=== PATIENT | female | born 1950 | race Caucasian/White ===

== ENCOUNTER 2019-05-22 14:33 | Emergency (ER) | payer MEDICARE, BC ==
[2019-05-22] MEDS ORDERED: methylPREDNISolone Sod Succ/PF 125 MG/2 ML VIAL ONE (15:05)
[2019-05-22 15:16] LABS: #Basophils 0.1 thou/uL (0.0-0.2); #Eosinphils 0.1 thou/uL (0.0-0.7); #Lymphocytes 0.7 thou/uL (1.20-3.40); #Monocytes 0.6 thou/uL (0.11-0.59); #Neutrophils 5.2 thou/uL (1.40-6.50); %Basophils 1.1 % (0.0-1.0); %Eosinophils 1.8 % (0.0-10.0); %Lymphocytes 10.8 % (21.0-51.0); %Monocytes 9.1 % (0.0-10.0); %Neutrophils 77.3 % (42.0-75.0); ALT (SGPT) 19 U/L (8-55); AST (SGOT) 18 U/L (5-34); Albumin 4.5 g/dL (3.4-4.8); Alkaline Phosphatase 137 U/L (40-150); Anion Gap 16 mmol/L (10-20); BUN (Urea Nitrogen) 8 mg/dL (9.8-20.1); Bilirubin, Total 0.4 mg/dL (0.2-1.2); Calc. Creatinine Clearance 0 mL/min (70-130); Calcium 9.7 mg/dL (7.8-10.44); Carbon Dioxide 26 mmol/L (23-31); Chloride 100 mmol/L (98-107); Estimated GFR-MDRD 73; Globulin 3.2 g/dL (2.4-3.5); Glucose 96 mg/dL (80-115); Hemoglobin 11.9 g/dL (12.0-16.0); Mean Corpuscular HGB CONC 32.5 g/dL (32.0-36.0); Mean Corpuscular Hemoglobin 30.8 pg (27.0-31.0); Mean Corpuscular Volume 94.9 fL (78.0-98.0); Mean Platelet Volume 5.3 fL (7.4-10.4); Platelet Count 280 thou/uL (130-400); Protein, Total 7.7 g/dL (6.0-8.3); RBC Distribution Width 11.6 % (11.5-14.5); Red Blood Cell (RBC) Count 3.86 mill/uL (4.20-5.40); Sodium 138 mmol/L (136-145); White Blood Cell (WBC) Count 6.7 thou/uL (4.8-10.8)
[2019-05-22 15:30] LABS: Bilirubin Negative (Negative); Blood, Urine Trace (Negative); Clarity Clear (Clear); Glucose, Urine (Dipstick) Negative (Negative); Leukocyte Large (Negative); Nitrite Negative (Negative); Protein, Urine (Dipstick) Negative (Neg-Trace); Urobilinogen 0.2 mg/dL (Less than 2)
[2019-05-22 15:36] LABS: Bacteria/HPF Rare-Few HPF (None Seen); RBC/HPF 0-3 HPF (0-3); Squamous Epithelial 0-3 HPF (0-3); WBC/HPF 21-50 HPF (0-3)
[2019-05-22] MEDS ORDERED: Albuterol Sulfate 2.5 mg/0.5 ml Neb ONE (15:43)
--- NOTE | 2019-05-22 16:32 | RAD ---
CHEST ONE VIEW: HISTORY: Dyspnea. COMPARISON: Radiograph from 09/23/2018. FINDINGS: The lungs are hyperinflated. Scarring in both upper lobes. Heart size is mildly enlarged. No pneum othorax or effusion. No focal air space consolidation. IMPRESSION: 1. Chronic findings. 2. No acute intrathoracic abnormality. POS: HOME
[2019-05-22] MEDS ORDERED: ALPRAZolam 0.5 MG TAB ONE (17:10)
[2019-05-22 18:21] LABS: Troponin I Less than 0.010 ng/mL (< 0.028)
== END 2019-05-22 18:15 | disposition short-term general hospital (02) ==
LOC: NAV ERS 14:33
DX: I49.3 Ventricular premature depolarization (principal); J44.9 Chronic obstructive pulmonary disease, unspecified; I25.10 Atherosclerotic heart disease of native coronary artery without angina pectoris; I25.2 Old myocardial infarction; E78.5 Hyperlipidemia, unspecified; I10 Essential (primary) hypertension; F41.9 Anxiety disorder, unspecified; Z79.899 Other long term (current) drug therapy
CPT/HCPCS: 36415; 71045; 80053; 81003; 81015; 84484; 85025; 93005; 96374; J2930; J7611; J7620

== ENCOUNTER 2020-02-07 19:47 | Inpatient (IN) | payer MEDICARE, BC, OTHER ==
[2020-02-07] MEDS ORDERED: Albuterol Sulfate 2.5 mg/3 ml Neb NEB PRN (21:36)
[2020-02-07] MEDS ORDERED: Ondansetron ODT 4 MG TAB PO PRN (21:38)
[2020-02-07] MEDS: Acetaminophen 325 MG TAB PO PRN (22:10)
[2020-02-07] MEDS: ALPRAZolam 0.25 MG TAB PO PRN (22:12)
[2020-02-07] MEDS: Albuterol Sulfate 2.5 mg/3 ml Neb NEB SCH (22:16)
[2020-02-07] MEDS: Ipratropium Bromide 2.5 ml Neb NEB SCH (23:14)
[2020-02-07 23:52] VITALS: BMI 26.5
[2020-02-08] MEDS: Albuterol Sulfate 2.5 mg/3 ml Neb NEB SCH ×6 (01:40→22:06)
[2020-02-08] MEDS: Budesonide 0.5 MG/2 ML NEB NEB SCH ×2 (05:35→18:10)
[2020-02-08] MEDS: Acetaminophen 325 MG TAB PO PRN (05:35)
[2020-02-08] MEDS: Ipratropium Bromide 2.5 ml Neb NEB SCH ×4 (05:35→23:33)
[2020-02-08] MEDS: Aspirin Chewable 81 MG TAB PO SCH (09:24)
[2020-02-08] MEDS: Dicyclomine 20 MG TAB PO SCH ×2 (09:24→21:10)
[2020-02-08] MEDS: predniSONE 20 MG TAB PO SCH (09:24)
[2020-02-08] MEDS: Citalopram 10 MG TAB PO SCH (09:24)
[2020-02-08] MEDS: Gabapentin 300 MG CAP PO SCH ×3 (09:25→21:11)
[2020-02-08] MEDS: Fluticasone Propionate Nasal Spray 16 gm Bottle NASAL SCH (09:25)
[2020-02-08] MEDS: guaiFENesin ER 600 MG TAB PO SCH ×2 (09:25→21:11)
[2020-02-08] MEDS: Enoxaparin Sodium 40 MG/0.4 ML SYRINGE SC SCH (09:25)
[2020-02-08] MEDS: Metoprolol Tartrate 25 MG TAB PO SCH ×2 (09:25→21:11)
[2020-02-08] MEDS: ALPRAZolam 0.25 MG TAB PO PRN (15:40)
[2020-02-08] MEDS: Famotidine 20 MG TAB PO SCH (21:10)
[2020-02-08] MEDS: Atorvastatin Calcium 20 MG TAB PO SCH (21:11)
[2020-02-09] MEDS: Albuterol Sulfate 2.5 mg/3 ml Neb NEB SCH ×6 (03:03→22:06)
[2020-02-09] MEDS: Ipratropium Bromide 2.5 ml Neb NEB SCH ×3 (05:27→18:24)
[2020-02-09] MEDS: Budesonide 0.5 MG/2 ML NEB NEB SCH ×2 (05:54→18:24)
[2020-02-09] MEDS: guaiFENesin ER 600 MG TAB PO SCH ×2 (08:43→21:08)
[2020-02-09] MEDS: Acetaminophen 325 MG TAB PO PRN ×2 (08:43→14:37)
[2020-02-09] MEDS: Dicyclomine 20 MG TAB PO SCH ×2 (08:44→21:08)
[2020-02-09] MEDS: predniSONE 20 MG TAB PO SCH (08:44)
[2020-02-09] MEDS: Gabapentin 300 MG CAP PO SCH ×3 (08:44→21:09)
[2020-02-09] MEDS: Citalopram 10 MG TAB PO SCH (08:44)
[2020-02-09] MEDS: Metoprolol Tartrate 25 MG TAB PO SCH ×2 (08:44→21:09)
[2020-02-09] MEDS: Aspirin Chewable 81 MG TAB PO SCH (08:44)
[2020-02-09] MEDS: Enoxaparin Sodium 40 MG/0.4 ML SYRINGE SC SCH (08:44)
[2020-02-09] MEDS: Fluticasone Propionate Nasal Spray 16 gm Bottle NASAL SCH (08:44)
[2020-02-09] MEDS: ALPRAZolam 0.25 MG TAB PO PRN (09:15)
--- NOTE | 2020-02-09 18:39 | HP ---
HISTORY OF PRESENT ILLNESS: The patient is a 69-year-old white female, well known to myself with a history of cancer of the colon, status post radiation, but superimposed on previous severe underlying COPD and subsequently has significant shortness of breath on minimal exertion, who has had a recent exacerbation of her COPD, which has responded to IV steroids and aggressive nebulizer treatment, but has remained very weak, dyspneic on exertion, and therefore, is admitted to [facility] for continued PT and OT. PAST MEDICAL HISTORY: Also remarkable for myocardial infarction 20 years ago, status post single angioplasty with no recurrence since then. She also has a history of hypertension, hyperlipidemia, above-mentioned lung cancer, and COPD. PAST SURGICAL HISTORY: Positive for appendectomy, cholecystectomy, hysterectomy, angioplasty. FAMILY MEDICAL HISTORY: Noncontributory. SOCIAL HISTORY: She has greater than 30 pack-year history of smoking, has not smoked in 5 years. She drinks occasional alcohol. She is a nondrug user. She lives with her of 50 years. ALLERGIES: SHE IS ALLERGIC TO MULTIPLE MEDICATIONS INCLUDING PENICILLIN, OFLOXACIN, PREGABALIN, SERTRALINE, CHLORPROMAZINE, SULFA, ASPIRIN, DECONGESTANT. MEDICATIONS: At this time include; 1. Pepcid 20 mg nightly. 2. Gabapentin 300 three times daily. 3. Lipitor 20 nightly. 4. Bentyl 20 mg twice daily. 5. Celexa 10 mg daily. 6. Xanax 0.25 t.i.d. and p.r.n. 7. Incruse Ellipta 1 puff daily. 8. Ventolin 2 puffs every 4 hours as needed. 9. Flonase 1 spray daily. 10. Mucinex 300 mg every 12 hours. 11. Anoro Ellipta 1 puff daily. 12. Metoprolol 25 twice daily. 13. Proventil 1 puff every 4 hours as needed. 14. Pulmicort 0.25 inhaled twice daily nebulizer. 15. Prednisone 40 mg daily. REVIEW OF SYSTEMS: HEENT: She denies any headaches, dizziness, change in vision or hearing, hoarseness, or dysphagia. PULMONARY: She denies cough, but has dyspnea on minimal exertion, not at rest. She is oxygen dependent. CARDIOVASCULAR: She denies chest pain, palpitations, orthopnea, or paroxysmal nocturnal dyspnea. GASTROINTESTINAL: She denies nausea, vomiting, diarrhea, constipation, or abdominal pain. GENITOURINARY: She denies dysuria, hematuria, or nocturia. MUSCULOSKELETAL: She has diffuse weakness, but is willing to cooperate with therapy and has been cooperating with therapy at [place]. PHYSICAL EXAMINATION: GENERAL: The patient is an elderly white female, who appears older than stated age. She is oriented x3 and cooperative. VITAL SIGNS: Show pulse 73, respirations 16, O2 sats 97% on 2 L, blood pressure 124/68. LUNGS: Clear with markedly decreased breath sounds. No rales or rhonchi. CARDIAC: Regular rhythm. PMI in the epigastric space. ABDOMEN: Soft and nontender. SKIN/EXTREMITIES: No edema, clubbing, cyanosis. NEUROLOGICAL: Intact. LABORATORY DATA: Most recent laboratory shows sodium 136, potassium 4.4, chloride 100, bicarb 22, BUN 9, creatinine 0.75, glucose 174. Procalcitonin 0.02, total protein 6.8. White count 5300, hematocrit 36, hemoglobin 12. ASSESSMENT: 1. A 69-year-old white female with history of COPD and cancer of the lung, status post radiation therapy, presents with exacerbation, which has improved with IV and now oral steroids and aggressive nebulizers, but has become critically deconditioned and therefore admitted to [facility] for continued PT and OT. 2. Fibromyalgia, stable. 3. Anxiety, controlled on alprazolam. 4. Coronary artery disease, status post distant [place] and angioplasty. 5. Hypertension, controlled to goal. PLAN: 1. Continue PT, OT. 2. Continue oxygen supplementation 2 L, she is on this at home. 3. Continue anxiety medications, alprazolam. 4. Continue dicyclomine for irritable bowel. 5. Continue prednisone, slow taper. 6. Continue gabapentin for fibromyalgia and peripheral neuropathy. Job ID: [id number]
[2020-02-09] MEDS: Famotidine 20 MG TAB PO SCH (21:08)
[2020-02-09] MEDS: Atorvastatin Calcium 20 MG TAB PO SCH (21:08)
[2020-02-09] MEDS: ALPRAZolam 0.25 MG TAB PO SCH (21:09)
[2020-02-10] MEDS: Ipratropium Bromide 2.5 ml Neb NEB SCH ×5 (01:24→23:58)
[2020-02-10] MEDS: Albuterol Sulfate 2.5 mg/3 ml Neb NEB SCH ×6 (02:30→22:16)
[2020-02-10] MEDS: Budesonide 0.5 MG/2 ML NEB NEB SCH ×2 (06:03→18:02)
[2020-02-10] MEDS: Fluticasone Propionate Nasal Spray 16 gm Bottle NASAL SCH (09:07)
[2020-02-10] MEDS: Acetaminophen 325 MG TAB PO PRN (09:08)
[2020-02-10] MEDS: Citalopram 10 MG TAB PO SCH (09:08)
[2020-02-10] MEDS: Dicyclomine 20 MG TAB PO SCH ×2 (09:08→20:24)
[2020-02-10] MEDS: Aspirin Chewable 81 MG TAB PO SCH (09:08)
[2020-02-10] MEDS: guaiFENesin ER 600 MG TAB PO SCH ×2 (09:08→20:25)
[2020-02-10] MEDS: Gabapentin 300 MG CAP PO SCH ×3 (09:08→20:24)
[2020-02-10] MEDS: Enoxaparin Sodium 40 MG/0.4 ML SYRINGE SC SCH (09:08)
[2020-02-10] MEDS: predniSONE 20 MG TAB PO SCH (09:08)
[2020-02-10] MEDS: Metoprolol Tartrate 25 MG TAB PO SCH ×2 (09:09→20:25)
[2020-02-10] MEDS: ALPRAZolam 0.25 MG TAB PO SCH ×3 (09:09→20:24)
[2020-02-10] MEDS: Nitrofurantoin Macrocrystal 50 MG CAP PO SCH ×3 (13:20→20:25)
[2020-02-10] MEDS: Famotidine 20 MG TAB PO SCH (20:24)
[2020-02-10] MEDS: Atorvastatin Calcium 20 MG TAB PO SCH (20:24)
[2020-02-11] MEDS: Albuterol Sulfate 2.5 mg/3 ml Neb NEB SCH ×6 (02:16→22:17)
[2020-02-11] MEDS: Ipratropium Bromide 2.5 ml Neb NEB SCH ×4 (05:28→23:36)
[2020-02-11] MEDS: Acetaminophen 325 MG TAB PO PRN ×2 (05:37→09:45)
[2020-02-11] MEDS: Budesonide 0.5 MG/2 ML NEB NEB SCH ×2 (06:15→17:56)
[2020-02-11] MEDS: predniSONE 20 MG TAB PO SCH (09:32)
[2020-02-11] MEDS: Metoprolol Tartrate 25 MG TAB PO SCH ×2 (09:43→21:12)
[2020-02-11] MEDS: Gabapentin 300 MG CAP PO SCH ×3 (09:44→21:11)
[2020-02-11] MEDS: ALPRAZolam 0.25 MG TAB PO SCH ×2 (09:44→14:03)
[2020-02-11] MEDS: Aspirin Chewable 81 MG TAB PO SCH (09:44)
[2020-02-11] MEDS: Dicyclomine 20 MG TAB PO SCH ×2 (09:44→21:11)
[2020-02-11] MEDS: Nitrofurantoin Macrocrystal 50 MG CAP PO SCH ×4 (09:45→21:12)
[2020-02-11] MEDS: Citalopram 10 MG TAB PO SCH (09:45)
[2020-02-11] MEDS: Enoxaparin Sodium 40 MG/0.4 ML SYRINGE SC SCH (09:45)
[2020-02-11] MEDS: guaiFENesin ER 600 MG TAB PO SCH ×2 (09:45→21:11)
[2020-02-11] MEDS: Fluticasone Propionate Nasal Spray 16 gm Bottle NASAL SCH (09:46)
--- NOTE | 2020-02-11 12:00 | PRG ---
DATE OF SERVICE: 02/10/2020 SUBJECTIVE: The patient feels well. No complaints, lying in bed, but has not had therapy today. She is having no cough or shortness of breath at rest. She is eating well. Good bowel movements. Feels she is getting better and will hopefully improve enough to be discharged to home next week. OBJECTIVE: VITAL SIGNS: Temperature is 97, pulse 88, respirations 20, O2 sats 96% on 2 L, blood pressure 117/55. LUNGS: Clear. CARDIAC: C showed regular rhythm. ABDOMEN: Soft, nontender. SKIN/EXTREMITIES: Showed no edema. LABORATORY DATA: Urine culture did return E coli sensitive to the nitrofurantoin the patient is on. ASSESSMENT: 1. Resolving chronic obstructive pulmonary disease with exacerbation. 2. Stable cancer of the lung status post radiation therapy. 3. Sensitive Escherichia coli urinary tract infection, on nitrofurantoin. 4. Severe deconditioning, slowly improving. 5. Chronic hypoxemia secondary to chronic obstructive pulmonary disease, stable. PLAN: 1. Continue PT, OT to restart Wednesday. Continue O2 supplementation. 2. Continue nitrofurantoin 50 mg four times daily. 3. Start steroid taper on 02/12. Job ID: [id number]
--- NOTE | 2020-02-11 12:12 | PRG ---
DATE OF SERVICE: 02/09/2020 SUBJECTIVE: The patient feels well, resting in bed, did not have therapy today. She is having minimal symptoms of dysuria, but mainly of cloudy urine. OBJECTIVE: VITAL SIGNS: Temperature is 98, pulse 106, respirations 20, O2 sats 96% on room air, blood pressure is 110/73. ASSESSMENT: 1. Severe chronic obstructive pulmonary disease exacerbation, resolving with steroid taper and nebulizers. 2. Possible urinary tract infection with cloudy urine and pyuria, bacteriuria. We will start on Macrodantin as the patient is not allergic to this and hopefully will be sensitive. 3. Irritable bowel syndrome, stable. 4. Anxiety, stable. 5. Fibromyalgia, stable. PLAN: 1. Start Macrodantin 50 mg four times daily. 2. Continue prednisone 40 mg daily for one more day and handheld nebulizers. 3. Continue citalopram and alprazolam. 4. Continue Bentyl. 5. Hold physical therapy until Wednesday. Job ID: [id number]
--- NOTE | 2020-02-11 12:21 | PRG ---
DATE OF SERVICE: 02/08/2020 SUBJECTIVE: The patient feels well today, resting, exhausted after therapy, but feels she is getting better. OBJECTIVE: VITAL SIGNS: Shows her pulse 69, respirations 20, O2 sats 96% on 2 L, blood pressure 108/66. LUNGS: Clear. CARDIAC: Shows regular rhythm. ABDOMEN: Soft, nontender. LABORATORY DATA: Showing pyuria and bacteriuria. Culture pending. ASSESSMENT: 1. Severe chronic obstructive pulmonary disease with exacerbation, resolving. 2. Cancer of the lung, status post radiation therapy. No evidence of recurrence. 3. Probable urinary tract infection. We will withhold treatment until sensitivities because of multiple allergies. 4. Coronary artery disease, distant and asymptomatic. 5. Hypertension, controlled to goal. PLAN: 1. Continue PT and OT. Continue steroids for COPD exacerbation and handheld nebulizers. 2. Await results of urine culture. 3. Continue 2 L O2 chronically. 4. Continue dicyclomine for irritable bowel. 5. Continue alprazolam for anxiety. Job ID: [id number]
[2020-02-11] MEDS: Famotidine 20 MG TAB PO SCH (21:11)
[2020-02-11] MEDS: Atorvastatin Calcium 20 MG TAB PO SCH (21:11)
[2020-02-11] MEDS ORDERED: ALPRAZolam 0.5 MG TAB PO PRN (22:02)
[2020-02-11] MEDS ORDERED: ALPRAZolam 0.5 MG TAB PO SCH (22:15)
[2020-02-12] MEDS: Albuterol Sulfate 2.5 mg/3 ml Neb NEB SCH ×6 (02:08→22:24)
[2020-02-12] MEDS: Ipratropium Bromide 2.5 ml Neb NEB SCH ×4 (05:20→23:48)
[2020-02-12] MEDS: Budesonide 0.5 MG/2 ML NEB NEB SCH ×2 (05:44→18:36)
[2020-02-12] MEDS: Nitrofurantoin Macrocrystal 50 MG CAP PO SCH ×4 (09:30→20:13)
[2020-02-12] MEDS: predniSONE 20 MG TAB PO SCH (09:30)
[2020-02-12] MEDS: Enoxaparin Sodium 40 MG/0.4 ML SYRINGE SC SCH (09:30)
[2020-02-12] MEDS: Metoprolol Tartrate 25 MG TAB PO SCH ×2 (09:30→20:13)
[2020-02-12] MEDS: Gabapentin 300 MG CAP PO SCH ×3 (09:30→20:13)
[2020-02-12] MEDS: Fluticasone Propionate Nasal Spray 16 gm Bottle NASAL SCH (09:30)
[2020-02-12] MEDS: Dicyclomine 20 MG TAB PO SCH ×2 (09:31→20:13)
[2020-02-12] MEDS: Aspirin Chewable 81 MG TAB PO SCH (09:31)
[2020-02-12] MEDS: Citalopram 10 MG TAB PO SCH (09:31)
[2020-02-12] MEDS: ALPRAZolam 0.5 MG TAB PO SCH ×2 (09:31→15:18)
[2020-02-12] MEDS: guaiFENesin ER 600 MG TAB PO SCH ×2 (09:31→20:13)
[2020-02-12] MEDS: Acetaminophen 325 MG TAB PO PRN (15:18)
[2020-02-12] MEDS: ALPRAZolam 0.25 MG TAB PO SCH (20:12)
[2020-02-12] MEDS: Atorvastatin Calcium 20 MG TAB PO SCH (20:12)
[2020-02-12] MEDS: Famotidine 20 MG TAB PO SCH (20:13)
[2020-02-13] MEDS: Albuterol Sulfate 2.5 mg/3 ml Neb NEB SCH ×6 (02:48→21:08)
[2020-02-13] MEDS: Ipratropium Bromide 2.5 ml Neb NEB SCH ×3 (05:45→17:46)
[2020-02-13] MEDS: Budesonide 0.5 MG/2 ML NEB NEB SCH ×2 (06:09→17:49)
[2020-02-13] MEDS: Enoxaparin Sodium 40 MG/0.4 ML SYRINGE SC SCH (09:16)
[2020-02-13] MEDS: Citalopram 10 MG TAB PO SCH (09:17)
[2020-02-13] MEDS: Gabapentin 300 MG CAP PO SCH ×3 (09:17→21:08)
[2020-02-13] MEDS: guaiFENesin ER 600 MG TAB PO SCH ×2 (09:17→21:07)
[2020-02-13] MEDS: predniSONE 20 MG TAB PO SCH (09:17)
[2020-02-13] MEDS: Aspirin Chewable 81 MG TAB PO SCH (09:17)
[2020-02-13] MEDS: Metoprolol Tartrate 25 MG TAB PO SCH ×2 (09:17→21:08)
[2020-02-13] MEDS: Dicyclomine 20 MG TAB PO SCH ×2 (09:17→21:08)
[2020-02-13] MEDS: Nitrofurantoin Macrocrystal 50 MG CAP PO SCH ×4 (09:18→21:07)
[2020-02-13] MEDS: ALPRAZolam 0.25 MG TAB PO SCH ×4 (09:19→21:12)
[2020-02-13] MEDS: Fluticasone Propionate Nasal Spray 16 gm Bottle NASAL SCH (09:20)
[2020-02-13] MEDS: Acetaminophen 325 MG TAB PO PRN (09:24)
[2020-02-13] MEDS: Famotidine 20 MG TAB PO SCH (21:07)
[2020-02-13] MEDS: Simethicone Chewable 80 MG TAB PO SCH (21:08)
[2020-02-13] MEDS: Atorvastatin Calcium 20 MG TAB PO SCH (21:08)
[2020-02-14] MEDS: Ipratropium Bromide 2.5 ml Neb NEB SCH ×5 (00:07→21:49)
[2020-02-14] MEDS: Albuterol Sulfate 2.5 mg/3 ml Neb NEB SCH ×6 (01:57→22:04)
[2020-02-14] MEDS: Budesonide 0.5 MG/2 ML NEB NEB SCH ×2 (05:18→17:08)
[2020-02-14] MEDS: Fluticasone Propionate Nasal Spray 16 gm Bottle NASAL SCH (08:24)
[2020-02-14] MEDS: ALPRAZolam 0.25 MG TAB PO SCH ×3 (08:25→21:49)
[2020-02-14] MEDS: Saccharomyces boulardii 250 MG CAP PO SCH (08:25)
[2020-02-14] MEDS: Simethicone Chewable 80 MG TAB PO SCH ×2 (08:25→14:17)
[2020-02-14] MEDS: predniSONE 20 MG TAB PO SCH (08:25)
[2020-02-14] MEDS: Citalopram 10 MG TAB PO SCH (08:26)
[2020-02-14] MEDS: Enoxaparin Sodium 40 MG/0.4 ML SYRINGE SC SCH (08:26)
[2020-02-14] MEDS: Dicyclomine 20 MG TAB PO SCH ×2 (08:26→21:47)
[2020-02-14] MEDS: guaiFENesin ER 600 MG TAB PO SCH ×2 (08:26→21:47)
[2020-02-14] MEDS: Gabapentin 300 MG CAP PO SCH ×2 (08:26→14:17)
[2020-02-14] MEDS: Nitrofurantoin Macrocrystal 50 MG CAP PO SCH ×4 (08:27→21:49)
[2020-02-14] MEDS: Aspirin Chewable 81 MG TAB PO SCH (08:27)
[2020-02-14] MEDS: Metoprolol Tartrate 25 MG TAB PO SCH ×2 (12:26→21:48)
[2020-02-14] MEDS: Acetaminophen 325 MG TAB PO PRN (13:42)
--- NOTE | 2020-02-14 21:29 | PRG ---
DATE OF SERVICE: 02/13/2020 SUBJECTIVE: The patient feels very fatigued. No cough, sputum production, or chest pain, but is having dizzy spells and undergoing her therapy. OBJECTIVE: VITAL SIGNS: Temperature is 97.4, pulse 69, respirations 15, O2 sats 98% on room air, and blood pressure . LUNGS: Show decreased breath sounds. CARDIAC: Showed regular rhythm. ABDOMEN: Soft and nontender. SKIN/EXTREMITIES: Showed no edema. ASSESSMENT: 1. Chronic obstructive pulmonary disease with exacerbation, resolving with steroid taper and bronchodilators. 2. Deconditioning, improving slowly with weakness and shortness of breath. 3. Coronary artery disease, asymptomatic with distant myocardial infarction. 4. Cancer of the lung, status post radiation ___and will decrease prednisone to 10 mg daily. PLAN: 1. Continue PT, OT. 2. Continue to monitor currently for urinary tract infection. 3. Continue pain medications from prehospitalization. Job ID: [id number] [facility]
--- NOTE | 2020-02-14 21:41 | PRG ---
DATE OF SERVICE: 02/14/2020 OBJECTIVE: The patient is resting well with no complaints, awaiting for more therapy tomorrow. She became severely fatigued with therapy having some loose stools but only minimal abdominal pain. OBJECTIVE: VITAL SIGNS: Temperature is 98.2, pulse 75, respirations 18, O2 sats 100% on 2 L, and blood pressure 112/61. LUNGS: Show decreased breath sounds. CARDIAC: Regular rhythm. ABDOMEN: Soft and nontender. SKIN AND EXTREMITIES: Show trace edema. No clubbing, or cyanosis. ASSESSMENT: 1. Resolving exacerbation of chronic obstructive pulmonary disease, on prednisone taper. 2. Stable cancer of the lung status post radiation therapy. No evidence of recurrence. 3. Sensitive Escherichia coli urinary tract infection, on nitrofurantoin. 4. Severe deconditioning, improving. 5. Chronic hypoxia secondary to chronic obstructive pulmonary disease, stable. PLAN: 1. Continue PT and OT. 2. Continue nitrofurantoin 50 mg 4 times daily. 3. Start steroid taper on __wednesday . Job ID: [id number] MTDD
[2020-02-14] MEDS: Famotidine 20 MG TAB PO SCH (21:47)
[2020-02-14] MEDS: Gabapentin 100 MG CAP PO SCH (21:47)
[2020-02-14] MEDS: Atorvastatin Calcium 20 MG TAB PO SCH (21:48)
[2020-02-15] MEDS: Simethicone Chewable 80 MG TAB PO SCH ×4 (00:54→22:12)
[2020-02-15] MEDS: Albuterol Sulfate 2.5 mg/3 ml Neb NEB SCH ×6 (02:22→22:33)
[2020-02-15] MEDS: Ipratropium Bromide 2.5 ml Neb NEB SCH ×3 (06:11→17:45)
[2020-02-15] MEDS: Budesonide 0.5 MG/2 ML NEB NEB SCH ×2 (06:12→17:45)
--- NOTE | 2020-02-15 06:42 | PRG ---
DATE OF SERVICE: 02/12/2020 SUBJECTIVE: The patient is somewhat fatigued after having therapy today. She is resting this afternoon, and she was not able to do all of her therapy. She is having no symptoms at rest. No shortness of breath or chest pain. OBJECTIVE: VITAL SIGNS: Pulse is 81, respirations 18, O2 saturation is on room air, and blood pressure 125/68. LUNGS: Show decreased breath sounds. CARDIAC: Showed regular rhythm. ABDOMEN: Soft, nontender. ASSESSMENT: 1. Resolving exacerbation of chronic obstructive pulmonary disease. 2. Severe deconditioning . 3. Coronary artery disease, distant and asymptomatic. 4. Escherichia coli urinary tract infection, resolving with nitrofurantoin. PLAN: 1. Continue PT, OT. 2. Continue O2 supplementation. 3. Continue to monitor for signs of urosepsis. 4. Steroid taper will be started tomorrow. Job ID: [id number]
--- NOTE | 2020-02-15 06:48 | PRG ---
DATE OF SERVICE: 02/14/2020 SUBJECTIVE: The patient states she is still feeling a little weak; especially when she takes her blood pressure medicines, unable to do her therapy. OBJECTIVE: VITAL SIGNS: Show decreased blood pressure of 95/52, pulse of 93 on standing today with blood pressure of 111/57 and pulse of 75, O2 saturation of 96% and blood pressure lying. LUNGS: Show decreased breath sounds. CARDIAC EXAMINATION: Showed regular rhythm. ABDOMEN: Soft and nontender. ASSESSMENT: 1. Severe deconditioning, being limited by dyspnea on exertion and lower blood pressure. 2. Cancer of the lung. No evidence of recurrence. PLAN: 1. Decrease gabapentin to 200 mg 3 times daily, decrease metoprolol to 12.5 twice daily. 2. Monitor vital signs. 3. Monitor fatigue and weakness. 4. Continue to monitor chronic weakness .. Job ID: [id number] MTDD
[2020-02-15] MEDS: Nitrofurantoin Macrocrystal 50 MG CAP PO SCH ×4 (08:11→22:10)
[2020-02-15] MEDS: ALPRAZolam 0.25 MG TAB PO SCH ×3 (08:11→22:10)
[2020-02-15] MEDS: Enoxaparin Sodium 40 MG/0.4 ML SYRINGE SC SCH (08:12)
[2020-02-15] MEDS: Gabapentin 100 MG CAP PO SCH ×3 (08:12→22:10)
[2020-02-15] MEDS: predniSONE 20 MG TAB PO SCH (08:13)
[2020-02-15] MEDS: guaiFENesin ER 600 MG TAB PO SCH ×2 (08:14→22:09)
[2020-02-15] MEDS: Saccharomyces boulardii 250 MG CAP PO SCH (08:14)
[2020-02-15] MEDS: Citalopram 10 MG TAB PO SCH (08:14)
[2020-02-15] MEDS: Metoprolol Tartrate 25 MG TAB PO SCH ×2 (08:15→22:09)
[2020-02-15] MEDS: Aspirin Chewable 81 MG TAB PO SCH (08:15)
[2020-02-15] MEDS: Dicyclomine 20 MG TAB PO SCH ×2 (08:15→22:10)
[2020-02-15] MEDS: Fluticasone Propionate Nasal Spray 16 gm Bottle NASAL SCH (08:16)
[2020-02-15] MEDS: Acetaminophen 325 MG TAB PO PRN (12:32)
[2020-02-15] MEDS: Famotidine 20 MG TAB PO SCH (22:10)
[2020-02-15] MEDS: Atorvastatin Calcium 20 MG TAB PO SCH (22:10)
[2020-02-16] MEDS: Ipratropium Bromide 2.5 ml Neb NEB SCH ×4 (01:14→17:23)
[2020-02-16] MEDS: Albuterol Sulfate 2.5 mg/3 ml Neb NEB SCH ×6 (04:22→21:31)
[2020-02-16] MEDS: Budesonide 0.5 MG/2 ML NEB NEB SCH ×2 (06:21→17:25)
[2020-02-16] MEDS: Acetaminophen 325 MG TAB PO PRN ×2 (06:45→19:21)
[2020-02-16] MEDS: Gabapentin 100 MG CAP PO SCH ×3 (08:26→20:48)
[2020-02-16] MEDS: Saccharomyces boulardii 250 MG CAP PO SCH (08:26)
[2020-02-16] MEDS: guaiFENesin ER 600 MG TAB PO SCH ×2 (08:27→20:50)
[2020-02-16] MEDS: ALPRAZolam 0.25 MG TAB PO SCH ×3 (08:27→20:49)
[2020-02-16] MEDS: predniSONE 20 MG TAB PO SCH (08:27)
[2020-02-16] MEDS: Metoprolol Tartrate 25 MG TAB PO SCH ×2 (08:28→20:49)
[2020-02-16] MEDS: Citalopram 10 MG TAB PO SCH (08:28)
[2020-02-16] MEDS: Dicyclomine 20 MG TAB PO SCH ×2 (08:28→20:50)
[2020-02-16] MEDS: Aspirin Chewable 81 MG TAB PO SCH (08:28)
[2020-02-16] MEDS: Nitrofurantoin Macrocrystal 50 MG CAP PO SCH ×4 (08:28→20:50)
[2020-02-16] MEDS: Fluticasone Propionate Nasal Spray 16 gm Bottle NASAL SCH (08:29)
[2020-02-16] MEDS: Enoxaparin Sodium 40 MG/0.4 ML SYRINGE SC SCH (08:29)
[2020-02-16] MEDS: Simethicone Chewable 80 MG TAB PO SCH ×3 (08:30→20:48)
--- NOTE | 2020-02-16 17:32 | PRG ---
DATE OF SERVICE: 02/16/2020 SUBJECTIVE: The patient feels much better, less fatigued today, did cooperate with therapy, having no chest pain or shortness of breath or gaseous distention. Her abdomen is doing better. OBJECTIVE: VITAL SIGNS: O2 saturation is 97% on 2 L, pulse 87, blood pressure 117/61. LUNGS: Decreased breath sounds. CARDIAC: Regular rhythm. ABDOMEN: Soft, nontender. ASSESSMENT: 1. Improving fatigue secondary to decrease in dose of gabapentin. 2. Stable chronic obstructive pulmonary disease with exacerbation. 3. Stable cancer of the lung, status post radiation. 4. Improving deconditioning. PLAN: 1. Continue PT, OT. 2. Obtain repeat CBC, comprehensive metabolic profile in the a.m., has been longer than one week. 3. Continue to monitor for gaseous distention, abdominal pain. Job ID: [id number]
--- NOTE | 2020-02-16 17:38 | PRG ---
DATE OF SERVICE: 02/15/2020 SUBJECTIVE: The patient feels very fatigued, unable to do therapy. No increased shortness of breath or chest pain. OBJECTIVE: LUNGS: Clear. CARDIAC: Showed regular rhythm. ABDOMEN: Soft and nontender. VITAL SIGNS: Temperature is 96, pulse 78, respirations 18, O2 saturations 99% on 2 L, blood pressure 133/63. ASSESSMENT: 1. Fatigue, possibly due to drug effect, and we will decrease gabapentin to 200 three times daily. 2. Chronic obstructive pulmonary disease exacerbation, improving, and we will decrease prednisone to 10 mg daily because of possible steroid myopathy. 3. Fibromyalgia, stable with decreased gabapentin. 4. Irritable bowel, stable on dicyclomine. PLAN: 1. Continue PT and OT. Monitor on decreased gabapentin 200 three times daily. 2. Continue to monitor COPD on decreased prednisone 10 mg daily. Job ID: [id number]
[2020-02-16] MEDS: Atorvastatin Calcium 20 MG TAB PO SCH (20:48)
[2020-02-16] MEDS: Famotidine 20 MG TAB PO SCH (20:48)
[2020-02-17] MEDS: Albuterol Sulfate 2.5 mg/3 ml Neb NEB SCH ×6 (03:07→21:12)
[2020-02-17] MEDS: Ipratropium Bromide 2.5 ml Neb NEB SCH ×4 (05:31→18:02)
[2020-02-17] MEDS: Budesonide 0.5 MG/2 ML NEB NEB SCH ×2 (05:36→18:03)
[2020-02-17 06:06] LABS: #Basophils 0.1 thou/uL (0.0-0.2); #Eosinphils 0.1 thou/uL (0.0-0.7); #Monocytes 0.5 thou/uL (0.11-0.59); #Neutrophils 5.6 thou/uL (1.40-6.50); %Basophils 0.7 % (0.0-1.0); %Eosinophils 0.9 % (0.0-10.0); %Monocytes 6.9 % (0.0-10.0); %Neutrophils 77.4 % (42.0-75.0); Mean Corpuscular HGB CONC 32.5 g/dL (32.0-36.0); Mean Corpuscular Hemoglobin 32.2 pg (27.0-31.0); Mean Corpuscular Volume 99.3 fL (78.0-98.0); Mean Platelet Volume 5.8 fL (7.4-10.4); Platelet Count 217 thou/uL (130-400); RBC Distribution Width 12.1 % (11.5-14.5); White Blood Cell (WBC) Count 7.3 thou/uL (4.8-10.8)
[2020-02-17 06:31] LABS: ALT (SGPT) 28 U/L (8-55); AST (SGOT) 13 U/L (5-34); Albumin 3.6 g/dL (3.4-4.8); Alkaline Phosphatase 87 U/L (40-110); Anion Gap 12 mmol/L (10-20); BUN (Urea Nitrogen) 9 mg/dL (9.8-20.1); Bilirubin, Total 0.3 mg/dL (0.2-1.2); Calc. Creatinine Clearance 92 mL/min (70-130); Calcium 8.4 mg/dL (7.8-10.44); Carbon Dioxide 28 mmol/L (23-31); Chloride 102 mmol/L (98-107); Estimated GFR-MDRD 90; Globulin 2.2 g/dL (2.4-3.5); Potassium 3.4 mmol/L (3.5-5.1); Protein, Total 5.8 g/dL (6.0-8.3); Sodium 139 mmol/L (136-145)
[2020-02-17 06:36] LABS: Glucose 86 mg/dL (80-115)
[2020-02-17] MEDS: ALPRAZolam 0.25 MG TAB PO SCH ×3 (08:29→21:09)
[2020-02-17] MEDS: Aspirin Chewable 81 MG TAB PO SCH (08:29)
[2020-02-17] MEDS: Citalopram 10 MG TAB PO SCH (08:30)
[2020-02-17] MEDS: Dicyclomine 20 MG TAB PO SCH ×2 (08:30→21:09)
[2020-02-17] MEDS: Enoxaparin Sodium 40 MG/0.4 ML SYRINGE SC SCH (08:30)
[2020-02-17] MEDS: Metoprolol Tartrate 25 MG TAB PO SCH ×2 (08:31→21:15)
[2020-02-17] MEDS: guaiFENesin ER 600 MG TAB PO SCH ×2 (08:31→21:36)
[2020-02-17] MEDS: Gabapentin 100 MG CAP PO SCH ×3 (08:31→21:08)
[2020-02-17] MEDS: predniSONE 20 MG TAB PO SCH (08:31)
[2020-02-17] MEDS: Simethicone Chewable 80 MG TAB PO SCH ×3 (08:32→21:19)
[2020-02-17] MEDS: Saccharomyces boulardii 250 MG CAP PO SCH (08:32)
[2020-02-17] MEDS: Fluticasone Propionate Nasal Spray 16 gm Bottle NASAL SCH (08:37)
[2020-02-17] MEDS: Acetaminophen 325 MG TAB PO PRN ×2 (08:38→16:17)
--- NOTE | 2020-02-17 14:44 | PRG ---
DATE OF SERVICE: 02/17/2020 SUBJECTIVE: The patient feels well today and rested. She did have therapy yesterday afternoon, which caused some back pain, but her strength is getting better and in fact she is attempting to have a shower today and change of clothes and wash her hair. OBJECTIVE: VITAL SIGNS: Pulse 95, respirations 20, O2 sats 97% on 2 L, and blood pressure 116/60. LUNGS: Decreased breath sounds in the bases. CARDIAC: Regular rhythm. No gallops or murmurs. ABDOMEN: Soft and nontender. SKIN/EXTREMITIES: No edema. ASSESSMENT: 1. Resolving chronic obstructive pulmonary disease exacerbation with persistent oxygen dependent stage IV chronic obstructive pulmonary disease. 2. Deconditioning, improving slowly. 3. Cancer of the lung, status post radiotherapy. 4. Fibromyalgia, stable. 5. Degenerative disk disease with increased pain with therapy, but stable. PLAN: Continue PT and OT. Attempt to discharge next week. Increase activities of daily living in the hospital. Continue prehospitalization pain medication. Job ID: [id number]
--- NOTE | 2020-02-17 14:45 | PRG ---
DATE OF SERVICE: 02/16/2020 SUBJECTIVE: The patient is exhausted, but feels well. Has worked with therapy today. She is having no chest pain or shortness of breath. She has a good mood and is eating well. OBJECTIVE: VITAL SIGNS: Show her blood pressure is 116/60, temperature 98, pulse 95, respirations 18, O2 saturations 97% on 2 L. LUNGS: Clear. CARDIAC: Shows regular rhythm. ABDOMEN: Soft and nontender. SKIN/EXTREMITIES: Show no edema, clubbing, or cyanosis. ASSESSMENT: 1. Resolving exacerbation of chronic obstructive pulmonary disease. 2. Stable cancer of the lung, status post radiotherapy. 3. Deconditioning, improving slowly. 4. Fibromyalgia, stable. 5. Degenerative disk disease of back, stable. PLAN: Continue PT/OT. Continue on low-dose steroids. Continue bronchodilators. Attempt to discharge next week. Job ID: [id number]
[2020-02-17] MEDS: Famotidine 20 MG TAB PO SCH (21:07)
[2020-02-17] MEDS: Atorvastatin Calcium 20 MG TAB PO SCH (21:09)
[2020-02-18] MEDS: Ipratropium Bromide 2.5 ml Neb NEB SCH ×4 (00:59→17:52)
[2020-02-18] MEDS: Albuterol Sulfate 2.5 mg/3 ml Neb NEB SCH ×6 (02:42→21:06)
[2020-02-18] MEDS: Acetaminophen 325 MG TAB PO PRN (05:11)
[2020-02-18] MEDS: Budesonide 0.5 MG/2 ML NEB NEB SCH ×2 (05:38→17:53)
[2020-02-18] MEDS: ALPRAZolam 0.25 MG TAB PO SCH ×3 (08:46→21:04)
[2020-02-18] MEDS: Citalopram 10 MG TAB PO SCH (08:47)
[2020-02-18] MEDS: Enoxaparin Sodium 40 MG/0.4 ML SYRINGE SC SCH (08:47)
[2020-02-18] MEDS: Gabapentin 100 MG CAP PO SCH ×3 (08:47→21:04)
[2020-02-18] MEDS: Aspirin Chewable 81 MG TAB PO SCH (08:47)
[2020-02-18] MEDS: guaiFENesin ER 600 MG TAB PO SCH ×2 (08:47→21:05)
[2020-02-18] MEDS: Dicyclomine 20 MG TAB PO SCH ×2 (08:47→21:05)
[2020-02-18] MEDS: predniSONE 20 MG TAB PO SCH (08:48)
[2020-02-18] MEDS: Metoprolol Tartrate 25 MG TAB PO SCH ×2 (08:48→21:05)
[2020-02-18] MEDS: Simethicone Chewable 80 MG TAB PO SCH ×3 (08:49→21:04)
[2020-02-18] MEDS: Saccharomyces boulardii 250 MG CAP PO SCH (08:49)
[2020-02-18] MEDS: Fluticasone Propionate Nasal Spray 16 gm Bottle NASAL SCH (08:50)
[2020-02-18] MEDS: Famotidine 20 MG TAB PO SCH (21:04)
[2020-02-18] MEDS: Atorvastatin Calcium 20 MG TAB PO SCH (21:04)
[2020-02-19] MEDS: Ipratropium Bromide 2.5 ml Neb NEB SCH ×4 (00:39→17:33)
[2020-02-19] MEDS: Albuterol Sulfate 2.5 mg/3 ml Neb NEB SCH ×6 (02:46→22:30)
[2020-02-19] MEDS: Budesonide 0.5 MG/2 ML NEB NEB SCH ×2 (05:16→18:12)
[2020-02-19] MEDS: Acetaminophen 325 MG TAB PO PRN ×3 (06:04→14:29)
[2020-02-19] MEDS: Saccharomyces boulardii 250 MG CAP PO SCH (09:54)
[2020-02-19] MEDS: predniSONE 20 MG TAB PO SCH (09:54)
[2020-02-19] MEDS: Simethicone Chewable 80 MG TAB PO SCH ×3 (09:55→21:17)
[2020-02-19] MEDS: Metoprolol Tartrate 25 MG TAB PO SCH ×2 (09:55→21:23)
[2020-02-19] MEDS: ALPRAZolam 0.25 MG TAB PO SCH ×3 (09:56→21:14)
[2020-02-19] MEDS: Dicyclomine 20 MG TAB PO SCH ×2 (09:56→21:15)
[2020-02-19] MEDS: Gabapentin 100 MG CAP PO SCH ×3 (09:56→21:16)
[2020-02-19] MEDS: guaiFENesin ER 600 MG TAB PO SCH ×2 (09:56→21:17)
[2020-02-19] MEDS: Citalopram 10 MG TAB PO SCH (09:56)
[2020-02-19] MEDS: Aspirin Chewable 81 MG TAB PO SCH (09:56)
[2020-02-19] MEDS: Enoxaparin Sodium 40 MG/0.4 ML SYRINGE SC SCH (09:56)
[2020-02-19] MEDS: Fluticasone Propionate Nasal Spray 16 gm Bottle NASAL SCH (10:06)
[2020-02-19] MEDS: Atorvastatin Calcium 20 MG TAB PO SCH (21:15)
[2020-02-19] MEDS: Famotidine 20 MG TAB PO SCH (21:15)
[2020-02-20] MEDS: Ipratropium Bromide 2.5 ml Neb NEB SCH ×4 (00:06→17:58)
[2020-02-20] MEDS: Albuterol Sulfate 2.5 mg/3 ml Neb NEB SCH ×6 (03:23→21:16)
[2020-02-20] MEDS: Budesonide 0.5 MG/2 ML NEB NEB SCH ×2 (05:58→18:00)
[2020-02-20] MEDS: Acetaminophen 325 MG TAB PO PRN ×2 (06:05→13:43)
[2020-02-20] MEDS: Enoxaparin Sodium 40 MG/0.4 ML SYRINGE SC SCH (08:39)
[2020-02-20] MEDS: Saccharomyces boulardii 250 MG CAP PO SCH (08:39)
[2020-02-20] MEDS: guaiFENesin ER 600 MG TAB PO SCH ×2 (08:39→21:14)
[2020-02-20] MEDS: Simethicone Chewable 80 MG TAB PO SCH ×3 (08:39→21:14)
[2020-02-20] MEDS: Metoprolol Tartrate 25 MG TAB PO SCH ×2 (08:40→21:15)
[2020-02-20] MEDS: Dicyclomine 20 MG TAB PO SCH ×2 (08:40→21:14)
[2020-02-20] MEDS: ALPRAZolam 0.25 MG TAB PO SCH ×3 (08:40→21:14)
[2020-02-20] MEDS: predniSONE 20 MG TAB PO SCH (08:40)
[2020-02-20] MEDS: Gabapentin 100 MG CAP PO SCH ×2 (08:40→15:06)
[2020-02-20] MEDS: Citalopram 10 MG TAB PO SCH (08:40)
[2020-02-20] MEDS: Aspirin Chewable 81 MG TAB PO SCH (08:41)
[2020-02-20] MEDS: Fluticasone Propionate Nasal Spray 16 gm Bottle NASAL SCH (08:41)
--- NOTE | 2020-02-20 08:57 | PRG ---
DATE OF SERVICE: 02/19/2020 SUBJECTIVE: The patient feels well except for persistent back spasms, worse last night, causing significant discomfort and unable to rest. She has been working with therapy with shortness of breath, but is improving. OBJECTIVE: VITAL SIGNS: Temperature is 97, pulse 89, respirations 20, O2 saturations 97% on 2 L, and blood pressure 121/58. LUNGS: Clear. CARDIAC: Regular rhythm. ABDOMEN: Soft and nontender. BACK: Tenderness to palpation. ASSESSMENT: 1. Recurrent spasms in the back, most likely due to degenerative disk disease and fibromyalgia. We will give gabapentin back 300 at night and continue 200 twice a day during the day. We will obtain information that the patient has about fibromyalgia new treatment. 2. Chronic obstructive pulmonary disease with exacerbation, improving, with increasing exercise tolerance, and we will continue therapy. 3. Cancer of the lung, status post radiation. No evidence recurrence. 4. Irritable bowel syndrome, appears to be stable. PLAN: 1. Increase gabapentin to 300 at night and 200 during the day twice daily. 2. Obtain new information about fibromyalgia treatment. 3. Continue PT/OT. Job ID: [id number]
[2020-02-20] MEDS: Atorvastatin Calcium 20 MG TAB PO SCH (21:14)
[2020-02-20] MEDS: Gabapentin 300 MG CAP PO SCH (21:14)
[2020-02-20] MEDS: Famotidine 20 MG TAB PO SCH (21:18)
[2020-02-21] MEDS: Ipratropium Bromide 2.5 ml Neb NEB SCH ×4 (03:32→17:37)
[2020-02-21] MEDS: Albuterol Sulfate 2.5 mg/3 ml Neb NEB SCH ×6 (03:33→21:44)
[2020-02-21] MEDS: Budesonide 0.5 MG/2 ML NEB NEB SCH ×2 (05:31→17:37)
[2020-02-21] MEDS: Acetaminophen 325 MG TAB PO PRN ×2 (06:32→20:53)
--- NOTE | 2020-02-21 07:49 | RAD ---
RADIOGRAPH CHEST 1 VIEW: Date: 02/21/2020. Time: 6:48 a.m. HISTORY: A 69-year-old female with chest pain and dyspnea. COMPARISON: 02/02/2020. FINDINGS: Right apical stranding consistent with post treatment scar unchanged. Diffuse bilateral hyperinflati on suggestive of COPD. No new consolidation. No pulmonary edema or pneumothorax. No cardiomegaly. No interval change overall. IMPRESSION: 1. No acute findings. 2. Right apical pulmonary scar consistent with history of treated right upper lobe lung cancer. 3. Emphysema. JN [] POS: JIN
[2020-02-21] MEDS: ALPRAZolam 0.25 MG TAB PO SCH ×3 (08:30→20:53)
[2020-02-21] MEDS: Aspirin Chewable 81 MG TAB PO SCH (08:30)
[2020-02-21] MEDS: Citalopram 10 MG TAB PO SCH (08:30)
[2020-02-21] MEDS: Dicyclomine 20 MG TAB PO SCH ×2 (08:30→20:54)
[2020-02-21] MEDS: Fluticasone Propionate Nasal Spray 16 gm Bottle NASAL SCH (08:31)
[2020-02-21] MEDS: guaiFENesin ER 600 MG TAB PO SCH ×2 (08:31→20:54)
[2020-02-21] MEDS: Metoprolol Tartrate 25 MG TAB PO SCH ×2 (08:31→20:54)
[2020-02-21] MEDS: Gabapentin 100 MG CAP PO SCH ×2 (08:31→13:44)
[2020-02-21] MEDS: predniSONE 20 MG TAB PO SCH (08:32)
[2020-02-21] MEDS: Saccharomyces boulardii 250 MG CAP PO SCH (08:32)
[2020-02-21] MEDS: Simethicone Chewable 80 MG TAB PO SCH ×3 (08:32→20:53)
[2020-02-21] MEDS: Enoxaparin Sodium 40 MG/0.4 ML SYRINGE SC SCH (08:37)
[2020-02-21] MEDS: Gabapentin 300 MG CAP PO SCH (20:53)
[2020-02-21] MEDS: Famotidine 20 MG TAB PO SCH (20:53)
[2020-02-21] MEDS: Atorvastatin Calcium 20 MG TAB PO SCH (20:54)
[2020-02-22] MEDS: Ipratropium Bromide 2.5 ml Neb NEB SCH ×5 (01:01→23:22)
[2020-02-22] MEDS: Albuterol Sulfate 2.5 mg/3 ml Neb NEB SCH ×6 (01:53→23:22)
[2020-02-22] MEDS: Acetaminophen 325 MG TAB PO PRN ×4 (03:36→23:22)
[2020-02-22] MEDS: Budesonide 0.5 MG/2 ML NEB NEB SCH ×2 (05:37→18:12)
[2020-02-22] MEDS: Aspirin Chewable 81 MG TAB PO SCH (08:25)
[2020-02-22] MEDS: ALPRAZolam 0.25 MG TAB PO SCH ×3 (08:25→20:36)
[2020-02-22] MEDS: Citalopram 10 MG TAB PO SCH (08:25)
[2020-02-22] MEDS: predniSONE 20 MG TAB PO SCH (08:25)
[2020-02-22] MEDS: Metoprolol Tartrate 25 MG TAB PO SCH ×2 (08:26→20:37)
[2020-02-22] MEDS: guaiFENesin ER 600 MG TAB PO SCH ×2 (08:26→20:36)
[2020-02-22] MEDS: Saccharomyces boulardii 250 MG CAP PO SCH (08:26)
[2020-02-22] MEDS: Gabapentin 100 MG CAP PO SCH ×2 (08:26→14:04)
[2020-02-22] MEDS: Dicyclomine 20 MG TAB PO SCH ×2 (08:26→20:37)
[2020-02-22] MEDS: Simethicone Chewable 80 MG TAB PO SCH ×3 (08:27→20:38)
[2020-02-22] MEDS: Enoxaparin Sodium 40 MG/0.4 ML SYRINGE SC SCH (08:32)
[2020-02-22] MEDS: Fluticasone Propionate Nasal Spray 16 gm Bottle NASAL SCH (08:33)
--- NOTE | 2020-02-22 18:02 | PRG ---
DATE OF SERVICE: 02/20/2020 SUBJECTIVE: The patient feels well except for back pain, which has improved somewhat, but is still limiting her therapy somewhat. She is denying any chest pain or shortness of breath and is feeling better. OBJECTIVE: VITAL SIGNS: Her pulse is 82, respirations 24, O2 sats 97% on 2 L. LUNGS: Clear. CARDIAC: With decreased breath sounds. CARDIAC: Regular rhythm. ABDOMEN: Soft and nontender. SKIN/EXTREMITIES: No edema, clubbing, or cyanosis. ASSESSMENT: 1. Chronic obstructive pulmonary disease with exacerbation, improving. 2. Deconditioning, slowly improving. 3. Chronic fibromyalgia, stable. 4. Chronic irritable bowel, stable. PLAN: Continue PT and OT. Continue prehospitalization medications for fibromyalgia and irritable bowel. Continue prehospitalization medications for COPD. Job ID: [id number]
--- NOTE | 2020-02-22 18:04 | PRG ---
DATE OF SERVICE: 02/21/2020 SUBJECTIVE: The patient feels well with no complaints. She did have an episode of chest pain this morning. She was evaluated with a chest x-ray showing stable COPD, old scar from right upper lobe cancer, and emphysema. EKG only showed sinus rhythm. The patient feels better now as mentioned above. OBJECTIVE: VITAL SIGNS: Temperature is 96.2, pulse 73, respirations 18, and O2 sats 98% on 2 L. LUNGS: Decreased breath sounds. No rales or rhonchi. CARDIAC: Regular rhythm. BACK: Palpable tenderness in the back. NEUROLOGIC: No focal findings. ASSESSMENT: 1. Stable fibromyalgia, degenerative disk disease of the back. 2. Improving deconditioning. 3. Stable irritable bowel. PLAN: 1. Discussed discharge planning with the patient and therapy. 2. Continue PT/OT. 3. Continue home medications. Job ID: [id number]
[2020-02-22] MEDS: Famotidine 20 MG TAB PO SCH (20:36)
[2020-02-22] MEDS: Atorvastatin Calcium 20 MG TAB PO SCH (20:37)
[2020-02-22] MEDS: Gabapentin 300 MG CAP PO SCH (20:38)
[2020-02-23] MEDS: Albuterol Sulfate 2.5 mg/3 ml Neb NEB SCH ×6 (01:57→23:11)
[2020-02-23] MEDS: Ipratropium Bromide 2.5 ml Neb NEB SCH ×4 (05:30→23:11)
[2020-02-23] MEDS: Budesonide 0.5 MG/2 ML NEB NEB SCH ×2 (05:32→18:04)
[2020-02-23] MEDS: Enoxaparin Sodium 40 MG/0.4 ML SYRINGE SC SCH (08:25)
[2020-02-23] MEDS: Citalopram 10 MG TAB PO SCH (08:25)
[2020-02-23] MEDS: Fluticasone Propionate Nasal Spray 16 gm Bottle NASAL SCH (08:25)
[2020-02-23] MEDS: Gabapentin 100 MG CAP PO SCH ×2 (08:25→15:31)
[2020-02-23] MEDS: predniSONE 20 MG TAB PO SCH (08:25)
[2020-02-23] MEDS: Acetaminophen 325 MG TAB PO PRN ×3 (08:26→20:37)
[2020-02-23] MEDS: guaiFENesin ER 600 MG TAB PO SCH ×2 (08:26→20:39)
[2020-02-23] MEDS: Saccharomyces boulardii 250 MG CAP PO SCH (08:26)
[2020-02-23] MEDS: Metoprolol Tartrate 25 MG TAB PO SCH ×2 (08:26→20:38)
[2020-02-23] MEDS: Dicyclomine 20 MG TAB PO SCH ×2 (08:27→20:39)
[2020-02-23] MEDS: ALPRAZolam 0.25 MG TAB PO SCH ×3 (08:27→20:38)
[2020-02-23] MEDS: Aspirin Chewable 81 MG TAB PO SCH (08:27)
[2020-02-23] MEDS: Simethicone Chewable 80 MG TAB PO SCH ×3 (08:27→20:39)
--- NOTE | 2020-02-23 13:03 | PRG ---
DATE OF SERVICE: 02/22/2020 SUBJECTIVE: The patient is up, moving around with decreased dyspnea, still complaining of significant pain in her back with no relief with muscle relaxants, and feels this is fibromyalgia. OBJECTIVE: VITAL SIGNS: Temperature is 97.8, O2 sats 98% on 2 L, blood pressure 125/58. LUNGS: Clear with decreased breath sounds. CARDIAC: Regular rhythm. ABDOMEN: Soft. Nontender. SKIN/EXTREMITIES: No edema, clubbing, or cyanosis. ASSESSMENT: 1. Chronic obstructive pulmonary disease with exacerbation, resolving. 2. Fibromyalgia, causing significant symptomatology. 3. Deconditioning, improving slowly, hindered by the fibromyalgia. 4. Anxiety and depression, stable. 5. Irritable bowel, stable. PLAN: Continue PT/OT. Continue home medications. Stressed the patient to continue to work with therapy. Job ID: [id number]
--- NOTE | 2020-02-23 13:04 | PRG ---
DATE OF SERVICE: 02/23/2020 SUBJECTIVE: The patient is walking in the [place] with therapist, walking well with minimal dyspnea, states she is still having significant pain to further touch in her upper back. OBJECTIVE: VITAL SIGNS: Temperature is 97.3, pulse 89, respirations 18, O2 saturation 98% on 2 L, blood pressure 105/59. LUNGS: Clear. Decreased breath sounds. CARDIAC: Regular rhythm. ABDOMEN: Soft and nontender. SKIN/EXTREMITIES: No edema, clubbing, or cyanosis. ASSESSMENT: 1. Resolving chronic obstructive pulmonary disease exacerbation. 2. Stable fibromyalgia with increased symptoms now. 3. Irritable bowel, stable. 4. Deconditioning, improving slowly. PLAN: Continue PT/OT. Continue home medications. Discussed discharge planning. Job ID: [id number]
[2020-02-23] MEDS: Atorvastatin Calcium 20 MG TAB PO SCH (20:37)
[2020-02-23] MEDS: Gabapentin 300 MG CAP PO SCH (20:39)
[2020-02-23] MEDS: Famotidine 20 MG TAB PO SCH (20:39)
[2020-02-24] MEDS: Albuterol Sulfate 2.5 mg/3 ml Neb NEB SCH ×7 (02:44→23:12)
[2020-02-24] MEDS: Ipratropium Bromide 2.5 ml Neb NEB SCH ×4 (05:13→23:12)
[2020-02-24] MEDS: Budesonide 0.5 MG/2 ML NEB NEB SCH ×2 (05:14→18:49)
[2020-02-24] MEDS: Fluticasone Propionate Nasal Spray 16 gm Bottle NASAL SCH (09:15)
[2020-02-24] MEDS: Saccharomyces boulardii 250 MG CAP PO SCH (09:16)
[2020-02-24] MEDS: Metoprolol Tartrate 25 MG TAB PO SCH ×2 (09:16→20:42)
[2020-02-24] MEDS: Acetaminophen 325 MG TAB PO PRN ×3 (09:16→20:41)
[2020-02-24] MEDS: guaiFENesin ER 600 MG TAB PO SCH ×2 (09:16→20:43)
[2020-02-24] MEDS: Enoxaparin Sodium 40 MG/0.4 ML SYRINGE SC SCH (09:16)
[2020-02-24] MEDS: Aspirin Chewable 81 MG TAB PO SCH (09:16)
[2020-02-24] MEDS: Citalopram 10 MG TAB PO SCH (09:17)
[2020-02-24] MEDS: Simethicone Chewable 80 MG TAB PO SCH ×3 (09:17→20:42)
[2020-02-24] MEDS: ALPRAZolam 0.25 MG TAB PO SCH ×3 (09:17→20:42)
[2020-02-24] MEDS: Dicyclomine 20 MG TAB PO SCH ×2 (09:17→20:42)
[2020-02-24] MEDS: Gabapentin 100 MG CAP PO SCH ×2 (09:17→14:46)
[2020-02-24] MEDS: predniSONE 20 MG TAB PO SCH (09:17)
[2020-02-24] MEDS: Atorvastatin Calcium 20 MG TAB PO SCH (20:42)
[2020-02-24] MEDS: Famotidine 20 MG TAB PO SCH (20:42)
[2020-02-24] MEDS: Gabapentin 300 MG CAP PO SCH (20:43)
[2020-02-25] MEDS: Albuterol Sulfate 2.5 mg/3 ml Neb NEB SCH ×6 (03:28→23:49)
[2020-02-25] MEDS: Ipratropium Bromide 2.5 ml Neb NEB SCH ×4 (05:32→23:49)
[2020-02-25] MEDS: Budesonide 0.5 MG/2 ML NEB NEB SCH ×2 (05:32→18:01)
[2020-02-25] MEDS: Acetaminophen 325 MG TAB PO PRN ×3 (06:54→20:19)
[2020-02-25] MEDS: Enoxaparin Sodium 40 MG/0.4 ML SYRINGE SC SCH (08:55)
[2020-02-25] MEDS: Fluticasone Propionate Nasal Spray 16 gm Bottle NASAL SCH (08:55)
[2020-02-25] MEDS: Saccharomyces boulardii 250 MG CAP PO SCH (08:56)
[2020-02-25] MEDS: ALPRAZolam 0.25 MG TAB PO SCH ×3 (08:56→20:20)
[2020-02-25] MEDS: guaiFENesin ER 600 MG TAB PO SCH ×2 (08:56→20:20)
[2020-02-25] MEDS: Citalopram 10 MG TAB PO SCH (08:56)
[2020-02-25] MEDS: Gabapentin 100 MG CAP PO SCH ×2 (08:56→14:51)
[2020-02-25] MEDS: Aspirin Chewable 81 MG TAB PO SCH (08:56)
[2020-02-25] MEDS: predniSONE 20 MG TAB PO SCH (08:57)
[2020-02-25] MEDS: Dicyclomine 20 MG TAB PO SCH ×2 (08:57→20:19)
[2020-02-25] MEDS: Metoprolol Tartrate 25 MG TAB PO SCH ×2 (08:57→20:20)
[2020-02-25] MEDS: tiZANidine HCl 4 MG TAB PO PRN ×2 (08:57→20:19)
[2020-02-25] MEDS: Simethicone Chewable 80 MG TAB PO SCH ×3 (09:46→20:20)
--- NOTE | 2020-02-25 16:21 | PRG ---
DATE OF SERVICE: 02/25/2020 SUBJECTIVE: The patient feels acute onset of severe right upper back, right-sided chest pain which is a pleuritic, sharp pain. This has been going for the last 3 hours. She has a long history of fibromyalgia, muscle spasms, states it is different. She has not been having any cough, fever, chills. OBJECTIVE: VITAL SIGNS: Shows her temperature is 97, pulse 76, respirations 18, O2 sats 100% on 2 L, blood pressure 125/58. LUNGS: Show decreased breath sounds. No rales or rhonchi. CARDIAC: Showed regular rhythm. No gallops or murmurs. ABDOMEN: Soft with tenderness to palpation of the right submammary and right upper back with feather touch tenderness. ASSESSMENT: Acute right-sided chest pain, most likely neuropathic pain, but as this is much more severe than previously, has pleuritic component. She does have a history of chronic obstructive pulmonary disease and cancer of the lung. We will get CT of the chest. She refuses contrast, it will be done without contrast, although she knows this will not be a definitive a test. Job ID: [id number]
--- NOTE | 2020-02-25 16:54 | CT ---
CT CHEST WITHOUT CONTRAST: History: Pleuritic chest pain. History of lung cancer. Comparison: CT chest, 10-16-19; chest radiograph 4 days prior FINDINGS: Right apical peripheral parenchymal and pleural scarring is similar, as well as the 5 mm pleural base d nodule in the superior segment right upper lobe. There is resolution of the previously described 7 mm nodule superior segment right lower lobe. No new suspicious pulmonary nodule. No pneumothorax. No effusion. No consolidation. Sternum and manubrium are intact. Thoracic spine is intact. No acute displaced rib fracture. No suspicious osteolytic or osteoblastic lesions. Mild ectasia mid thoracic aorta measuring up to 2.9 cm. Upper abdomen is unremarkable. There is bilateral adrenal gland fullness, unchanged. IMPRESSION: 1. No acute new process in the chest. 2. Interval resolution of the 7 mm subpleural nodule right lower lobe superior segment. 3. No suspicious pulmonary nodule. 4. No displaced rib fracture or other suspicious osseous abnormality of the ribs. POS: HOME
[2020-02-25] MEDS: Famotidine 20 MG TAB PO SCH (20:19)
[2020-02-25] MEDS: Gabapentin 300 MG CAP PO SCH (20:19)
[2020-02-25] MEDS: Atorvastatin Calcium 20 MG TAB PO SCH (20:20)
[2020-02-26] MEDS: Albuterol Sulfate 2.5 mg/3 ml Neb NEB SCH ×7 (03:32→23:20)
[2020-02-26] MEDS: Ipratropium Bromide 2.5 ml Neb NEB SCH ×5 (05:08→23:18)
[2020-02-26] MEDS: Budesonide 0.5 MG/2 ML NEB NEB SCH ×2 (05:09→17:45)
[2020-02-26] MEDS: Saccharomyces boulardii 250 MG CAP PO SCH (08:13)
[2020-02-26] MEDS: Metoprolol Tartrate 25 MG TAB PO SCH ×2 (08:14→20:58)
[2020-02-26] MEDS: predniSONE 20 MG TAB PO SCH (08:15)
[2020-02-26] MEDS: Citalopram 10 MG TAB PO SCH (08:15)
[2020-02-26] MEDS: Aspirin Chewable 81 MG TAB PO SCH (08:15)
[2020-02-26] MEDS: Gabapentin 100 MG CAP PO SCH ×2 (08:16→14:08)
[2020-02-26] MEDS: Acetaminophen 325 MG TAB PO PRN ×3 (08:16→20:59)
[2020-02-26] MEDS: Dicyclomine 20 MG TAB PO SCH ×2 (08:16→20:59)
[2020-02-26] MEDS: ALPRAZolam 0.25 MG TAB PO SCH ×3 (08:16→20:59)
[2020-02-26] MEDS: Simethicone Chewable 80 MG TAB PO SCH ×3 (08:16→20:59)
[2020-02-26] MEDS: Enoxaparin Sodium 40 MG/0.4 ML SYRINGE SC SCH (08:17)
[2020-02-26] MEDS: guaiFENesin ER 600 MG TAB PO SCH ×2 (08:17→20:59)
[2020-02-26] MEDS: Fluticasone Propionate Nasal Spray 16 gm Bottle NASAL SCH (08:18)
[2020-02-26] MEDS: tiZANidine HCl 4 MG TAB PO PRN ×2 (15:27→20:59)
[2020-02-26] MEDS: Gabapentin 300 MG CAP PO SCH (20:59)
[2020-02-26] MEDS: Famotidine 20 MG TAB PO SCH (20:59)
[2020-02-26] MEDS: Atorvastatin Calcium 20 MG TAB PO SCH (21:00)
[2020-02-27] MEDS: Albuterol Sulfate 2.5 mg/3 ml Neb NEB SCH ×6 (02:47→23:19)
[2020-02-27] MEDS: Acetaminophen 325 MG TAB PO PRN ×2 (02:58→08:45)
[2020-02-27] MEDS: ALPRAZolam 0.25 MG TAB PO PRN (02:59)
[2020-02-27] MEDS: Budesonide 0.5 MG/2 ML NEB NEB SCH ×2 (05:17→18:04)
[2020-02-27] MEDS: Ipratropium Bromide 2.5 ml Neb NEB SCH ×4 (05:19→23:20)
[2020-02-27] MEDS: predniSONE 20 MG TAB PO SCH (08:46)
[2020-02-27] MEDS: Citalopram 10 MG TAB PO SCH (08:47)
[2020-02-27] MEDS: Gabapentin 100 MG CAP PO SCH ×2 (08:47→15:13)
[2020-02-27] MEDS: ALPRAZolam 0.25 MG TAB PO SCH ×3 (08:47→20:01)
[2020-02-27] MEDS: Dicyclomine 20 MG TAB PO SCH ×2 (08:48→20:01)
[2020-02-27] MEDS: Saccharomyces boulardii 250 MG CAP PO SCH (08:48)
[2020-02-27] MEDS: guaiFENesin ER 600 MG TAB PO SCH ×2 (08:48→20:02)
[2020-02-27] MEDS: Aspirin Chewable 81 MG TAB PO SCH (08:48)
[2020-02-27] MEDS: Metoprolol Tartrate 25 MG TAB PO SCH ×2 (08:49→20:01)
[2020-02-27] MEDS: Simethicone Chewable 80 MG TAB PO SCH ×3 (08:50→20:02)
[2020-02-27] MEDS: Fluticasone Propionate Nasal Spray 16 gm Bottle NASAL SCH (08:50)
[2020-02-27] MEDS: Enoxaparin Sodium 40 MG/0.4 ML SYRINGE SC SCH (08:54)
[2020-02-27] MEDS: tiZANidine HCl 4 MG TAB PO PRN (15:21)
[2020-02-27] MEDS: Atorvastatin Calcium 20 MG TAB PO SCH (20:01)
[2020-02-27] MEDS: Gabapentin 300 MG CAP PO SCH (20:01)
[2020-02-27] MEDS: Famotidine 20 MG TAB PO SCH (20:02)
[2020-02-28] MEDS: tiZANidine HCl 4 MG TAB PO PRN ×2 (00:02→13:30)
[2020-02-28] MEDS: Acetaminophen 325 MG TAB PO PRN ×3 (03:23→13:30)
[2020-02-28] MEDS: ALPRAZolam 0.25 MG TAB PO PRN (03:23)
[2020-02-28] MEDS: Albuterol Sulfate 2.5 mg/3 ml Neb NEB SCH ×6 (03:25→23:19)
[2020-02-28] MEDS: Budesonide 0.5 MG/2 ML NEB NEB SCH ×2 (04:57→18:19)
[2020-02-28] MEDS: Ipratropium Bromide 2.5 ml Neb NEB SCH ×4 (04:57→23:20)
[2020-02-28] MEDS: guaiFENesin ER 600 MG TAB PO SCH ×2 (08:10→20:16)
[2020-02-28] MEDS: Simethicone Chewable 80 MG TAB PO SCH ×3 (08:10→20:16)
[2020-02-28] MEDS: Gabapentin 100 MG CAP PO SCH ×2 (08:11→15:06)
[2020-02-28] MEDS: Citalopram 10 MG TAB PO SCH (08:11)
[2020-02-28] MEDS: predniSONE 20 MG TAB PO SCH (08:11)
[2020-02-28] MEDS: Saccharomyces boulardii 250 MG CAP PO SCH (08:11)
[2020-02-28] MEDS: Metoprolol Tartrate 25 MG TAB PO SCH ×2 (08:12→20:16)
[2020-02-28] MEDS: Dicyclomine 20 MG TAB PO SCH ×2 (08:12→20:15)
[2020-02-28] MEDS: Aspirin Chewable 81 MG TAB PO SCH (08:12)
[2020-02-28] MEDS: Fluticasone Propionate Nasal Spray 16 gm Bottle NASAL SCH (08:13)
[2020-02-28] MEDS: ALPRAZolam 0.25 MG TAB PO SCH ×3 (08:13→20:15)
[2020-02-28] MEDS: Enoxaparin Sodium 40 MG/0.4 ML SYRINGE SC SCH (08:13)
[2020-02-28] MEDS: Atorvastatin Calcium 20 MG TAB PO SCH (20:15)
[2020-02-28] MEDS: Famotidine 20 MG TAB PO SCH (20:15)
[2020-02-28] MEDS: Gabapentin 300 MG CAP PO SCH (20:16)
[2020-02-29] MEDS: Albuterol Sulfate 2.5 mg/3 ml Neb NEB SCH ×3 (02:08→10:51)
[2020-02-29] MEDS: Acetaminophen 325 MG TAB PO PRN ×2 (02:11→06:46)
[2020-02-29] MEDS: tiZANidine HCl 4 MG TAB PO PRN (02:11)
[2020-02-29] MEDS: Ipratropium Bromide 2.5 ml Neb NEB SCH (05:50)
[2020-02-29] MEDS: Budesonide 0.5 MG/2 ML NEB NEB SCH (06:18)
--- NOTE | 2020-02-29 06:35 | PRG ---
DATE OF SERVICE: 02/26/2020 SUBJECTIVE: The patient is still having some right upper back pain and right-sided chest pain and evaluated with negative CT of the chest showing no masses, only scarring. Negative EKG and cardiac enzymes. She states that she is cooperative with therapy, still having the pain, does improve some with muscle relaxants. OBJECTIVE: VITAL SIGNS: Temperature 97.1, pulse 93, respirations 20, O2 sats 97% on 2 L, and blood pressure 105/55. ASSESSMENT: 1. Right-sided chest pain, most likely due to muscle spasms, fibromyalgia, and degenerative disk disease. No evidence of increased intrathoracic disease. 2. Chronic obstructive pulmonary disease, recent exacerbation, stable. 3. History of cancer of lung, status post radiation, with no evidence of recurrence. 4. Irritable bowel, stable. 5. Anxiety, stable. PLAN: 1. Continue PT and OT. 2. Continue muscle relaxants and gabapentin. 3. Discussed fibromyalgia with the patient and with the family. Job ID: [id number]
[2020-02-29 07:40] LABS: #Eosinphils 0.1 thou/uL (0.0-0.7); #Monocytes 0.4 thou/uL (0.11-0.59); #Neutrophils 3.4 thou/uL (1.40-6.50); %Basophils 0.7 % (0.0-1.0); %Eosinophils 2.3 % (0.0-10.0); %Lymphocytes 20.1 % (21.0-51.0); %Monocytes 8.5 % (0.0-10.0); %Neutrophils 68.4 % (42.0-75.0); Hemoglobin 10.3 g/dL (12.0-16.0); Mean Corpuscular HGB CONC 32.6 g/dL (32.0-36.0); Mean Corpuscular Hemoglobin 32.5 pg (27.0-31.0); Mean Corpuscular Volume 99.8 fL (78.0-98.0); Mean Platelet Volume 5.7 fL (7.4-10.4); Platelet Count 239 thou/uL (130-400); RBC Distribution Width 12.7 % (11.5-14.5); Red Blood Cell (RBC) Count 3.18 mill/uL (4.20-5.40); White Blood Cell (WBC) Count 4.9 thou/uL (4.8-10.8)
[2020-02-29 07:48] LABS: ALT (SGPT) 41 U/L (8-55); AST (SGOT) 16 U/L (5-34); Albumin 3.6 g/dL (3.4-4.8); Alkaline Phosphatase 96 U/L (40-110); Anion Gap 12 mmol/L (10-20); BUN (Urea Nitrogen) 8 mg/dL (9.8-20.1); Bilirubin, Total 0.2 mg/dL (0.2-1.2); Calc. Creatinine Clearance 87 mL/min (70-130); Calcium 8.7 mg/dL (7.8-10.44); Carbon Dioxide 30 mmol/L (23-31); Chloride 101 mmol/L (98-107); Estimated GFR-MDRD 84; Globulin 2.3 g/dL (2.4-3.5); Glucose 90 mg/dL (80-115); Potassium 3.9 mmol/L (3.5-5.1); Protein, Total 5.9 g/dL (6.0-8.3); Sodium 139 mmol/L (136-145)
--- NOTE | 2020-02-29 08:33 | PRG ---
DATE OF SERVICE: 02/28/2020 SUBJECTIVE: The patient feels well, lying in bed with persistent right upper back pain, but appears to be stabilizing, and is preparing for discharge in the next several days. OBJECTIVE: VITAL SIGNS: O2 saturations 100% on 2 L, pulse 83, blood pressure 110/83. LUNGS: Show decreased breath sounds. No rales or rhonchi. CARDIAC: Showed regular rhythm. No gallops or murmurs. ABDOMEN: Soft, minimally tender. SKIN/EXTREMITIES: Showed tenderness to palpation of right upper back, thoracic and lumbar spine, paravertebral area. ASSESSMENT: 1. Fibromyalgia, slowly improved and stable. 2. Chronic obstructive pulmonary disease with exacerbation, resolved. 3. Cancer of lung, no evidence of recurrence. 4. Irritable bowel. 5. Anxiety and depression. PLAN: 1. The patient is agreeable to discharge planning in the next several days and family will make arrangements. 2. Discussed fibromyalgia and clinical trial with the patient and agreed that she could undergo this trial. 3. Continue home medications. Job ID: [id number]
--- NOTE | 2020-02-29 08:43 | PRG ---
DATE OF SERVICE: 02/27/2020 SUBJECTIVE: The patient feels well except for the right-sided chest pain, has been cooperating with therapy and is prepared for discharge planning and going to discharge planning conference today. OBJECTIVE: VITAL SIGNS: Temperature is 96.5, pulse 82, respirations 20, O2 saturations 97% on room air, blood pressure 152/77. LUNGS: Clear with decreased breath sounds. CARDIAC: Showed regular rhythm. No gallops or murmurs. ABDOMEN: Soft, minimally tender. No rebound. SKIN/EXTREMITIES: Showed tenderness to feather touch palpation in right upper back. ASSESSMENT: 1. Fibromyalgia, appears to be causing increasing symptoms. 2. Degenerative disk disease of lumbar spine, possibly contributing also to her pain. 3. Chronic obstructive pulmonary disease with exacerbation, resolving. 4. Cancer of the lung with no evidence of recurrence at this time. PLAN: 1. Continue PT, OT. 2. Continue chronic treatment for fibromyalgia. 3. Discuss discharge planning with PT and family. Job ID: [id number]
[2020-02-29] MEDS: Aspirin Chewable 81 MG TAB PO SCH (08:45)
[2020-02-29] MEDS: Simethicone Chewable 80 MG TAB PO SCH (08:45)
[2020-02-29] MEDS: Gabapentin 100 MG CAP PO SCH (08:45)
[2020-02-29] MEDS: ALPRAZolam 0.25 MG TAB PO SCH (08:45)
[2020-02-29] MEDS: predniSONE 20 MG TAB PO SCH (08:45)
[2020-02-29] MEDS: Saccharomyces boulardii 250 MG CAP PO SCH (08:45)
[2020-02-29] MEDS: guaiFENesin ER 600 MG TAB PO SCH (08:45)
[2020-02-29] MEDS: Citalopram 10 MG TAB PO SCH (08:45)
[2020-02-29] MEDS: Fluticasone Propionate Nasal Spray 16 gm Bottle NASAL SCH (08:46)
[2020-02-29] MEDS: Metoprolol Tartrate 25 MG TAB PO SCH (08:46)
[2020-02-29] MEDS: Enoxaparin Sodium 40 MG/0.4 ML SYRINGE SC SCH (08:46)
[2020-02-29] MEDS: Dicyclomine 20 MG TAB PO SCH (08:46)
[2020-02-29 09:58] VITALS: BP 116/56; TEMP 98
--- NOTE | 2020-02-29 14:12 | DIS ---
DATE OF ADMISSION: 02/07/2020 DATE OF DISCHARGE: 02/29/2020 Date of admission to the skilled unit, February 07, 2020. Date of discharge to home, February 29, 2020. FINAL DIAGNOSES: 1. Chronic obstructive pulmonary disease with exacerbation, resolved. 2. Severe deconditioning, improved. 3. Fibromyalgia, stable. 4. Degenerative disk disease of lumbar spine, stable with recurrent spasms. 5. Lung cancer, status post radiation. No evidence of recurrence. 6. Hypertension, controlled to goal. 7. Anxiety, stable. HOSPITAL COURSE: The patient is a very pleasant 69-year-old white female with a long history of cancer of the lung, status post radiation, superimposed on severe underlying COPD, who has had a recent exacerbation, responded to IV steroids and aggressive nebulizer treatment, but became severely weakened and therefore was admitted to [facility] for continued PT and OT. She slowly but surely improved with some setbacks secondary to her chronic degenerative disk disease and chronic lower back pain and fibromyalgia, but has persevered with her treatment and has been ambulating two laps around the nurses station and up stairs and felt to be stable to be discharged home. She is on chronic oxygen use and will continue on this. Her vital signs on discharge showed her to have blood pressure of 109/57, O2 saturation is 99% on 2 L, respirations 20, pulse is 80. White count 4900, hematocrit 31, hemoglobin 10. Sodium 139, potassium 3.9, chloride 101, bicarb 30, BUN 8, creatinine 0.69. Total protein 5.9, globulin 2.3. The patient will be discharged home on atorvastatin 20 mg nightly, handheld nebulizer with Pulmicort 0.25 twice daily and with albuterol 1.25 mg routinely. She also will be on citalopram 10 mg daily, dicyclomine 20 mg twice daily, famotidine 20 mg nightly, fluticasone one spray daily, gabapentin 200 mg at 9 o'clock and at 3 o'clock and 300 mg at night, Atrovent 2.5 mL every 6 hours, metoprolol 12.5 mg twice daily, Zofran as needed, and one more week of prednisone 10 mg daily. She will also be continued on Florastor 250 daily, Mylicon-80 three times daily, tizanidine for muscle spasms 4 mg twice daily, and Anoro Ellipta inhaler as needed. She will follow up with home health care. She will be on chronic O2, and she will follow up with Pulmonary also. She will be seen by myself in 2 weeks for transition of care. Job ID: [id number]
== END 2020-02-29 11:50 | disposition home health service (06) | DRG 948 ==
LOC: NAV ACUTE 19:47
PROVIDERS: ADMIT Internal Medicine; ATTEND Internal Medicine
DX: R53.81 Other malaise (principal); C34.90 Malignant neoplasm of unspecified part of unspecified bronchus or lung; J44.1 Chronic obstructive pulmonary disease with (acute) exacerbation; N39.0 Urinary tract infection, site not specified; I10 Essential (primary) hypertension; E78.5 Hyperlipidemia, unspecified; M79.7 Fibromyalgia; F41.9 Anxiety disorder, unspecified; I25.10 Atherosclerotic heart disease of native coronary artery without angina pectoris; G62.9 Polyneuropathy, unspecified; K58.9 Irritable bowel syndrome, unspecified; R09.02 Hypoxemia; M51.36 Other intervertebral disc degeneration, lumbar region; F32.9 Major depressive disorder, single episode, unspecified; G89.29 Other chronic pain; R07.81 Pleurodynia; M62.830 Muscle spasm of back; B96.20 Unspecified Escherichia coli [E. coli] as the cause of diseases classified elsewhere; Z90.49 Acquired absence of other specified parts of digestive tract; Z90.710 Acquired absence of both cervix and uterus; Z87.891 Personal history of nicotine dependence; Z88.0 Allergy status to penicillin; Z88.1 Allergy status to other antibiotic agents; Z88.2 Allergy status to sulfonamides; Z88.8 Allergy status to other drugs, medicaments and biological substances; Z79.51 Long term (current) use of inhaled steroids; Z92.3 Personal history of irradiation; I25.2 Old myocardial infarction; Z98.61 Coronary angioplasty status
CPT/HCPCS: 36415; 36416; 71045; 71250; 80053; 85025; 87077; 87086; 87186; J1650; J7512; J7611; J7626

== ENCOUNTER 2020-03-12 14:06 | Inpatient (IN) | payer MEDICARE, BC ==
[2020-03-12] MEDS: ALPRAZolam 0.25 MG TAB PO PRN (18:35)
[2020-03-12] MEDS: Budesonide 0.5 MG/2 ML NEB NEB SCH (18:38)
[2020-03-12] MEDS: Albuterol Sulfate 2.5 mg/3 ml Neb NEB SCH ×2 (18:38→23:46)
[2020-03-12] MEDS: Ipratropium Bromide 2.5 ml Neb NEB SCH (18:39)
[2020-03-12] MEDS: guaiFENesin ER 600 MG TAB PO SCH (21:02)
[2020-03-12] MEDS: Metoprolol Tartrate 25 MG TAB PO SCH (21:02)
[2020-03-12] MEDS: Gabapentin 300 MG CAP PO SCH (21:02)
[2020-03-12] MEDS: Famotidine 20 MG TAB PO SCH (21:02)
[2020-03-12] MEDS: Acetaminophen 325 MG TAB PO PRN (21:02)
[2020-03-12] MEDS: Simethicone Chewable 80 MG TAB PO SCH (21:03)
[2020-03-12] MEDS: Dicyclomine 20 MG TAB PO SCH (21:03)
[2020-03-13] MEDS ORDERED: Ipratropium Bromide 2.5 ml Neb ONE (00:17)
[2020-03-13] MEDS: Ipratropium Bromide 2.5 ml Neb NEB SCH ×5 (00:26→23:39)
[2020-03-13] MEDS: Albuterol Sulfate 2.5 mg/3 ml Neb NEB SCH ×6 (02:24→22:12)
[2020-03-13] MEDS: Budesonide 0.5 MG/2 ML NEB NEB SCH ×2 (05:10→18:35)
[2020-03-13 05:34] LABS: Bilirubin Negative (Negative); Blood, Urine Trace (Negative); Clarity Clear (Clear); Glucose, Urine (Dipstick) Negative (Negative); Leukocyte Negative (Negative); Nitrite Negative (Negative); Protein, Urine (Dipstick) Negative (Neg-Trace); Urobilinogen 0.2 mg/dL (Less than 2)
[2020-03-13 05:39] LABS: #Basophils 0.1 thou/uL (0.0-0.2); #Monocytes 0.9 thou/uL (0.11-0.59); #Neutrophils 6.2 thou/uL (1.40-6.50); %Basophils 0.9 % (0.0-1.0); %Eosinophils 0.4 % (0.0-10.0); %Lymphocytes 11.6 % (21.0-51.0); %Monocytes 10.9 % (0.0-10.0); %Neutrophils 76.1 % (42.0-75.0); Hemoglobin 11.4 g/dL (12.0-16.0); Mean Corpuscular HGB CONC 32.5 g/dL (32.0-36.0); Mean Corpuscular Hemoglobin 32.8 pg (27.0-31.0); Mean Platelet Volume 6.3 fL (7.4-10.4); Platelet Count 379 thou/uL (130-400); RBC Distribution Width 12.6 % (11.5-14.5); Red Blood Cell (RBC) Count 3.48 mill/uL (4.20-5.40); White Blood Cell (WBC) Count 8.1 thou/uL (4.8-10.8)
[2020-03-13 05:41] LABS: Bacteria/HPF None Seen HPF (None Seen); RBC/HPF None Seen HPF (0-3); Squamous Epithelial None Seen HPF (0-3); WBC/HPF None Seen HPF (0-3)
[2020-03-13 05:45] LABS: ALT (SGPT) 17 U/L (8-55); AST (SGOT) 12 U/L (5-34); Albumin 3.9 g/dL (3.4-4.8); Alkaline Phosphatase 98 U/L (40-110); Anion Gap 16 mmol/L (10-20); BUN (Urea Nitrogen) 9 mg/dL (9.8-20.1); Bilirubin, Total 0.3 mg/dL (0.2-1.2); Calc. Creatinine Clearance 74 mL/min (70-130); Calcium 9.5 mg/dL (7.8-10.44); Carbon Dioxide 28 mmol/L (23-31); Chloride 99 mmol/L (98-107); Estimated GFR-MDRD 75; Globulin 2.7 g/dL (2.4-3.5); Glucose 115 mg/dL (80-115); Potassium 4.1 mmol/L (3.5-5.1); Protein, Total 6.6 g/dL (6.0-8.3); Sodium 139 mmol/L (136-145)
[2020-03-13] MEDS: ALPRAZolam 0.25 MG TAB PO PRN (09:02)
[2020-03-13] MEDS: Azithromycin 250 MG TAB PO SCH (09:03)
[2020-03-13] MEDS: Gabapentin 100 MG CAP PO SCH ×2 (09:03→14:45)
[2020-03-13] MEDS: Citalopram 10 MG TAB PO SCH (09:03)
[2020-03-13] MEDS: guaiFENesin ER 600 MG TAB PO SCH ×2 (09:03→21:09)
[2020-03-13] MEDS: Simethicone Chewable 80 MG TAB PO SCH ×3 (09:03→21:09)
[2020-03-13] MEDS: predniSONE 20 MG TAB PO SCH (09:03)
[2020-03-13] MEDS: Dicyclomine 20 MG TAB PO SCH ×2 (09:03→21:09)
[2020-03-13] MEDS: Metoprolol Tartrate 25 MG TAB PO SCH ×2 (09:03→21:09)
[2020-03-13] MEDS: Fluticasone Propionate Nasal Spray 16 gm Bottle NASAL SCH (09:04)
--- NOTE | 2020-03-13 10:16 | PRG ---
DATE OF SERVICE: 03/13/2020 SUBJECTIVE: The patient feels well at rest, but has pain on any movement and short of breath on any movement, even going to the bedside commode. She has had no fever, chills. States she did not sleep well last night however. OBJECTIVE: VITAL SIGNS: Show temperature 98.3, pulse 114, respirations 22, O2 saturations 93% on 3 L, blood pressure 143/60. LUNGS: Show decreased breath sounds. CARDIAC: Showed regular rhythm. Rapid regular. ABDOMEN: Soft, nontender. SKIN/EXTREMITIES: Show tenderness to palpation of the right side of the chest wrapping around to the back. NEUROLOGIC: Shows no focal findings. LABORATORY DATA: Shows white count 8100, hematocrit 35, hemoglobin 11. Sodium 139, potassium 4.1, chloride 99, bicarb 28, BUN 9, creatinine 0.76, glucose 115, calcium 9.5, total bilirubin 0.3, AST 12, ALT 17, alkaline phosphatase 98. Serum total protein 6.6, albumin 3.9. ASSESSMENT: 1. Severe chronic obstructive pulmonary disease with recent exacerbation. 2. Cancer of the lung, status post radiation. 3. Asymptomatic coronary artery disease. 4. Irritable bowel. 5. Fibromyalgia with current back pain, on gabapentin. 6. Multiple drug allergies. PLAN: Continue PT/OT. Stressed the patient need to attempt to at least do ADLs. Discuss with family need for 24 hours assistance at all times at home and probability of minimal improvement. Job ID: [id number]
--- NOTE | 2020-03-13 10:52 | HP ---
HISTORY OF PRESENT ILLNESS: The patient is a 69-year-old white female, well known to myself with a long history of severe COPD, who was recently admitted to [facility] on March 10, for an exacerbation after being in the [facility] for the preceding three weeks for similar exacerbation. Apparently, she was on her chronic 2 L O2, developed a mild productive cough of clear phlegm, became acutely short of breath soon after being discharged home. She states this may have been related to exposure to grass cuttings and pollen. She had not been using her Atrovent and Pulmicort inhaler as well as her DuoNeb's. She was admitted and aggressively treated with oral prednisone, azithromycin for possible exacerbations and slowly, but surely improved, although she has not returned the capability of doing ADLs. The patient has progressively deteriorated over the last several months to the point that she is only able to go to the bathroom without becoming severely dyspneic, is not able to change her clothes or do any housework or kitchen work and her is doing all of the work at home. I have discussed this with her family, who understands that she will need more intensive care when she is discharged home at this time. MEDICATIONS: At this time include, 1. Handheld nebulizer with albuterol q.4 hours routine. 2. Alprazolam 0.25 three times daily as needed. 3. Azithromycin 250 daily for 4 days. 4. Pulmicort nebulizer 0.25 twice daily. 5. Citalopram 10 daily. 6. Dicyclomine 20 twice daily. 7. Famotidine 20 nightly. 8. Gabapentin 300 at night and 200 at 9 o'clock and 1500 hours. 9. Metoprolol 12.5 twice daily. 10. Prednisone 40 daily. 11. Tizanidine 4 mg twice daily as needed for muscle spasm. PAST MEDICAL HISTORY: As mentioned above is positive for severe COPD, but also for myocardial infarction 20 years ago, status post angioplasty with no recurrence; hypertension; hyperlipidemia; cancer of the lung, status post radiation. Past medical history is also remarkable for fibromyalgia, irritable bowel syndrome, degenerative disk disease, multiple drug allergies. PAST SURGICAL HISTORY: Positive for cholecystectomy, hysterectomy, appendectomy. SOCIAL HISTORY: She has a greater than 30 pack-year history of smoking, but none in the past 5 years. She is a nondrug user. She lives with her in over 50 years. ALLERGIES: SHE IS ALLERGIC MENTIONED ABOVE TO MULTIPLE MEDICATIONS INCLUDING PENICILLIN, QUINOLONES, PREGABALIN, SERTRALINE, CHLORPROMAZINE, SULFA, ASPIRIN. REVIEW OF SYSTEMS: HEENT: She denies any headaches, dizziness, change in vision or hearing, hoarseness, or dysphagia. PULMONARY: She has a cough productive of minimal amount of white thin sputum. She has chest pain, particularly in the right side upon breathing and movement, which she states is due to a pulled muscle. CARDIOVASCULAR: She denies palpitations, orthopnea, paroxysmal nocturnal dyspnea, or edema. GASTROINTESTINAL: She denies nausea or vomiting. She does have abdominal pain and anorexia. She has had no constipation. GENITOURINARY: She denies dysuria or hematuria. MUSCULOSKELETAL: She is diffusely weak, but mainly is severely dyspneic on minimal exertion. PHYSICAL EXAMINATION: GENERAL: The patient is an elderly white female, lying in the bed with dyspnea on talking on minimal exertion. VITAL SIGNS: Showed to have temperature 97.4, pulse 97, respirations 20, O2 saturations 94% on 3 L, blood pressure 146/72. HEENT: Pupils are equal, round, and reactive to light and accommodation. Sclerae are anicteric. Conjunctivae pale. Oral mucous membranes well hydrated. NECK: Supple. There are no nodes or masses. JVP is not elevated. LUNGS: Show decreased breath sounds diffusely with no rales or rhonchi. CARDIAC: Shows regular rhythm. No gallops or murmurs. ABDOMEN: Soft, but diffusely tender. No masses or organomegaly. SKIN AND EXTREMITIES: Showed no edema, clubbing, or cyanosis. NEUROLOGICAL: Intact. ASSESSMENT: 1. Severe chronic obstructive pulmonary disease with recent exacerbation and respiratory failure with significant exercise intolerance. 2. Cancer of the lung, status post radiation with no evidence of recurrence. 3. Fibromyalgia, limiting therapy because of recurrent pain. 4. Irritable bowel with multiple allergies to medications. 5. History of coronary artery disease status post angioplasty with no evidence of recurrence. 6. Anxiety somewhat limiting the therapy also. PLAN: 1. Continue PT, OT. 2. Discussed with family her limited rehabilitative possibilities. 3. Finished course of Zithromax for COPD exacerbation. 4. Continue pre-hospitalization meds plus also prednisone 40 mg daily. Job ID: [id number]
[2020-03-13] MEDS: Famotidine 20 MG TAB PO SCH (21:09)
[2020-03-13] MEDS: Gabapentin 300 MG CAP PO SCH (21:09)
[2020-03-14] MEDS: Albuterol Sulfate 2.5 mg/3 ml Neb NEB SCH ×6 (03:24→22:32)
[2020-03-14] MEDS: Ipratropium Bromide 2.5 ml Neb NEB SCH ×4 (06:05→23:59)
[2020-03-14] MEDS: Budesonide 0.5 MG/2 ML NEB NEB SCH ×2 (06:46→17:24)
[2020-03-14] MEDS: Gabapentin 100 MG CAP PO SCH ×2 (08:25→15:36)
[2020-03-14] MEDS: predniSONE 20 MG TAB PO SCH (08:25)
[2020-03-14] MEDS: guaiFENesin ER 600 MG TAB PO SCH ×2 (08:25→21:11)
[2020-03-14] MEDS: Azithromycin 250 MG TAB PO SCH (08:25)
[2020-03-14] MEDS: Simethicone Chewable 80 MG TAB PO SCH ×3 (08:26→21:11)
[2020-03-14] MEDS: Fluticasone Propionate Nasal Spray 16 gm Bottle NASAL SCH ×2 (08:26→08:28)
[2020-03-14] MEDS: Dicyclomine 20 MG TAB PO SCH ×2 (08:26→21:12)
[2020-03-14] MEDS: Citalopram 10 MG TAB PO SCH (08:26)
[2020-03-14] MEDS: Metoprolol Tartrate 25 MG TAB PO SCH ×2 (08:26→21:12)
[2020-03-14] MEDS: Acetaminophen 325 MG TAB PO PRN (11:24)
[2020-03-14] MEDS: Famotidine 20 MG TAB PO SCH (21:11)
[2020-03-14] MEDS: Gabapentin 300 MG CAP PO SCH (21:11)
[2020-03-15] MEDS: Albuterol Sulfate 2.5 mg/3 ml Neb NEB SCH ×6 (02:36→23:09)
[2020-03-15] MEDS: Ipratropium Bromide 2.5 ml Neb NEB SCH ×4 (06:12→23:09)
[2020-03-15] MEDS: Budesonide 0.5 MG/2 ML NEB NEB SCH ×2 (06:12→18:39)
[2020-03-15] MEDS: Azithromycin 250 MG TAB PO SCH (08:41)
[2020-03-15] MEDS: guaiFENesin ER 600 MG TAB PO SCH ×2 (08:41→20:48)
[2020-03-15] MEDS: Fluticasone Propionate Nasal Spray 16 gm Bottle NASAL SCH (08:41)
[2020-03-15] MEDS: Simethicone Chewable 80 MG TAB PO SCH ×3 (08:41→20:48)
[2020-03-15] MEDS: Citalopram 10 MG TAB PO SCH (08:42)
[2020-03-15] MEDS: predniSONE 20 MG TAB PO SCH (08:42)
[2020-03-15] MEDS: Gabapentin 100 MG CAP PO SCH ×2 (08:42→15:04)
[2020-03-15] MEDS: Metoprolol Tartrate 25 MG TAB PO SCH ×2 (08:42→20:48)
[2020-03-15] MEDS: Dicyclomine 20 MG TAB PO SCH ×2 (09:07→20:48)
[2020-03-15] MEDS: Acetaminophen 325 MG TAB PO PRN (13:44)
[2020-03-15] MEDS: tiZANidine HCl 4 MG TAB PO PRN (13:46)
--- NOTE | 2020-03-15 18:39 | PRG ---
DATE OF SERVICE: 03/14/2020 SUBJECTIVE: The patient lying in bed, short of breath, complaining of right submammary pain, which she states grabs her at times and is a muscle spasm. OBJECTIVE: VITAL SIGNS: Show temperature of 98.7, pulse 92, respirations 22, O2 sats 98% on 3 L, and blood pressure 130/71. LUNGS: Showed markedly decreased breath sounds with no rales or rhonchi. CARDIAC: Showed regular rhythm. SKIN AND EXTREMITIES: Showed tenderness to feather touch to the right submammary area with occasional palpable spasms. ASSESSMENT: 1. Severe chronic obstructive pulmonary disease, respiratory failure, 3 L of oxygen. 2. Recurrent muscle spasms. 3. Chronic fibromyalgia. 4. Cancer of the lung with no evidence of . 5. Irritable bowel syndrome. PLAN: 1. Continue PT and OT. 2. Continue treatment for fibromyalgia. 3. Stressed the patient need to comply with therapy in order to remain in the hospital. Job ID: [id number]
--- NOTE | 2020-03-15 18:46 | PRG ---
DATE OF SERVICE: 03/15/2020 SUBJECTIVE: The patient is lying in bed, cooperating well with therapy this morning, walked 150 feet total, 50 feet at a time, but this afternoon, she was unable to do any therapy because of recurrent muscle spasms. She is comfortable at rest, but has pain on any movement, coughing, palpable spasms in her back with only relief with tizanidine. OBJECTIVE: VITAL SIGNS: pulse 97, respirations 18, O2 saturations 98% on room air, blood pressure 130/69. LUNGS: Show decreased breath sounds. CARDIAC: Showed regular rhythm. ABDOMEN: Soft and nontender. ASSESSMENT: 1. Severe chronic obstructive pulmonary disease with respiratory failure, stable. 2. Deconditioning, improving slightly. 3. Recurrent muscle spasms and fibromyalgia limiting therapy. 4. Irritable bowel, stable. 5. Anxiety, stable. PLAN: 1. Continue to stress muscle spasm treatment with tizanidine and monitor for lethargy. 2. Continue PT/OT. 3. Continue aggressive bronchodilators. Continue oxygen supplementation. Job ID: [id number]
[2020-03-15] MEDS: Gabapentin 300 MG CAP PO SCH (20:48)
[2020-03-15] MEDS: Famotidine 20 MG TAB PO SCH (20:48)
[2020-03-16] MEDS: Albuterol Sulfate 2.5 mg/3 ml Neb NEB SCH ×6 (03:02→23:06)
[2020-03-16] MEDS: Ipratropium Bromide 2.5 ml Neb NEB SCH ×3 (06:02→17:51)
[2020-03-16] MEDS: Budesonide 0.5 MG/2 ML NEB NEB SCH ×2 (06:02→18:25)
--- NOTE | 2020-03-16 07:09 | PRG ---
DATE OF SERVICE: 03/16/2020 SUBJECTIVE: Ms. Rivas is up in bed. She denies any complaints. She is happy with her progress. She is saying she is noticing occasional muscle spasms, but the Zanaflex is helping. Discussed with nursing. OBJECTIVE: VITAL SIGNS: She is afebrile. Heart rate 89, respirations 20, oxygen saturation 98% on 3 L, and blood pressure 123/63. CARDIOVASCULAR: S1, S2 plus. RESPIRATORY: Normal vesicular breath sounds. ABDOMEN: Soft, nontender. Bowel sounds heard in all quadrants. EXTREMITIES: Without cyanosis or clubbing. CENTRAL NERVOUS SYSTEM: Grossly nonfocal. IMPRESSION: 1. Chronic obstructive pulmonary disease. 2. Coronary artery disease. 3. Hypertension. 4. Dyslipidemia. 5. Fibromyalgia. 6. Irritable bowel syndrome. PLAN: 1. Continue current medications. 2. Monitor respiratory status and titrate oxygen. 3. Heart healthy diet. 4. DVT and stress ulcer prophylaxis. 5. Decubitus precautions. 6. Routine laboratory values. 7. Physical therapy. Job ID: [id number]
[2020-03-16] MEDS: Fluticasone Propionate Nasal Spray 16 gm Bottle NASAL SCH (09:20)
[2020-03-16] MEDS: Dicyclomine 20 MG TAB PO SCH ×2 (09:23→20:59)
[2020-03-16] MEDS: Citalopram 10 MG TAB PO SCH (09:24)
[2020-03-16] MEDS: Gabapentin 100 MG CAP PO SCH ×2 (09:24→14:28)
[2020-03-16] MEDS: Metoprolol Tartrate 25 MG TAB PO SCH ×2 (09:25→21:00)
[2020-03-16] MEDS: predniSONE 20 MG TAB PO SCH (09:26)
[2020-03-16] MEDS: guaiFENesin ER 600 MG TAB PO SCH ×2 (09:27→20:59)
[2020-03-16] MEDS: Simethicone Chewable 80 MG TAB PO SCH ×3 (09:27→20:59)
[2020-03-16] MEDS: tiZANidine HCl 4 MG TAB PO PRN ×2 (09:28→20:59)
[2020-03-16] MEDS: Acetaminophen 325 MG TAB PO PRN ×2 (17:06→20:59)
[2020-03-16] MEDS: ALPRAZolam 0.25 MG TAB PO PRN (20:59)
[2020-03-16] MEDS: Gabapentin 300 MG CAP PO SCH (21:00)
[2020-03-16] MEDS: Famotidine 20 MG TAB PO SCH (21:00)
[2020-03-17] MEDS ORDERED: Ipratropium Bromide 2.5 ml Neb ONE ×3 (00:44→18:19)
[2020-03-17] MEDS: Ipratropium Bromide 2.5 ml Neb NEB SCH ×4 (00:52→18:24)
[2020-03-17] MEDS: Albuterol Sulfate 2.5 mg/3 ml Neb NEB SCH ×6 (02:55→23:13)
[2020-03-17] MEDS ORDERED: Budesonide 0.5 MG/2 ML NEB ONE (05:31)
[2020-03-17] MEDS: Acetaminophen 325 MG TAB PO PRN ×3 (05:32→21:09)
[2020-03-17] MEDS: Budesonide 0.5 MG/2 ML NEB NEB SCH ×2 (05:32→17:52)
[2020-03-17] MEDS: Gabapentin 100 MG CAP PO SCH ×2 (08:49→15:22)
[2020-03-17] MEDS: predniSONE 20 MG TAB PO SCH (08:49)
[2020-03-17] MEDS: Dicyclomine 20 MG TAB PO SCH ×2 (08:50→21:10)
[2020-03-17] MEDS: Fluticasone Propionate Nasal Spray 16 gm Bottle NASAL SCH (08:50)
[2020-03-17] MEDS: guaiFENesin ER 600 MG TAB PO SCH ×2 (08:50→21:09)
[2020-03-17] MEDS: Metoprolol Tartrate 25 MG TAB PO SCH ×2 (08:50→21:09)
[2020-03-17] MEDS: Citalopram 10 MG TAB PO SCH (08:50)
[2020-03-17] MEDS: Simethicone Chewable 80 MG TAB PO SCH ×3 (08:50→21:10)
[2020-03-17] MEDS: tiZANidine HCl 4 MG TAB PO PRN ×2 (12:14→21:10)
--- NOTE | 2020-03-17 13:51 | PRG ---
DATE OF SERVICE: 03/17/2020 SUBJECTIVE: Ms. Rivas is doing well. She states that she slept great with muscle relaxant and pain medicine. She would like to have a heating pad. She is aware of the risks. OBJECTIVE: VITAL SIGNS: She is afebrile. Heart rate 76, respirations 18, oxygen saturation 99% on 2 L, blood pressure 147/71. CARDIOVASCULAR: S1 and S2 plus. RESPIRATORY: Normal vesicular breath sounds. ABDOMEN: Soft and nontender. Bowel sounds heard in all quadrants. EXTREMITIES: Without cyanosis or clubbing. CENTRAL NERVOUS SYSTEM: Improving deconditioning. IMPRESSION: 1. Chronic obstructive pulmonary disease. 2. Coronary artery disease. 3. Hypertension. 4. Dyslipidemia. 5. Fibromyalgia. 6. Irritable bowel syndrome. PLAN: 1. Continue current medications. 2. Heart-healthy diet. 3. Monitor respiratory status. 4. DVT and stress ulcer prophylaxis. 5. Decubitus precautions. 6. Routine laboratory values. 7. Continue therapy. 8. Dr. Severino moss [facility]. Job ID: [id number]
[2020-03-17] MEDS: ALPRAZolam 0.25 MG TAB PO PRN (21:10)
[2020-03-17] MEDS: Famotidine 20 MG TAB PO SCH (21:10)
[2020-03-17] MEDS: Gabapentin 300 MG CAP PO SCH (21:10)
[2020-03-18] MEDS: Ipratropium Bromide 2.5 ml Neb NEB SCH ×5 (01:14→23:43)
[2020-03-18] MEDS: Albuterol Sulfate 2.5 mg/3 ml Neb NEB SCH ×6 (03:38→23:42)
[2020-03-18] MEDS: Budesonide 0.5 MG/2 ML NEB NEB SCH ×2 (06:14→18:13)
[2020-03-18] MEDS: Gabapentin 100 MG CAP PO SCH ×2 (08:55→15:22)
[2020-03-18] MEDS: Fluticasone Propionate Nasal Spray 16 gm Bottle NASAL SCH (08:55)
[2020-03-18] MEDS: Metoprolol Tartrate 25 MG TAB PO SCH ×2 (08:56→21:28)
[2020-03-18] MEDS: Simethicone Chewable 80 MG TAB PO SCH ×3 (08:59→21:27)
[2020-03-18] MEDS: Dicyclomine 20 MG TAB PO SCH ×2 (08:59→21:28)
[2020-03-18] MEDS: Citalopram 10 MG TAB PO SCH (08:59)
[2020-03-18] MEDS: predniSONE 20 MG TAB PO SCH (08:59)
[2020-03-18] MEDS: guaiFENesin ER 600 MG TAB PO SCH ×2 (08:59→21:29)
[2020-03-18] MEDS: tiZANidine HCl 4 MG TAB PO PRN (08:59)
[2020-03-18] MEDS ORDERED: Ipratropium Bromide 2.5 ml Neb ONE (12:58)
[2020-03-18] MEDS: Acetaminophen 325 MG TAB PO PRN (21:27)
[2020-03-18] MEDS: ALPRAZolam 0.25 MG TAB PO PRN (21:27)
[2020-03-18] MEDS: Famotidine 20 MG TAB PO SCH (21:28)
[2020-03-18] MEDS: Methocarbamol 500 MG TAB PO PRN (21:28)
[2020-03-18] MEDS: Gabapentin 300 MG CAP PO SCH (21:28)
[2020-03-19] MEDS: Albuterol Sulfate 2.5 mg/3 ml Neb NEB SCH ×6 (03:29→21:03)
[2020-03-19] MEDS: Budesonide 0.5 MG/2 ML NEB NEB SCH ×2 (06:05→17:38)
[2020-03-19] MEDS: Ipratropium Bromide 2.5 ml Neb NEB SCH ×4 (06:05→23:44)
[2020-03-19 07:09] LABS: #Lymphocytes 1.3 thou/uL (1.20-3.40); #Monocytes 0.7 thou/uL (0.11-0.59); %Basophils 0.3 % (0.0-1.0); %Eosinophils 0.2 % (0.0-10.0); %Lymphocytes 13.9 % (21.0-51.0); %Neutrophils 77.5 % (42.0-75.0); Hemoglobin 11.2 g/dL (12.0-16.0); Mean Corpuscular HGB CONC 32.2 g/dL (32.0-36.0); Mean Corpuscular Hemoglobin 31.9 pg (27.0-31.0); Mean Corpuscular Volume 98.9 fL (78.0-98.0); Platelet Count 377 thou/uL (130-400); RBC Distribution Width 12.6 % (11.5-14.5); Red Blood Cell (RBC) Count 3.52 mill/uL (4.20-5.40)
--- NOTE | 2020-03-19 07:22 | PRG ---
DATE OF SERVICE: 03/18/2020 SUBJECTIVE: The patient lying in bed states that she is having a new problem of pain in her lower back radiating down her leg as her neuropathic pain in her right side of her chest is improved. She describes this as a muscle spasm and feels that her muscle relaxant is not working. She is already on high dose steroid, prednisone for possible neuropathic pain as well as gabapentin at the maximum dose. She can tolerate. She is still having some dyspnea on exertion, but minimal at rest. OBJECTIVE: VITAL SIGNS: Vital signs show her temperature is 98, pulse is 98, respirations 22, O2 saturations 98% on 2 L, and blood pressure only been 123/63, but increased to 192/89 last night. ASSESSMENT: 1. Persistent chronic obstructive pulmonary disease with exacerbation, slowly responding. 2. Persistent fibromyalgia, degenerative disk disease of her back, limiting her therapy now with recurrent muscle spasms. 3. Anxiety, stable. 4. History of cancer of the lung with no evidence of exacerbation. 5. Severe deconditioning, working minimally with therapy secondary to fibromyalgia and muscle spasms. PLAN: 1. Discontinue tizanidine. 2. Start methocarbamol 500 every 6 hours. 3. Continue PT/OT. 4. Continue aggressive bronchodilators with steroids and nebulizers. 5. Repeat labs in the a.m. Job ID: [id number]
[2020-03-19 07:27] LABS: ALT (SGPT) 18 U/L (8-55); AST (SGOT) 11 U/L (5-34); Albumin 3.9 g/dL (3.4-4.8); Alkaline Phosphatase 95 U/L (40-110); Anion Gap 12 mmol/L (10-20); BUN (Urea Nitrogen) 13 mg/dL (9.8-20.1); Bilirubin, Total 0.3 mg/dL (0.2-1.2); Calc. Creatinine Clearance 79 mL/min (70-130); Calcium 9.2 mg/dL (7.8-10.44); Carbon Dioxide 29 mmol/L (23-31); Chloride 99 mmol/L (98-107); Estimated GFR-MDRD 80; Globulin 2.6 g/dL (2.4-3.5); Glucose 87 mg/dL (80-115); Potassium 3.3 mmol/L (3.5-5.1); Protein, Total 6.5 g/dL (6.0-8.3); Sodium 137 mmol/L (136-145)
[2020-03-19] MEDS: Gabapentin 100 MG CAP PO SCH ×2 (08:36→13:58)
[2020-03-19] MEDS: guaiFENesin ER 600 MG TAB PO SCH ×2 (08:36→21:01)
[2020-03-19] MEDS: predniSONE 20 MG TAB PO SCH (08:37)
[2020-03-19] MEDS: Dicyclomine 20 MG TAB PO SCH ×2 (08:37→21:02)
[2020-03-19] MEDS: Simethicone Chewable 80 MG TAB PO SCH ×3 (08:37→21:03)
[2020-03-19] MEDS: Citalopram 10 MG TAB PO SCH (08:38)
[2020-03-19] MEDS: Metoprolol Tartrate 25 MG TAB PO SCH ×2 (08:38→21:02)
[2020-03-19] MEDS: Fluticasone Propionate Nasal Spray 16 gm Bottle NASAL SCH (08:43)
[2020-03-19] MEDS: Methocarbamol 500 MG TAB PO PRN ×3 (09:37→21:02)
[2020-03-19] MEDS: ALPRAZolam 0.25 MG TAB PO PRN (21:02)
[2020-03-19] MEDS: Acetaminophen 325 MG TAB PO PRN (21:02)
[2020-03-19] MEDS: Gabapentin 300 MG CAP PO SCH (21:02)
[2020-03-19] MEDS: Famotidine 20 MG TAB PO SCH (21:02)
[2020-03-20] MEDS: Albuterol Sulfate 2.5 mg/3 ml Neb NEB SCH ×6 (02:40→21:31)
[2020-03-20] MEDS: Ipratropium Bromide 2.5 ml Neb NEB SCH ×4 (05:10→23:32)
[2020-03-20] MEDS: Budesonide 0.5 MG/2 ML NEB NEB SCH ×2 (05:10→17:54)
--- NOTE | 2020-03-20 07:21 | PRG ---
DATE OF SERVICE: 03/19/2020 SUBJECTIVE: The patient lying in bed resting, states she has had some improvement in her muscle spasm, but is still having the radicular type of nerve pain that she has had in the past from her degenerative disk disease. She, however, has cooperated somewhat with therapy but is limited somewhat by her pain and weakness. She is having minimal symptoms at rest now, particularly no further right-sided chest pain. OBJECTIVE: VITAL SIGNS: Blood pressure is 147/66, temperature is 98.8, pulse 90, respirations 18, and O2 saturations 95% on 3 L. LUNGS: Show decreased breath sounds. No rales, rhonchi, or wheezes. CARDIAC: Showed regular rhythm. ABDOMEN: Soft and nontender. SKIN/EXTREMITIES: Show no edema, clubbing, or cyanosis. NEUROLOGICAL: Shows diffuse generalized weakness. LABORATORY DATA: Show white count 9000, hematocrit 34, and hemoglobin 11. Sodium 137, potassium 3.3, chloride 99, bicarb 29, BUN 13, creatinine 0.72, glucose 87, calcium 9.2. AST 11, ALT 18. ASSESSMENT: 1. Chronic obstructive pulmonary disease, severe with resolving exacerbation, but persistent weakness. 2. Severe deconditioning secondary to recurrent chronic obstructive pulmonary disease exacerbation plus underlying fibromyalgia and degenerative disk disease. 3. Recurrent back pain and radicular pain secondary to degenerative disk disease despite high-dose oral steroids and muscle relaxants. 4. Fibromyalgia, stable. PLAN: 1. Stress need to continue PT, OT in order to maintain ADLs to be discharged home. 2. Continue Robaxin as patient states that does help her muscle spasms better than tizanidine. 3. Continue high-dose prednisone, although lungs are doing well, to hopefully improve radicular pain without any increased narcotics. Job ID: [id number]
[2020-03-20] MEDS: Metoprolol Tartrate 25 MG TAB PO SCH ×2 (09:01→21:28)
[2020-03-20] MEDS: Gabapentin 100 MG CAP PO SCH ×2 (09:02→14:16)
[2020-03-20] MEDS: Potassium Chloride 10 MEQ TAB PO SCH (09:02)
[2020-03-20] MEDS: Dicyclomine 20 MG TAB PO SCH ×2 (09:02→21:27)
[2020-03-20] MEDS: Simethicone Chewable 80 MG TAB PO SCH ×3 (09:02→21:28)
[2020-03-20] MEDS: predniSONE 20 MG TAB PO SCH (09:02)
[2020-03-20] MEDS: guaiFENesin ER 600 MG TAB PO SCH ×2 (09:02→21:29)
[2020-03-20] MEDS: Citalopram 10 MG TAB PO SCH (09:02)
[2020-03-20] MEDS: Fluticasone Propionate Nasal Spray 16 gm Bottle NASAL SCH (09:04)
[2020-03-20] MEDS: Methocarbamol 500 MG TAB PO PRN ×3 (09:06→23:32)
[2020-03-20] MEDS: ALPRAZolam 0.25 MG TAB PO PRN (21:27)
[2020-03-20] MEDS: Famotidine 20 MG TAB PO SCH (21:27)
[2020-03-20] MEDS: Acetaminophen 325 MG TAB PO PRN (21:28)
[2020-03-20] MEDS: Gabapentin 300 MG CAP PO SCH (21:28)
[2020-03-21] MEDS: Albuterol Sulfate 2.5 mg/3 ml Neb NEB SCH ×6 (02:35→21:12)
[2020-03-21] MEDS: Budesonide 0.5 MG/2 ML NEB NEB SCH ×2 (06:02→18:13)
[2020-03-21] MEDS: Ipratropium Bromide 2.5 ml Neb NEB SCH ×4 (06:03→23:48)
[2020-03-21] MEDS: Potassium Chloride 10 MEQ TAB PO SCH (08:23)
[2020-03-21] MEDS: Simethicone Chewable 80 MG TAB PO SCH ×3 (08:23→21:10)
[2020-03-21] MEDS: Acetaminophen 325 MG TAB PO PRN ×3 (08:23→21:12)
[2020-03-21] MEDS: Methocarbamol 500 MG TAB PO PRN ×3 (08:23→21:12)
[2020-03-21] MEDS: predniSONE 20 MG TAB PO SCH (08:23)
[2020-03-21] MEDS: guaiFENesin ER 600 MG TAB PO SCH ×2 (08:23→21:07)
[2020-03-21] MEDS: Metoprolol Tartrate 25 MG TAB PO SCH ×2 (08:24→21:08)
[2020-03-21] MEDS: Gabapentin 100 MG CAP PO SCH ×2 (08:24→14:49)
[2020-03-21] MEDS: Dicyclomine 20 MG TAB PO SCH ×2 (08:24→21:10)
[2020-03-21] MEDS: Citalopram 10 MG TAB PO SCH (08:24)
[2020-03-21] MEDS: Fluticasone Propionate Nasal Spray 16 gm Bottle NASAL SCH (08:28)
[2020-03-21] MEDS: Gabapentin 300 MG CAP PO SCH (21:10)
[2020-03-21] MEDS: Famotidine 20 MG TAB PO SCH (21:10)
[2020-03-22] MEDS: Albuterol Sulfate 2.5 mg/3 ml Neb NEB SCH ×7 (02:16→23:41)
[2020-03-22] MEDS: ALPRAZolam 0.25 MG TAB PO PRN (02:54)
[2020-03-22] MEDS: Acetaminophen 325 MG TAB PO PRN ×4 (02:54→22:08)
[2020-03-22] MEDS: Budesonide 0.5 MG/2 ML NEB NEB SCH ×2 (05:32→18:35)
[2020-03-22] MEDS: Ipratropium Bromide 2.5 ml Neb NEB SCH ×4 (05:32→22:08)
--- NOTE | 2020-03-22 06:35 | PRG ---
DATE OF SERVICE: 03/21/2020 SUBJECTIVE: The patient is sitting up in the chair. Eating her supper. States she did cooperate with therapy today and had a good day. Therapy agrees with this. However, she states that she does not think she can increase her therapy more tomorrow as requested. She states that her muscle spasms had markedly improved, and her radiculopathy pain also had improved. LABORATORY DATA: Recent laboratory showed a sodium 137, potassium 3.3, chloride 99, bicarb 29, BUN 13, creatinine 0.72, and glucose 87. Liver functions normal. White count 9000, hematocrit 34, and hemoglobin 11.2. OBJECTIVE: LUNGS: Show markedly decreased breath sounds. ABDOMEN: Soft, nontender. NEUROLOGICAL: Shows no focal finding. ASSESSMENT: 1. Severe chronic obstructive pulmonary disease with oxygen requirement, stable. 2. Significant anxiety, limiting therapy. 3. Fibromyalgia, chronic and stable. 4. Degenerative disk disease with improving radiculopathy. 5. Severe deconditioning, slowly improving. PLAN: 1. Continue to stress need to get stronger in order to return home and to push herself with therapy. 2. Continue bronchodilators and supplemental oxygen for COPD. 3. Continue anxiety medication. 4. Continue muscle relaxants and anti-inflammatory. Job ID: [id number]
--- NOTE | 2020-03-22 06:36 | PRG ---
DATE OF SERVICE: 03/20/2020 SUBJECTIVE: The patient is still having some pain in her right leg with recurrence of her sciatic pain previously from degenerative disk disease. However, she is having markedly decreased muscle spasms on Robaxin. She is having no dyspnea at rest, but does have chronic dyspnea on exertion. She has been cooperating with therapy minimally, but is improving. OBJECTIVE: VITAL SIGNS: Show temperature is 96.9, pulse 87, respirations 22, O2 saturations 97% on 0.5 L, blood pressure 130/60. LUNGS: Show markedly decreased breath sounds with no rales, rhonchi, rubs, or wheezes. ABDOMEN: Soft and nontender. SKIN/EXTREMITIES: Show some tenderness to feather touch under her right breast improved and along the right leg. PT states that she is cooperating with therapy, but anxiety plays a big part in her limitation. Walking, is only able to walk 30 feet x2 with no change in vital signs. ASSESSMENT: 1. Chronic anxiety. 2. Fibromyalgia, improved. 3. Symptoms of degenerative disk disease, radiculopathy, on steroids. 4. Severe chronic obstructive pulmonary disease, oxygen dependent, appears to be stable. PLAN: 1. Continue PT/OT. Continue to stress need to work with therapy. 2. Continue Robaxin for muscle spasm. 3. Continue prednisone for possible sciatica and chronic bronchodilators for COPD. Job ID: [id number]
[2020-03-22] MEDS: Metoprolol Tartrate 25 MG TAB PO SCH ×2 (08:32→20:45)
[2020-03-22] MEDS: Potassium Chloride 10 MEQ TAB PO SCH (08:32)
[2020-03-22] MEDS: predniSONE 20 MG TAB PO SCH (08:32)
[2020-03-22] MEDS: Methocarbamol 500 MG TAB PO PRN ×2 (08:32→20:45)
[2020-03-22] MEDS: Gabapentin 100 MG CAP PO SCH ×2 (08:32→14:05)
[2020-03-22] MEDS: Dicyclomine 20 MG TAB PO SCH ×2 (08:33→20:46)
[2020-03-22] MEDS: Citalopram 10 MG TAB PO SCH (08:33)
[2020-03-22] MEDS: guaiFENesin ER 600 MG TAB PO SCH ×2 (08:33→20:45)
[2020-03-22] MEDS: Simethicone Chewable 80 MG TAB PO SCH ×3 (08:33→20:45)
[2020-03-22] MEDS: Fluticasone Propionate Nasal Spray 16 gm Bottle NASAL SCH (08:33)
[2020-03-22] MEDS: Famotidine 20 MG TAB PO SCH (20:45)
[2020-03-22] MEDS: Gabapentin 300 MG CAP PO SCH (20:45)
[2020-03-23] MEDS: Ipratropium Bromide 2.5 ml Neb NEB SCH ×4 (05:33→22:17)
[2020-03-23] MEDS: Albuterol Sulfate 2.5 mg/3 ml Neb NEB SCH ×5 (05:33→22:17)
[2020-03-23] MEDS: Budesonide 0.5 MG/2 ML NEB NEB SCH ×2 (05:34→18:11)
--- NOTE | 2020-03-23 08:11 | PRG ---
DATE OF SERVICE: 03/22/2020 SUBJECTIVE: The patient feels well, lying in bed, resting. States she has good day, working with therapy, but did not rest too well last night, was upset with the nurse. She however feels that her breathing is doing better. Her muscle spasms are improved and she is slowly getting better. OBJECTIVE: VITAL SIGNS: Show temperature is 97.1, pulse 92, respirations 20, O2 sats 97% on 2 L, and blood pressure is 140/64. LUNGS: Clear. CARDIAC: Shows regular rhythm. ABDOMEN: Soft and nontender. SKIN/EXTREMITIES: Displayed no edema, clubbing, or cyanosis. NEUROLOGIC: Shows no focal findings. ASSESSMENT: 1. Severe chronic obstructive pulmonary disease with resolving exacerbation on high-dose steroids. 2. Right lumbar sciatic radiculopathy, appears to be slowly improving with prednisone therapy and muscle relaxants. 3. Fibromyalgia with current muscle spasms, improved on Robaxin. 4. Deconditioning persistent, but slowly improving. We will stress the patient need to continue in order to be discharged home. PLAN: 1. Continue PT/OT. Advice the patient can have family visit her and limited time daily. 2. Continue stress, control of pain with limited medications. 3. Continue high-dose bronchodilators and steroids and hopefully wean off steroids next week. Job ID: [id number]
[2020-03-23] MEDS: Citalopram 10 MG TAB PO SCH (08:38)
[2020-03-23] MEDS: Simethicone Chewable 80 MG TAB PO SCH ×3 (08:38→20:30)
[2020-03-23] MEDS: Metoprolol Tartrate 25 MG TAB PO SCH ×2 (08:38→20:31)
[2020-03-23] MEDS: Potassium Chloride 10 MEQ TAB PO SCH (08:38)
[2020-03-23] MEDS: Dicyclomine 20 MG TAB PO SCH ×2 (08:38→20:31)
[2020-03-23] MEDS: guaiFENesin ER 600 MG TAB PO SCH ×2 (08:39→20:31)
[2020-03-23] MEDS: predniSONE 20 MG TAB PO SCH (08:39)
[2020-03-23] MEDS: Gabapentin 100 MG CAP PO SCH ×2 (08:39→14:26)
[2020-03-23] MEDS: Methocarbamol 500 MG TAB PO PRN ×4 (08:40→20:31)
[2020-03-23] MEDS: Fluticasone Propionate Nasal Spray 16 gm Bottle NASAL SCH (08:40)
[2020-03-23] MEDS: Gabapentin 300 MG CAP PO SCH (20:30)
[2020-03-23] MEDS: Famotidine 20 MG TAB PO SCH (20:31)
[2020-03-23] MEDS: Acetaminophen 325 MG TAB PO PRN (22:17)
[2020-03-24 00:07] VITALS: BMI 28.1
[2020-03-24] MEDS: Albuterol Sulfate 2.5 mg/3 ml Neb NEB SCH ×7 (05:16→23:31)
[2020-03-24] MEDS: Budesonide 0.5 MG/2 ML NEB NEB SCH ×2 (05:49→18:27)
[2020-03-24] MEDS: Ipratropium Bromide 2.5 ml Neb NEB SCH ×4 (05:49→22:38)
[2020-03-24] MEDS: Acetaminophen 325 MG TAB PO PRN ×2 (05:52→20:22)
[2020-03-24] MEDS: Methocarbamol 500 MG TAB PO PRN ×3 (05:52→20:22)
[2020-03-24] MEDS: Potassium Chloride 10 MEQ TAB PO SCH (08:32)
[2020-03-24] MEDS: Fluticasone Propionate Nasal Spray 16 gm Bottle NASAL SCH ×2 (08:33→08:48)
[2020-03-24] MEDS: Simethicone Chewable 80 MG TAB PO SCH ×3 (08:33→20:23)
[2020-03-24] MEDS: Metoprolol Tartrate 25 MG TAB PO SCH ×2 (08:34→20:22)
[2020-03-24] MEDS: Gabapentin 100 MG CAP PO SCH ×2 (08:35→14:11)
[2020-03-24] MEDS: Citalopram 10 MG TAB PO SCH (08:37)
[2020-03-24] MEDS: predniSONE 20 MG TAB PO SCH (08:44)
[2020-03-24] MEDS: Dicyclomine 20 MG TAB PO SCH ×2 (08:44→20:23)
--- NOTE | 2020-03-24 08:44 | PRG ---
DATE OF SERVICE: 03/23/2020 SUBJECTIVE: The patient just got back from going to the bathroom short of breath, but is able to talk and recover fairly quickly and has been doing her therapy, did enjoy her visit with her . Yesterday, she was having recurrent muscle spasms, but improved with medication. OBJECTIVE: VITAL SIGNS: Temperature 97, pulse 59, respirations 20, O2 sats 96% on 1 L, blood pressure 134/83. LUNGS: Clear with decreased breath sounds. CARDIAC: Showed regular rhythm. ABDOMEN: Soft and nontender. SKIN/EXTREMITIES: Display no edema, clubbing, or cyanosis. ASSESSMENT: 1. Severe COPD with recent exacerbations, stabilizing with improving oxygenation. 2. Hypokalemia, on supplementation and we will repeat BMP in 2 days. 3. Severe deconditioning, improving slowly. 4. Fibromyalgia, stable with current back pain, muscle spasms, improved with Robaxin. 5. Degenerative disk disease with occasional radicular pain, stable. PLAN: 1. Continue PT/OT. 2. Repeat labs on Wednesday. 3. Continue Robaxin for muscle spasms. 4. Continue to stress, increased oral intake and limitation of pain. Job ID: [id number]
[2020-03-24] MEDS: guaiFENesin ER 600 MG TAB PO SCH ×2 (08:45→20:23)
[2020-03-24] MEDS: Famotidine 20 MG TAB PO SCH (20:22)
[2020-03-24] MEDS: Gabapentin 300 MG CAP PO SCH (20:22)
[2020-03-25 05:27] LABS: #Lymphocytes 1.3 thou/uL (1.20-3.40); #Monocytes 0.7 thou/uL (0.11-0.59); #Neutrophils 8.8 thou/uL (1.40-6.50); %Basophils 0.3 % (0.0-1.0); %Lymphocytes 11.9 % (21.0-51.0); %Monocytes 6.1 % (0.0-10.0); %Neutrophils 81.8 % (42.0-75.0); Hemoglobin 11.7 g/dL (12.0-16.0); Mean Corpuscular HGB CONC 31.7 g/dL (32.0-36.0); Mean Corpuscular Hemoglobin 31.8 pg (27.0-31.0); Platelet Count 328 thou/uL (130-400); RBC Distribution Width 12.7 % (11.5-14.5); Red Blood Cell (RBC) Count 3.68 mill/uL (4.20-5.40); White Blood Cell (WBC) Count 10.8 thou/uL (4.8-10.8)
[2020-03-25] MEDS: Budesonide 0.5 MG/2 ML NEB NEB SCH ×2 (05:34→18:31)
[2020-03-25] MEDS: Ipratropium Bromide 2.5 ml Neb NEB SCH ×4 (05:34→22:38)
[2020-03-25] MEDS: Albuterol Sulfate 2.5 mg/3 ml Neb NEB SCH ×5 (05:34→22:37)
[2020-03-25 05:47] LABS: ALT (SGPT) 17 U/L (8-55); AST (SGOT) 11 U/L (5-34); Albumin 3.8 g/dL (3.4-4.8); Alkaline Phosphatase 89 U/L (40-110); Anion Gap 14 mmol/L (10-20); BUN (Urea Nitrogen) 11 mg/dL (9.8-20.1); Bilirubin, Total 0.3 mg/dL (0.2-1.2); Calc. Creatinine Clearance 74 mL/min (70-130); Calcium 9.3 mg/dL (7.8-10.44); Carbon Dioxide 28 mmol/L (23-31); Chloride 101 mmol/L (98-107); Estimated GFR-MDRD 76; Globulin 2.4 g/dL (2.4-3.5); Glucose 91 mg/dL (80-115); Protein, Total 6.2 g/dL (6.0-8.3); Sodium 138 mmol/L (136-145)
[2020-03-25] MEDS: Potassium Chloride 10 MEQ TAB PO SCH (08:10)
[2020-03-25] MEDS: Dicyclomine 20 MG TAB PO SCH ×2 (08:10→21:22)
[2020-03-25] MEDS: Citalopram 10 MG TAB PO SCH (08:10)
[2020-03-25] MEDS: Gabapentin 100 MG CAP PO SCH ×2 (08:11→14:15)
[2020-03-25] MEDS: guaiFENesin ER 600 MG TAB PO SCH ×2 (08:11→21:22)
[2020-03-25] MEDS: Fluticasone Propionate Nasal Spray 16 gm Bottle NASAL SCH (08:11)
[2020-03-25] MEDS: Metoprolol Tartrate 25 MG TAB PO SCH ×2 (08:12→21:22)
[2020-03-25] MEDS: predniSONE 20 MG TAB PO SCH (08:12)
[2020-03-25] MEDS: Simethicone Chewable 80 MG TAB PO SCH ×3 (08:18→21:21)
--- NOTE | 2020-03-25 09:48 | CT ---
CT thoracic spine noncontrast: DATE: 03/25/2020 HISTORY: 69-year-old male with lung cancer presents with upper and lower back pain FINDINGS: There is exaggerated kyphosis of the thoracic spine. The vertebral body heights are maintained. There are endplate marginal osteophytes of moderate size that protrude into the prevertebral space at multiple levels in the midthoracic spine, from T3-4 through T8-9. There is no central spinal canal st enosis at any level. No bony retropulsion. No large central disc herniation. There is neural foraminal stenosis at several levels, including left T5-6, T6-7, and T10-11; and right T4-5 and espec ially T9-T10. No mass or hematoma in the perivertebral space. The lateral pleural-based right upper lobe pulmonary lesion has not significant changed compared to the chest CT of 02/25/2020. No destructi ve osseous lesion is identified. No recent or remote fracture of posterior medial aspects of ribs. No pleural effusion. IMPRESSION: 1. No compression fracture. 2. Multilevel mild to moderate degenerative disc disease at several levels in the mid and lower thora cic spine.
--- NOTE | 2020-03-25 09:53 | PRG ---
DATE OF SERVICE: 03/24/2020 SUBJECTIVE: The patient is sitting up in the bed. States that she is still having significant pain in her back radiating down her legs, which is limiting her therapy. She is still having shortness of breath, but she states that this is stable. She is having no nausea or vomiting. She is having intermittent muscle spasms, controlled with Robaxin, but asking for more frequent dose. OBJECTIVE: VITAL SIGNS: Shows temperature 97.7, pulse 91, respirations 20, and O2 sats 97% on 0.5 L. ABDOMEN: Soft and nontender. LUNGS: Clear with decreased breath sounds. CARDIAC: Regular rhythm. No gallops or murmurs. SKIN/EXTREMITIES: Showed no edema. She has palpable spasms and tenderness of the thoracolumbar spine. ASSESSMENT: 1. Chronic obstructive pulmonary disease with recent exacerbation stabilizing with dyspnea on exertion and chronic hypoxemia. 2. Persistent back pain with radicular symptoms, minimal improvement with steroids and with muscle relaxants and we will get CT to ensure no change in her degenerative disk disease . 3. Anxiety, fairly stable. 4. Fibromyalgia, unsure what component is of the pain. PLAN: 1. CT of the lumbar and thoracic spine. 2. Increase Robaxin to 500 q.6. 3. Continue PT/OT. 4. Continue 2 L of oxygen and do not attempt to wean. 5. Continue bronchodilators with handheld nebulizers. Job ID: [id number]
--- NOTE | 2020-03-25 10:18 | CT ---
CT lumbar spine noncontrast: DATE: 03/25/2020 HISTORY: 69-year-old female with lung cancer low back pain COMPARISON: None FINDINGS: There are 5 lumbar-type vertebrae. Vertebral body heights are maintained. No scoliosis, spondylolisth esis, or spondylolysis. No high-grade central spinal canal stenosis or high-grade neural foraminal stenosis, at any level. Disc spaces are maintained. At T12-L1 there is a central disc extrusion with superior migration a short distance, and inferior migration to the pedicle level of L1. This indents the thecal sac and causes mild central stenosis. There is no mass in the perivertebral spaces . No hydronephrosis. Heavy atherosclerotic calcification of abdominal aorta and iliac arteries, without aneurysm. Several bilateral adrenal nodules are present. One of the larger ones is approximat clau 2.5 x 1.5 cm on the right, with density of 23 Hounsfield units. These were not present on the PET scan of 09/22/2017. No destructive osseous lesion. No bony retropulsion. Diffuse osteopenia. IMPRESSION: 1. Multiple bilateral adrenal nodules. Recommend follow-up PET scan to rule out adrenal metastases. 2. Central disc herniation at T12-L1. 3. No compression fracture, osseous metastasis, high-grade central spinal canal stenosis, or high-gra de neural foraminal stenosis, at any level.
[2020-03-25] MEDS: Methocarbamol 500 MG TAB PO PRN ×2 (14:18→21:22)
[2020-03-25] MEDS: Acetaminophen 325 MG TAB PO PRN ×2 (14:18→21:21)
[2020-03-25] MEDS: Famotidine 20 MG TAB PO SCH (21:22)
[2020-03-25] MEDS: Gabapentin 300 MG CAP PO SCH (21:22)
[2020-03-26] MEDS: Albuterol Sulfate 2.5 mg/3 ml Neb NEB SCH ×6 (03:35→22:32)
[2020-03-26] MEDS: Acetaminophen 325 MG TAB PO PRN ×3 (04:53→20:35)
[2020-03-26] MEDS: Methocarbamol 500 MG TAB PO PRN ×3 (04:53→20:35)
[2020-03-26] MEDS: Budesonide 0.5 MG/2 ML NEB NEB SCH ×2 (04:53→18:31)
[2020-03-26] MEDS: Ipratropium Bromide 2.5 ml Neb NEB SCH ×4 (04:54→22:32)
[2020-03-26] MEDS: predniSONE 20 MG TAB PO SCH (08:04)
[2020-03-26] MEDS: Simethicone Chewable 80 MG TAB PO SCH ×3 (08:05→20:35)
[2020-03-26] MEDS: Citalopram 10 MG TAB PO SCH (08:05)
[2020-03-26] MEDS: Gabapentin 100 MG CAP PO SCH (08:05)
[2020-03-26] MEDS: Potassium Chloride 10 MEQ TAB PO SCH (08:05)
[2020-03-26] MEDS: Dicyclomine 20 MG TAB PO SCH ×2 (08:05→20:35)
[2020-03-26] MEDS: Metoprolol Tartrate 25 MG TAB PO SCH ×2 (08:05→20:36)
[2020-03-26] MEDS: guaiFENesin ER 600 MG TAB PO SCH ×2 (08:06→20:35)
[2020-03-26] MEDS: Fluticasone Propionate Nasal Spray 16 gm Bottle NASAL SCH (08:07)
[2020-03-26] MEDS: Gabapentin 300 MG CAP PO SCH ×3 (09:29→20:35)
[2020-03-26] MEDS: Famotidine 20 MG TAB PO SCH (20:35)
[2020-03-27] MEDS: Albuterol Sulfate 2.5 mg/3 ml Neb NEB SCH ×6 (00:33→22:20)
[2020-03-27] MEDS: Budesonide 0.5 MG/2 ML NEB NEB SCH ×2 (05:47→18:46)
[2020-03-27] MEDS: Ipratropium Bromide 2.5 ml Neb NEB SCH ×4 (05:50→23:43)
--- NOTE | 2020-03-27 06:11 | PRG ---
DATE OF SERVICE: 03/26/2020 SUBJECTIVE: The patient feels better today. She has been walking with therapy today and feels she will be ready for discharge next week. OBJECTIVE: VITAL SIGNS: Temperature is 97.6, pulse 104, respirations 18, O2 sats 97% on 2 L, and blood pressure 117/70. LUNGS: Show decreased breath sounds diffusely with no rales, rhonchi, or wheezes. CARDIAC: Shows regular rhythm. ABDOMEN: Soft and nontender. SKIN/EXTREMITIES: Show tenderness to palpation in the right lower back. NEUROLOGIC: Shows no focal findings. ASSESSMENT: 1. Resolving chronic obstructive pulmonary disease with exacerbation. 2. Degenerative disk disease of lumbar and thoracic spine, stable. 3. Fibromyalgia, stable. 4. Cancer of the lung, status post radiation. No evidence of recurrence in the lung, but with bilateral adrenal nodules and we will discuss with Oncology. Job ID: [id number]
--- NOTE | 2020-03-27 06:20 | PRG ---
DATE OF SERVICE: 03/27/2020 SUBJECTIVE: The patient feels better, ready for therapy, and anticipating discharge home to be with her . LABORATORY DATA: Sodium 138, potassium 5.0, chloride 101, bicarb 28, BUN 11, creatinine 0.75, glucose 91. Liver function is normal. White count 10,800, hematocrit 36, hemoglobin 11. OBJECTIVE: LUNGS: Show decreased breath sounds. No rales or rhonchi. CARDIAC: Shows regular rhythm. No gallops or murmurs. ABDOMEN: Soft and nontender. SKIN/EXTREMITIES: Display no edema, clubbing, or cyanosis. NEUROLOGIC: Intact. MUSCULOSKELETAL: Shows tenderness to palpation of the right lower back. ASSESSMENT: 1. Chronic obstructive pulmonary disease with exacerbation, resolving. We will decrease prednisone 20 mg daily. 2. Hyperkalemia with potassium supplementation. We will discontinue potassium supplement. 3. Fibromyalgia, stable. 4. Degenerative disk disease, thoracic and lumbar spine, stable. We will continue Robaxin. 5. Anxiety, stable on citalopram and alprazolam. 6. History of cancer of lung, status post radiotherapy with finding of bilateral adrenal nodules and we will discuss with Oncology. Job ID: [id number]
--- NOTE | 2020-03-27 06:21 | PRG ---
DATE OF SERVICE: 03/25/2020 SUBJECTIVE: The patient states that pain in her back is stable with no improvement or deterioration, and she is cooperating with therapy. Her dyspnea is also stable, requiring 2 L of oxygen and periodic rest. DIAGNOSTIC DATA: Thoracic spine CT scan showed no compression fractures, multilevel [id number] degenerative disk disease with no evidence of significant spinal stenosis. Lumbar spine CT scan also showed multiple bilateral adrenal nodules. Recommended followup PET scan to rule out adrenal metastasis. Central disk herniation at T12-L1, mild central stenosis. No compression fracture metastasis, high-grade central spinal stenosis, or high-grade neuroforaminal stenosis at any level. OBJECTIVE: LUNGS: Decreased breath sounds. CARDIAC: Regular rhythm. ABDOMEN: Soft and nontender. SKIN/EXTREMITIES: Tenderness to palpation of the right lower back. ASSESSMENT: 1. Chronic obstructive pulmonary disease with exacerbation, responding now on lower dose of prednisone to 40 mg daily and will decrease to 20 mg daily later in the week, but will remain on 2 L of O2. 2. Chronic multilevel degenerative disk disease and joint disease, lumbar and thoracic spine, but no acute changes and only conservative treatment recommended. 3. Cancer of the lung, status post radiotherapy with no evidence of recurrence in the lung, but with multiple bilateral adrenal nodules, which have presented since 2017, and we will discuss with Oncology after discharge. 4. Severe anxiety, stable. 5. Chronic fibromyalgia, limiting therapy at times. PLAN: 1. Continue PT, OT. 2. Discuss adrenal nodules with her oncologist, ethnology teacher. 3. Continue Robaxin for muscle spasms. Continue citalopram and alprazolam for anxiety. Continue prednisone 40 mg daily until Wednesday and then decreased to 20 mg daily. Continue metoprolol for hypertension. Job ID: [id number]
[2020-03-27] MEDS: Simethicone Chewable 80 MG TAB PO SCH ×3 (09:03→20:43)
[2020-03-27] MEDS: guaiFENesin ER 600 MG TAB PO SCH ×2 (09:03→20:43)
[2020-03-27] MEDS: Citalopram 10 MG TAB PO SCH (09:03)
[2020-03-27] MEDS: Methocarbamol 500 MG TAB PO PRN ×3 (09:03→22:19)
[2020-03-27] MEDS: predniSONE 20 MG TAB PO SCH (09:03)
[2020-03-27] MEDS: Metoprolol Tartrate 25 MG TAB PO SCH ×2 (09:04→20:43)
[2020-03-27] MEDS: Gabapentin 300 MG CAP PO SCH ×3 (09:04→20:42)
[2020-03-27] MEDS: Dicyclomine 20 MG TAB PO SCH ×2 (09:04→20:42)
[2020-03-27] MEDS: Fluticasone Propionate Nasal Spray 16 gm Bottle NASAL SCH (09:08)
[2020-03-27] MEDS: Acetaminophen 325 MG TAB PO PRN ×2 (16:10→22:19)
[2020-03-27] MEDS: Famotidine 20 MG TAB PO SCH (20:42)
[2020-03-28] MEDS: Albuterol Sulfate 2.5 mg/3 ml Neb NEB SCH ×6 (02:07→21:25)
[2020-03-28] MEDS: Ipratropium Bromide 2.5 ml Neb NEB SCH ×3 (05:51→18:01)
[2020-03-28] MEDS: Budesonide 0.5 MG/2 ML NEB NEB SCH ×2 (06:19→18:18)
[2020-03-28] MEDS: Acetaminophen 325 MG TAB PO PRN ×3 (06:19→21:26)
[2020-03-28] MEDS: Methocarbamol 500 MG TAB PO PRN ×3 (08:54→21:29)
[2020-03-28] MEDS: Citalopram 10 MG TAB PO SCH (08:54)
[2020-03-28] MEDS: predniSONE 20 MG TAB PO SCH (08:54)
[2020-03-28] MEDS: Dicyclomine 20 MG TAB PO SCH ×2 (08:54→21:27)
[2020-03-28] MEDS: Simethicone Chewable 80 MG TAB PO SCH ×3 (08:55→21:25)
[2020-03-28] MEDS: Gabapentin 300 MG CAP PO SCH ×3 (08:55→21:27)
[2020-03-28] MEDS: Metoprolol Tartrate 25 MG TAB PO SCH ×2 (08:55→21:26)
[2020-03-28] MEDS: guaiFENesin ER 600 MG TAB PO SCH ×2 (08:55→21:27)
[2020-03-28] MEDS: Fluticasone Propionate Nasal Spray 16 gm Bottle NASAL SCH (08:56)
[2020-03-28] MEDS: Famotidine 20 MG TAB PO SCH (21:26)
[2020-03-29] MEDS: Albuterol Sulfate 2.5 mg/3 ml Neb NEB SCH ×3 (03:22→10:32)
[2020-03-29] MEDS: Methocarbamol 500 MG TAB PO PRN ×2 (04:07→10:33)
[2020-03-29] MEDS: Ipratropium Bromide 2.5 ml Neb NEB SCH ×3 (05:36→13:08)
[2020-03-29] MEDS: Budesonide 0.5 MG/2 ML NEB NEB SCH (05:38)
[2020-03-29 08:18] VITALS: TEMP 96.5
[2020-03-29] MEDS: guaiFENesin ER 600 MG TAB PO SCH (08:42)
[2020-03-29] MEDS: Simethicone Chewable 80 MG TAB PO SCH (08:42)
[2020-03-29] MEDS: Gabapentin 300 MG CAP PO SCH (08:42)
[2020-03-29] MEDS: Metoprolol Tartrate 25 MG TAB PO SCH (08:42)
[2020-03-29] MEDS: Dicyclomine 20 MG TAB PO SCH (08:43)
[2020-03-29] MEDS: Fluticasone Propionate Nasal Spray 16 gm Bottle NASAL SCH (08:43)
[2020-03-29] MEDS: Citalopram 10 MG TAB PO SCH (08:43)
[2020-03-29] MEDS ORDERED: predniSONE 20 MG TAB PO SCH (09:00)
[2020-03-29 12:44] VITALS: BP 106/61
--- NOTE | 2020-03-29 14:44 | PRG ---
DATE OF SERVICE: 03/28/2020 SUBJECTIVE: The patient feels well, working with therapy, anticipating discharge home tomorrow, and request for medications will be transferred to the pharmacy. Daughter states that she does not need to be weaned completely off prednisone and advised her we will only take down 20 mg daily. OBJECTIVE: VITAL SIGNS: Show blood pressure of 106/62, temperature 97, pulse 107, respirations 20, and O2 sats 98% on room air. LUNGS: Decreased breath sounds. CARDIAC: Examination showed regular rhythm. ABDOMEN: Soft, nontender. SKIN/EXTREMITIES: Show tenderness to palpation of upper and lower back. NEUROLOGIC: Intact. ASSESSMENT: 1. Stable chronic obstructive pulmonary disease, hypoxemia. 2. Stable deconditioning. 3. Stable fibromyalgia. 4. Stable cancer of the lung to follow up with Dr. Donato as an outpatient about bilateral adrenal nodules. PLAN: Discharge tomorrow. Job ID: [id number]
--- NOTE | 2020-03-30 05:34 | DIS ---
DATE OF ADMISSION: 03/12/2020 DATE OF DISCHARGE: 03/29/2020 FINAL DIAGNOSES: 1. Chronic obstructive pulmonary disease with exacerbation, stabilizing, but with persistent need for oxygen and for steroids and with dyspnea on minimal exertion but appears to be at her baseline. 2. Fibromyalgia causing her some symptomatology but appears to have stabilized. 3. Degenerative disk disease evaluated with scan showing no surgical disease and only need for Robaxin. She has taken and done well with it and as well as gabapentin. 4. Cancer of the lung, status post radiation therapy with new finding of bilateral adrenal nodules. Will follow with Dr. Donato. 5. Anxiety and depression, appears to be stable. HOSPITAL COURSE: The patient is a 69-year-old white female with a long history of severe COPD as well as a diagnosis of cancer of lung, status post radiation as well as fibromyalgia, degenerative disk disease, and chronic pain, who has been followed by pain doctors with minimal relief, but has been admitted to the hospital with COPD exacerbation, weakness, and is admitted to swing unit for therapy. She has slowly improved, but Is to the point on discharge she is able to maintain her ADLs on oxygen with minimal exercise. She has had some significant pain in her back, which has been evaluated showing no new findings and is being treated with gabapentin and Robaxin with fair control. Her cancer of the lung appears to have no recurrence but there are some bilateral adrenal nodules which she will discuss with her radiotherapist, Dr. Donato next month. Her prognosis is poor. She needs 24-hour assistance. She is minimally able to maintain her ADLs and the family understands this and she will be followed by [facility] on chronic oxygen. DISCHARGE MEDICATIONS: Included; 1. Atorvastatin 20 daily. 2. Pulmicort 0.25 twice daily in nebulizer. 3. Ipratropium nebulizer 2.5 every 6 hours. 4. Citalopram 10 mg daily. 5. Dicyclomine 20 twice daily. 6. Famotidine 20 nightly. 7. Fluticasone 1 spray each nostril daily. 8. Gabapentin 200 at 9 o'clock and 3 o'clock and 300 at 9 p.m. 9. Prednisone 20 mg daily. 10. Anoro Ellipta 1 puff daily. DISCHARGE PLAN: She will be followed by [facility]. Job ID: [id number]
== END 2020-03-29 14:11 | disposition home or self-care (01) | DRG 191 ==
LOC: NAV ACUTE 14:06
PROVIDERS: ADMIT Internal Medicine; ATTEND Internal Medicine
DX: J44.1 Chronic obstructive pulmonary disease with (acute) exacerbation (principal); J96.10 Chronic respiratory failure, unspecified whether with hypoxia or hypercapnia; C34.90 Malignant neoplasm of unspecified part of unspecified bronchus or lung; E78.5 Hyperlipidemia, unspecified; I10 Essential (primary) hypertension; M79.7 Fibromyalgia; M19.90 Unspecified osteoarthritis, unspecified site; F41.9 Anxiety disorder, unspecified; K58.9 Irritable bowel syndrome, unspecified; M62.838 Other muscle spasm; M54.16 Radiculopathy, lumbar region; G89.29 Other chronic pain; F32.9 Major depressive disorder, single episode, unspecified; E87.6 Hypokalemia; I25.10 Atherosclerotic heart disease of native coronary artery without angina pectoris; I25.2 Old myocardial infarction; Z90.49 Acquired absence of other specified parts of digestive tract; Z90.710 Acquired absence of both cervix and uterus; Z87.891 Personal history of nicotine dependence; Z88.1 Allergy status to other antibiotic agents; Z99.81 Dependence on supplemental oxygen; Z88.0 Allergy status to penicillin; Z88.2 Allergy status to sulfonamides; Z88.8 Allergy status to other drugs, medicaments and biological substances; Z98.61 Coronary angioplasty status
CPT/HCPCS: 36415; 36416; 72128; 72131; 80053; 81001; 85025; 93798; J7512; J7611; J7620; J7626

== ENCOUNTER 2020-06-26 13:39 | Inpatient (IN) | payer MEDICARE, BC ==
[2020-06-26 14:12] VITALS: BMI 29.9
[2020-06-26] MEDS ORDERED: Albuterol Sulfate 2.5 mg/3 ml Neb NEB PRN (18:59)
[2020-06-26] MEDS: Atorvastatin Calcium 20 MG TAB PO SCH (20:41)
[2020-06-26] MEDS: Metoprolol Tartrate 25 MG TAB PO SCH (20:41)
[2020-06-26] MEDS: guaiFENesin ER 600 MG TAB PO SCH (20:41)
[2020-06-26] MEDS: Simethicone Chewable 80 MG TAB PO SCH (20:41)
[2020-06-26] MEDS: Dicyclomine 20 MG TAB PO SCH (20:41)
[2020-06-26] MEDS: Gabapentin 300 MG CAP PO SCH (20:41)
[2020-06-26] MEDS: ALPRAZolam 0.25 MG TAB PO PRN (20:42)
[2020-06-26] MEDS: Methocarbamol 500 MG TAB PO PRN (20:50)
[2020-06-27 05:26] LABS: #Lymphocytes 1.2 thou/uL (1.20-3.40); #Neutrophils 7.4 thou/uL (1.40-6.50); %Basophils 1.2 % (0.0-1.0); %Eosinophils 0.2 % (0.0-10.0); %Lymphocytes 12.4 % (21.0-51.0); %Monocytes 10.3 % (0.0-10.0); %Neutrophils 75.9 % (42.0-75.0); Hemoglobin 11.8 g/dL (12.0-16.0); Manual Diff?? NO; Mean Corpuscular HGB CONC 33.1 g/dL (32.0-36.0); Mean Corpuscular Hemoglobin 32.1 pg (27.0-31.0); Mean Corpuscular Volume 96.9 fL (78.0-98.0); Mean Platelet Volume 6.2 fL (7.4-10.4); Platelet Count 264 thou/uL (130-400); RBC Distribution Width 11.2 % (11.5-14.5); Red Blood Cell (RBC) Count 3.68 mill/uL (4.20-5.40); White Blood Cell (WBC) Count 9.7 thou/uL (4.8-10.8)
[2020-06-27 05:27] LABS: #Basophils 0.1 thou/uL (0.0-0.2)
[2020-06-27 05:32] LABS: ALT (SGPT) 21 U/L (8-55); AST (SGOT) 20 U/L (5-34); Albumin 3.4 g/dL (3.4-4.8); Alkaline Phosphatase 60 U/L (40-110); Anion Gap 13 mmol/L (10-20); BUN (Urea Nitrogen) 18 mg/dL (9.8-20.1); Bilirubin, Total 0.5 mg/dL (0.2-1.2); Calc. Creatinine Clearance 88 mL/min (70-130); Calcium 8.4 mg/dL (7.8-10.44); Chloride 94 mmol/L (98-107); Estimated GFR-MDRD 87; Globulin 2.2 g/dL (2.4-3.5); Glucose 78 mg/dL (83-110); Potassium 3.7 mmol/L (3.5-5.1); Protein, Total 5.6 g/dL (6.0-8.3); Sodium 133 mmol/L (136-145)
[2020-06-27 05:35] LABS: Carbon Dioxide 30 mmol/L (23-31)
[2020-06-27] MEDS: Budesonide 0.5 MG/2 ML NEB NEB SCH ×2 (05:47→18:47)
--- NOTE | 2020-06-27 08:01 | RAD ---
EXAM: Single view of the chest HISTORY: COPD COMPARISON: 06/17/2020 FINDINGS: Single view of the chest shows a normal sized cardiomediastinal silhouette. Atheroscleroti c calcifications are seen in the aorta. Stable scarring is seen in the right apex. Increased interstitial markings are present. There is no evidence of consolidation, mass, or pleural effusion. Degenerative changes are seen in the spine. IMPRESSION: No evidence of acute cardiopulmonary disease
[2020-06-27 08:26] LABS: Bilirubin Negative (Negative); Blood, Urine Negative (Negative); Clarity Clear (Clear); Glucose, Urine (Dipstick) Negative (Negative); Ketone, Urine Trace mg/dL (Negative); Leukocyte Negative (Negative); Nitrite Negative (Negative); Protein, Urine (Dipstick) Negative (Neg-Trace); Specific Gravity, Urine 1.015 (1.005-1.030); Urobilinogen 0.2 mg/dL (Less than 2); pH, Urine 7.5 (5.0-9.0)
[2020-06-27 08:28] LABS: Bacteria/HPF Rare-Few HPF (None Seen); RBC/HPF None Seen HPF (0-3); Squamous Epithelial 0-3 HPF (0-3); WBC/HPF None Seen HPF (0-3)
[2020-06-27] MEDS ORDERED: Non-Formulary Item 1 EACH (Umeclidinium/Vilanterol [Anoro Ellipta 62.5/25 Mcg Inh] 1 PUFF INH SCH (09:00)
[2020-06-27] MEDS: Gabapentin 100 MG CAP PO SCH ×2 (09:20→14:24)
[2020-06-27] MEDS: Fluticasone Propionate Nasal Spray 16 gm Bottle NASAL SCH (09:21)
[2020-06-27] MEDS: predniSONE 20 MG TAB PO SCH (09:21)
[2020-06-27] MEDS: Simethicone Chewable 80 MG TAB PO SCH ×3 (09:21→20:26)
[2020-06-27] MEDS: Metoprolol Tartrate 25 MG TAB PO SCH ×2 (09:21→20:27)
[2020-06-27] MEDS: Citalopram 10 MG TAB PO SCH (09:21)
[2020-06-27] MEDS: guaiFENesin ER 600 MG TAB PO SCH ×2 (09:21→20:27)
[2020-06-27] MEDS: Dicyclomine 20 MG TAB PO SCH ×2 (09:21→20:27)
[2020-06-27] MEDS: Acetaminophen 325 MG TAB PO PRN (14:24)
--- NOTE | 2020-06-27 14:50 | HP ---
HISTORY OF PRESENT ILLNESS: The patient is a 70-year-old white female, well known to myself with a long history of COPD and recurrent exacerbations, who is recently admitted to [facility] with an exacerbation with bronchospasm after exposure to a pet. She required increase in her oxygen 4 L, but now is down to 2 L and is 99%. Chest x-ray showed no infiltrates. She was treated with IV Solu-Medrol and bronchodilators and slowly improved. The patient has a long history of fibromyalgia, chronic back pain, and has been in the bed until the day prior to transfer, but now is cooperating with therapy and is admitted to [facility] for continued therapy. PAST MEDICAL HISTORY: As mentioned above is remarkable for fibromyalgia; degenerative joint disease and disk disease of the lumbar spine with chronic pain; lung cancer status post radiation in remission, being followed by Dr. Nur; hypertension, anxiety, coronary artery disease status post distant stents, hyperlipidemia, and the above-mentioned COPD. PAST SURGICAL HISTORY: Positive for partial hysterectomy, appendectomy, cholecystectomy, the above-mentioned coronary stents many years ago. SOCIAL HISTORY: She is a smoker until 7 years ago. She does not drink alcohol. She lives with her . FAMILY MEDICAL HISTORY: Noncontributory. REVIEW OF SYSTEMS: HEENT: She denies any headaches, dizziness, change in vision or hearing, hoarseness or dysphagia. PULMONARY: She has the above-mentioned dyspnea on minimal exertion and even talking, but has occasional cough, minimal sputum production and wheezing. CARDIOVASCULAR: She denies chest pain, orthopnea, paroxysmal nocturnal dyspnea or edema. GASTROINTESTINAL: She has a right upper quadrant pain, which wraps around from her back and is felt to be due to radicular pain from her degenerative disk disease. She denies nausea, vomiting, diarrhea, constipation, although she does state that she has to take laxatives at times and is concerned as she has not had a bowel movement in 2 days, but she did have diarrhea when she was on her antibiotics. MUSCULOSKELETAL: She has the above-mentioned chronic back pain, leg pain, arm pain from fibromyalgia. GENITOURINARY: She denies dysuria, hematuria or nocturia. NEUROLOGIC: She denies localized numbness or weakness in arms or extremities. ASSESSMENT AND PLAN: The patient is an elderly white female, well known to myself with a long history of COPD, cancer of the lung, fibromyalgia, degenerative disk disease, and irritable bowel, who is admitted after an exacerbation of COPD with improvement in her cardiopulmonary status and oxygen requirement, but with severe weakness. She is therefore admitted for PT. She has had this in the past and has cooperated poorly at times, but apparently is ready to cooperate more at this time. She will be continued on her prehospitalization medications of, 1. Xanax 0.25 three times daily as needed. 2. Handheld nebulizer with DuoNeb q.6 routinely with Ventolin inhaler as needed. 3. Lipitor 20 mg nightly. 4. Budesonide 0.25 nebulizer twice daily. 5. Citalopram 10 daily. 6. Dicyclomine 20 mg twice daily. 7. Gabapentin 200 mg at 9 a.m. and 3 p.m. and 300 mg at night. 8. Robaxin 500 mg four times daily as needed. 9. Pantoprazole 40 mg daily. 10. Metoprolol 25 mg twice daily. 11. Prednisone 20 mg daily initially and hopefully wean down over the next several days. 12. Dimethicone 80 mg 3 times daily. She will continue on these medications and start on PT/OT and monitor closely for exacerbation of her COPD. Her prognosis is guarded because of her severe COPD, compromised also by her fibromyalgia and critical care myopathy and occasional noncompliance to therapy. Job ID: [id number]
[2020-06-27] MEDS: ALPRAZolam 0.25 MG TAB PO PRN (20:26)
[2020-06-27] MEDS: Atorvastatin Calcium 20 MG TAB PO SCH (20:26)
[2020-06-27] MEDS: Gabapentin 300 MG CAP PO SCH (20:27)
[2020-06-27] MEDS: Methocarbamol 500 MG TAB PO PRN (20:28)
[2020-06-28] MEDS: Budesonide 0.5 MG/2 ML NEB NEB SCH ×2 (05:38→18:18)
[2020-06-28] MEDS: guaiFENesin ER 600 MG TAB PO SCH ×2 (08:50→21:03)
[2020-06-28] MEDS: Simethicone Chewable 80 MG TAB PO SCH ×3 (08:50→21:03)
[2020-06-28] MEDS: Gabapentin 100 MG CAP PO SCH ×2 (08:51→15:05)
[2020-06-28] MEDS: predniSONE 20 MG TAB PO SCH (08:51)
[2020-06-28] MEDS: Citalopram 10 MG TAB PO SCH (08:51)
[2020-06-28] MEDS: Dicyclomine 20 MG TAB PO SCH ×2 (08:52→21:03)
[2020-06-28] MEDS: Metoprolol Tartrate 25 MG TAB PO SCH ×2 (08:52→21:03)
[2020-06-28] MEDS: Fluticasone Propionate Nasal Spray 16 gm Bottle NASAL SCH (08:53)
[2020-06-28] MEDS: ALPRAZolam 0.25 MG TAB PO PRN ×3 (09:01→22:56)
[2020-06-28] MEDS: Methocarbamol 500 MG TAB PO PRN ×3 (09:08→22:56)
[2020-06-28] MEDS: Gabapentin 300 MG CAP PO SCH (21:03)
[2020-06-28] MEDS: Atorvastatin Calcium 20 MG TAB PO SCH (21:03)
[2020-06-29] MEDS: Budesonide 0.5 MG/2 ML NEB NEB SCH ×2 (05:48→18:19)
[2020-06-29] MEDS: guaiFENesin ER 600 MG TAB PO SCH ×2 (08:33→20:49)
[2020-06-29] MEDS: ALPRAZolam 0.25 MG TAB PO PRN ×3 (08:33→23:22)
[2020-06-29] MEDS: Gabapentin 100 MG CAP PO SCH ×2 (08:34→15:14)
[2020-06-29] MEDS: Methocarbamol 500 MG TAB PO PRN ×3 (08:34→23:22)
[2020-06-29] MEDS: Dicyclomine 20 MG TAB PO SCH ×2 (08:35→20:49)
[2020-06-29] MEDS: predniSONE 20 MG TAB PO SCH (08:35)
[2020-06-29] MEDS: Citalopram 10 MG TAB PO SCH (08:35)
[2020-06-29] MEDS: Simethicone Chewable 80 MG TAB PO SCH ×3 (08:35→20:49)
[2020-06-29] MEDS: Metoprolol Tartrate 25 MG TAB PO SCH ×2 (08:35→20:49)
[2020-06-29] MEDS: Fluticasone Propionate Nasal Spray 16 gm Bottle NASAL SCH (08:36)
--- NOTE | 2020-06-29 09:05 | PRG ---
DATE OF SERVICE: 06/29/2020 SUBJECTIVE: Ms. Rivas is a well-developed, well-nourished 70-year-old white female. She has been a patient of Dr. Haq for many years and I know her through that association. She apparently has a long history of COPD and recurrent exacerbations which landed her in the hospital. She had significant exposures and bronchospasms. She was finally stabilized, treated with IV Solu-Medrol and bronchodilators and now was transferred to [facility] for continued therapy and physical therapy and occupational therapy. Subjectively, the patient states she had a good night and is breathing better this morning. She states she is eating well, feels much better. She has no concerns or complaints. I did answer all her questions. No family at bedside. OBJECTIVE: VITAL SIGNS: This morning reveal blood pressure 107/64, pulse 83, respirations 20, O2 saturation 96% to 97% on nasal cannula 2 L, and T-max 97.8. GENERAL: This is a well-developed, well-nourished, slightly obese white female, in no apparent distress at this time. HEENT: Normocephalic and nontraumatic cranium. Pupils are equally round and reactive. Extraocular movements are intact. Nose and throat are slightly dry. NECK: Supple without masses, nodes, or bruits. CHEST: Clear to auscultation, but the breath sounds are distant, they are also shallow. She has a rare cough. She has no significant sputum or wheezing. HEART: Reveals a regular rate and rhythm without murmurs, gallops, or rubs. ABDOMEN: Obese, soft, and nontender without organomegaly. Normal bowel sounds are noted. No rebound or guarding is noted. : Deferred. EXTREMITIES: Reveal chronic back pain, leg pain, and arm pain, mainly from her fibromyalgia and her degenerative lumbar disk disease. ASSESSMENT: 1. Acute exacerbation of chronic obstructive pulmonary disease, much improved. 2. History of lung cancer in the distant past. 3. Fibromyalgia. 4. Degenerative disk disease. 5. Irritable bowel syndrome. 6. Generalized weakness. 7. Anxiety and depressive disorder. PLAN: 1. We will continue her present medications. 2. Continue to monitor respiratory status closely. 3. Continue to monitor her blood pressure and adjust medications as needed. 4. Labs from admissions are excellent. 5. Her urinalysis was unremarkable. 6. Continue supportive care. 7. Stress ulcer prophylaxis. 8. Decubitus precautions. 9. DVT prophylaxis. Job ID: [id number]
[2020-06-29] MEDS: Gabapentin 300 MG CAP PO SCH (20:49)
[2020-06-29] MEDS: Atorvastatin Calcium 20 MG TAB PO SCH (20:49)
[2020-06-30] MEDS: Budesonide 0.5 MG/2 ML NEB NEB SCH ×2 (05:50→18:33)
--- NOTE | 2020-06-30 08:45 | PRG ---
DATE OF SERVICE: SUBJECTIVE: Ms. Rivas is a well-developed, well-nourished, very pleasant, 70-year-old white female. She has a long history of COPD and recurrent exacerbations. This occurred and ended up back in the hospital. She was finally stabilized with IV Solu-Medrol and bronchodilators. She has now been transferred to [facility] for continued PT and OT. The patient states she had a good day yesterday and sat up in a wheelchair a long time. She is transferring to the wheelchair, then going to the bathroom and transferring to the commode, which makes her feel much better about going in the bed john. She has no concerns or complaints. I did answer all her questions. OBJECTIVE: VITAL SIGNS: Today reveal blood pressure 112/72, pulse 100, respirations 20, O2 saturation 96% on 2 L, and T-max 97.9. PHYSICAL EXAMINATION: GENERAL: This is a well-developed, well-nourished, slightly obese white female, in no apparent distress at this time. HEENT: Normocephalic and nontraumatic cranium. Pupils equally round and reactive. Extraocular movements are intact. Nose and throat are still dry. NECK: Supple without masses, nodes, or bruits. CHEST: Clear to auscultation. Breath sounds are still distant. She has occasional but rare cough. She has no significant sputum production or wheezing. HEART: Reveals a regular rate and rhythm without murmurs, gallops, or rubs. ABDOMEN: Obese, soft, nontender without organomegaly. Normal bowel sounds are noted in all 4 quadrants. No rebound or guarding is noted. : Deferred. EXTREMITIES: Reveal history of chronic back pain, leg pain, and arm pain, mainly from her fibromyalgia. She does have some degenerative lumbar disk disease, but complains of no pain today. ASSESSMENT: 1. Acute exacerbation chronic obstructive pulmonary disease, much improved. 2. History of lung cancer in the distant past, treated with radiation. 3. Fibromyalgia. 4. Degenerative disk disease. 5. Irritable bowel syndrome. 6. Anxiety and depressive disorder. 7. Generalized weakness. PLAN: 1. Continue to monitor the patient's respiratory status closely. 2. Continue monitor the patient's blood pressure and adjust medications if needed. 3. Urinalysis is unremarkable. 4. Continue supportive care. 5. Stress ulcer prophylaxis. 6. Decubitus precautions. 7. DVT prophylaxis. 8. Continue physical therapy and occupational therapy. Job ID: [id number]
[2020-06-30] MEDS: predniSONE 20 MG TAB PO SCH (09:17)
[2020-06-30] MEDS: Metoprolol Tartrate 25 MG TAB PO SCH ×2 (09:17→21:40)
[2020-06-30] MEDS: Citalopram 10 MG TAB PO SCH (09:17)
[2020-06-30] MEDS: Simethicone Chewable 80 MG TAB PO SCH ×3 (09:17→21:40)
[2020-06-30] MEDS: Dicyclomine 20 MG TAB PO SCH ×2 (09:18→21:40)
[2020-06-30] MEDS: guaiFENesin ER 600 MG TAB PO SCH ×2 (09:18→21:40)
[2020-06-30] MEDS: Methocarbamol 500 MG TAB PO PRN ×3 (09:24→21:44)
[2020-06-30] MEDS: Gabapentin 100 MG CAP PO SCH ×2 (09:24→15:29)
[2020-06-30] MEDS: ALPRAZolam 0.25 MG TAB PO PRN ×3 (09:24→21:44)
[2020-06-30] MEDS: Fluticasone Propionate Nasal Spray 16 gm Bottle NASAL SCH (10:29)
[2020-06-30] MEDS: Atorvastatin Calcium 20 MG TAB PO SCH (21:39)
[2020-06-30] MEDS: Gabapentin 300 MG CAP PO SCH (21:40)
[2020-07-01] MEDS: Budesonide 0.5 MG/2 ML NEB NEB SCH ×2 (05:47→18:16)
[2020-07-01] MEDS: guaiFENesin ER 600 MG TAB PO SCH ×2 (07:59→20:38)
[2020-07-01] MEDS: Dicyclomine 20 MG TAB PO SCH ×2 (08:00→20:39)
[2020-07-01] MEDS: Gabapentin 100 MG CAP PO SCH ×2 (08:00→15:12)
[2020-07-01] MEDS: Methocarbamol 500 MG TAB PO PRN ×3 (08:00→20:39)
[2020-07-01] MEDS: Citalopram 10 MG TAB PO SCH (08:01)
[2020-07-01] MEDS: predniSONE 20 MG TAB PO SCH (08:01)
[2020-07-01] MEDS: ALPRAZolam 0.25 MG TAB PO PRN ×3 (08:01→22:54)
[2020-07-01] MEDS: Simethicone Chewable 80 MG TAB PO SCH ×3 (08:02→20:39)
[2020-07-01] MEDS: Metoprolol Tartrate 25 MG TAB PO SCH ×2 (08:02→20:39)
[2020-07-01] MEDS: Fluticasone Propionate Nasal Spray 16 gm Bottle NASAL SCH (08:03)
--- NOTE | 2020-07-01 13:54 | PRG ---
DATE OF SERVICE: 06/27/2020 SUBJECTIVE: The patient cooperating therapy. She states she is feeling better, cooperating with therapy, not having any significant back pain and it is being controlled with her medication. She is still on 4 L of oxygen and on 20 mg of prednisone, but is doing very well on this dose. OBJECTIVE: LUNGS: Decreased breath sounds. CARDIAC: Regular rhythm. VITAL SIGNS: Blood pressure of 153/83, O2 saturations 95% on 2 L. NEUROLOGIC: No focal findings. ASSESSMENT: 1. Slowly improving chronic obstructive pulmonary disease exacerbation. 2. Improving deconditioning. 3. Stable fibromyalgia. 4. Stable cancer of the lung, status post radiation therapy. 5. Stable irritable bowel. 6. Stable anxiety. PLAN: 1. Continue PT/OT. 2. Continue steroid therapy and bronchodilators with hopefully wean off steroids and starting next week. Job ID: [id number]
--- NOTE | 2020-07-01 13:58 | PRG ---
DATE OF SERVICE: 06/28/2020 SUBJECTIVE: The patient states she is doing well and feels she is getting stronger. She is frightened, however, about to decrease her steroids and wishes to discuss this next week. OBJECTIVE: VITAL SIGNS: Showed to have a temperature of 96.1, pulse 90, respirations 22, O2 sats 100% on 2 L, blood pressure 124/72. LUNGS: Show markedly decreased breath sounds. CARDIAC: Regular rhythm. ABDOMEN: Soft and nontender. EXTREMITIES: Show no edema. Tenderness to palpation on lower back. ASSESSMENT: 1. Improving chronic obstructive pulmonary disease exacerbation. 2. Stable degenerative disk disease and fibromyalgia with chronic back pain. 3. Stable irritable bowel. 4. Stable anxiety and depression. 5. Slowly improving deconditioning, possible steroid myopathy. PLAN: 1. Continue PT/OT. 2. Continue bronchodilators, oral steroid therapy. 3. Continue prehospitalization medications for fibromyalgia, degenerative disk disease. Job ID: [id number]
[2020-07-01] MEDS ORDERED: predniSONE 20 MG TAB PO SCH (14:00)
[2020-07-01] MEDS: Gabapentin 300 MG CAP PO SCH (20:39)
[2020-07-01] MEDS: Atorvastatin Calcium 20 MG TAB PO SCH (20:39)
[2020-07-02] MEDS: Budesonide 0.5 MG/2 ML NEB NEB SCH ×2 (05:57→18:15)
[2020-07-02] MEDS: predniSONE 20 MG TAB PO SCH (08:39)
[2020-07-02] MEDS: Dicyclomine 20 MG TAB PO SCH ×2 (08:40→21:03)
[2020-07-02] MEDS: Metoprolol Tartrate 25 MG TAB PO SCH ×2 (08:40→21:03)
[2020-07-02] MEDS: guaiFENesin ER 600 MG TAB PO SCH ×2 (08:40→21:03)
[2020-07-02] MEDS: Gabapentin 100 MG CAP PO SCH ×2 (08:40→15:01)
[2020-07-02] MEDS: Simethicone Chewable 80 MG TAB PO SCH ×3 (08:40→21:03)
[2020-07-02] MEDS: Fluticasone Propionate Nasal Spray 16 gm Bottle NASAL SCH (08:41)
[2020-07-02] MEDS: Citalopram 10 MG TAB PO SCH (08:41)
[2020-07-02] MEDS: Methocarbamol 500 MG TAB PO PRN ×3 (08:55→21:03)
[2020-07-02] MEDS: Atorvastatin Calcium 20 MG TAB PO SCH (21:03)
[2020-07-02] MEDS: Gabapentin 300 MG CAP PO SCH (21:03)
[2020-07-02] MEDS: ALPRAZolam 0.25 MG TAB PO PRN (21:03)
[2020-07-03] MEDS: Budesonide 0.5 MG/2 ML NEB NEB SCH ×2 (05:51→17:39)
[2020-07-03] MEDS: Fluticasone Propionate Nasal Spray 16 gm Bottle NASAL SCH (08:43)
[2020-07-03] MEDS: predniSONE 20 MG TAB PO SCH (08:43)
[2020-07-03] MEDS: Dicyclomine 20 MG TAB PO SCH ×2 (08:44→20:40)
[2020-07-03] MEDS: Gabapentin 100 MG CAP PO SCH ×2 (08:44→14:40)
[2020-07-03] MEDS: Metoprolol Tartrate 25 MG TAB PO SCH ×2 (08:44→20:39)
[2020-07-03] MEDS: guaiFENesin ER 600 MG TAB PO SCH ×2 (08:44→20:38)
[2020-07-03] MEDS: Simethicone Chewable 80 MG TAB PO SCH ×3 (08:44→20:40)
[2020-07-03] MEDS: Citalopram 10 MG TAB PO SCH (08:44)
[2020-07-03] MEDS: Methocarbamol 500 MG TAB PO PRN ×2 (08:51→20:39)
[2020-07-03] MEDS: ALPRAZolam 0.25 MG TAB PO PRN (20:39)
[2020-07-03] MEDS: Gabapentin 300 MG CAP PO SCH (20:40)
[2020-07-03] MEDS: Atorvastatin Calcium 20 MG TAB PO SCH (20:40)
[2020-07-04] MEDS: Budesonide 0.5 MG/2 ML NEB NEB SCH ×2 (05:05→18:01)
[2020-07-04] MEDS: guaiFENesin ER 600 MG TAB PO SCH ×2 (08:34→20:46)
[2020-07-04] MEDS: Gabapentin 100 MG CAP PO SCH ×2 (08:34→14:45)
[2020-07-04] MEDS: Dicyclomine 20 MG TAB PO SCH ×2 (08:34→20:47)
[2020-07-04] MEDS: Metoprolol Tartrate 25 MG TAB PO SCH ×2 (08:34→20:47)
[2020-07-04] MEDS: predniSONE 20 MG TAB PO SCH (08:34)
[2020-07-04] MEDS: Citalopram 10 MG TAB PO SCH (08:34)
[2020-07-04] MEDS: Simethicone Chewable 80 MG TAB PO SCH ×3 (08:35→20:46)
[2020-07-04] MEDS: Fluticasone Propionate Nasal Spray 16 gm Bottle NASAL SCH (08:35)
[2020-07-04] MEDS: Methocarbamol 500 MG TAB PO PRN ×3 (08:53→20:57)
[2020-07-04] MEDS: Acetaminophen 325 MG TAB PO PRN (13:29)
[2020-07-04] MEDS: Gabapentin 300 MG CAP PO SCH (20:46)
[2020-07-04] MEDS: Atorvastatin Calcium 20 MG TAB PO SCH (20:46)
[2020-07-04] MEDS: ALPRAZolam 0.25 MG TAB PO PRN (20:47)
[2020-07-05] MEDS: Acetaminophen 325 MG TAB PO PRN (06:17)
[2020-07-05] MEDS: Budesonide 0.5 MG/2 ML NEB NEB SCH ×2 (06:18→18:19)
[2020-07-05] MEDS: guaiFENesin ER 600 MG TAB PO SCH ×2 (07:58→21:01)
[2020-07-05] MEDS: Gabapentin 100 MG CAP PO SCH ×2 (07:58→15:17)
[2020-07-05] MEDS: Dicyclomine 20 MG TAB PO SCH ×2 (07:59→21:00)
[2020-07-05] MEDS: Citalopram 10 MG TAB PO SCH (07:59)
[2020-07-05] MEDS: ALPRAZolam 0.25 MG TAB PO PRN ×2 (07:59→15:17)
[2020-07-05] MEDS: Simethicone Chewable 80 MG TAB PO SCH ×3 (07:59→21:00)
[2020-07-05] MEDS: predniSONE 20 MG TAB PO SCH (08:00)
[2020-07-05] MEDS: Metoprolol Tartrate 25 MG TAB PO SCH ×2 (08:00→21:00)
[2020-07-05] MEDS: Methocarbamol 500 MG TAB PO PRN ×3 (08:00→21:01)
[2020-07-05] MEDS: Fluticasone Propionate Nasal Spray 16 gm Bottle NASAL SCH (08:01)
--- NOTE | 2020-07-05 16:55 | PRG ---
DATE OF SERVICE: 07/01/2020 SUBJECTIVE: The patient is a 70-year-old white female with a history of COPD with recent exacerbation as well as underlying cancer of the lungs, fibromyalgia, and irritable bowel, who has been admitted to [facility] for therapy and is doing much better at this time. She is having minimal back pain, is cooperating with therapy. She is still feeling unsafe about a shower, but is ready to consider. She is eating well and is in a good mood. OBJECTIVE: VITAL SIGNS: Temperature is 97, pulse 99, respirations 20, O2 saturations 98% on 2 L, blood pressure is 112/65. LUNGS: Clear. CARDIAC: Regular rhythm. ABDOMEN: Soft and nontender. SKIN/EXTREMITIES: Display no edema, clubbing, or cyanosis. NEUROLOGIC: Intact. ASSESSMENT: 1. Chronic obstructive pulmonary disease with exacerbation, stable on 20 mg of prednisone and will decrease to 10 mg. 2. Severe deconditioning, improving daily. 3. Anxiety and depression, stable. 4. Fibromyalgia, stable. PLAN: 1. Continue PT, OT. 2. Decrease prednisone to 10 mg daily. 3. Continue handheld nebulizers. 4. Continue gabapentin and Robaxin. Job ID: [id number]
--- NOTE | 2020-07-05 16:59 | PRG ---
DATE OF SERVICE: 07/05/2020 DISCUSSION: Lungs are clear. Decreased breath sounds. Cardiac examination shows regular rhythm. Abdomen is soft, nontender. Extremities display no edema, clubbing or cyanosis. therapist states that she will be ready for discharge five days. The patient agrees with this. PLAN: 1. Continue PT/OT. 2. Continue to monitor for exacerbation of irritable bowel, fibromyalgia. 3. Continue of prednisone and 2 L of oxygen for chronic obstructive pulmonary disease. Job ID: [id number]
--- NOTE | 2020-07-05 17:11 | PRG ---
DATE OF SERVICE: 07/02/2020 SUBJECTIVE: The patient feels well, cheerful, eating well. No abdominal pain, nausea, vomiting. Has been working with therapy, getting stronger working in the room, but still has not been independent in her ADLs. OBJECTIVE: VITAL SIGNS: Temperature 97.5, pulse 93, respirations 18, O2 sats 100% on 2 L. LUNGS: Clear with decreased breath sounds. CARDIAC: Examination shows regular rhythm. ABDOMEN: Soft and nontender. ASSESSMENT: 1. Slowly improving deconditioning. Stable chronic obstructive pulmonary disease with exacerbation on decreased prednisone 10 mg daily. 2. Stable fibromyalgia. 3. Stable irritable bowel. PLAN: Continue PT, OT. Continue 10 mg prednisone daily. Continue to monitor for exacerbation of irritable bowel or . Job ID: [id number]
--- NOTE | 2020-07-05 17:18 | PRG ---
DATE OF SERVICE: 07/03/2020 SUBJECTIVE: The patient feels much better, took a shower today, getting stronger, is walking in the [place]lin with therapist, only standby assistance. OBJECTIVE: VITAL SIGNS: Temperature 97.8, pulse 96, respirations 18, O2 saturation 99% on 2 L. LUNGS: Clear. Decreased breath sounds. CARDIAC: Showed regular rhythm. ABDOMEN: Soft, nontender. SKIN AND EXTREMITIES: Displayed no edema, clubbing, or cyanosis. There are some cushingoid facies. ASSESSMENT: 1. Stable chronic obstructive pulmonary disease with exacerbation on 10 mg prednisone. 2. Improving deconditioning. The patient is walking in the [place]lin with standby assistance. 3. Stable irritable bowel. 4. Stable fibromyalgia. PLAN: 1. Continue PT, OT. 2. Discuss with PT, discharge planning. 3. Continue medications for irritable bowel and fibromyalgia. Job ID: [id number]
--- NOTE | 2020-07-05 17:27 | PRG ---
DATE OF SERVICE: 07/05/2020 SUBJECTIVE: The patient is lying in bed, resting after a long day of therapy. No complaints. OBJECTIVE: VITAL SIGNS: Temperature is 97.1, pulse 98, respirations 18, O2 saturations 99% on 1 L. ASSESSMENT: 1. Improving deconditioning. 2. Stable chronic obstructive pulmonary disease. 3. Stable fibromyalgia. 4. Stable irritable bowel. PLAN: Continue PT and OT. Plan for discharge next week. Continue on 10 mg of prednisone and 1 L of oxygen. To be discharged home. Job ID: [id number]
[2020-07-05] MEDS: Atorvastatin Calcium 20 MG TAB PO SCH (21:00)
[2020-07-05] MEDS: Gabapentin 300 MG CAP PO SCH (21:01)
[2020-07-06] MEDS: Budesonide 0.5 MG/2 ML NEB NEB SCH ×2 (05:54→18:21)
[2020-07-06] MEDS: Gabapentin 100 MG CAP PO SCH ×2 (08:31→14:41)
[2020-07-06] MEDS: Citalopram 10 MG TAB PO SCH (08:32)
[2020-07-06] MEDS: Dicyclomine 20 MG TAB PO SCH ×2 (08:32→20:41)
[2020-07-06] MEDS: guaiFENesin ER 600 MG TAB PO SCH ×2 (08:32→20:41)
[2020-07-06] MEDS: predniSONE 20 MG TAB PO SCH (08:32)
[2020-07-06] MEDS: Methocarbamol 500 MG TAB PO PRN ×3 (08:32→20:42)
[2020-07-06] MEDS: Metoprolol Tartrate 25 MG TAB PO SCH ×2 (08:32→20:42)
[2020-07-06] MEDS: Simethicone Chewable 80 MG TAB PO SCH ×3 (08:32→20:41)
[2020-07-06] MEDS: Fluticasone Propionate Nasal Spray 16 gm Bottle NASAL SCH (08:33)
[2020-07-06] MEDS: Acetaminophen 325 MG TAB PO PRN (20:41)
[2020-07-06] MEDS: ALPRAZolam 0.25 MG TAB PO PRN (20:42)
[2020-07-06] MEDS: Gabapentin 300 MG CAP PO SCH (20:42)
[2020-07-06] MEDS: Atorvastatin Calcium 20 MG TAB PO SCH (20:42)
[2020-07-07] MEDS: Budesonide 0.5 MG/2 ML NEB NEB SCH ×2 (06:14→18:31)
[2020-07-07 06:57] LABS: #Eosinphils 0.1 thou/uL (0.0-0.7); #Lymphocytes 1.1 thou/uL (1.20-3.40); #Monocytes 0.4 thou/uL (0.11-0.59); #Neutrophils 5.1 thou/uL (1.40-6.50); %Basophils 0.6 % (0.0-1.0); %Lymphocytes 16.1 % (21.0-51.0); %Monocytes 5.5 % (0.0-10.0); %Neutrophils 76.8 % (42.0-75.0); Hemoglobin 9.9 g/dL (12.0-16.0); Mean Corpuscular HGB CONC 31.7 g/dL (32.0-36.0); Mean Corpuscular Hemoglobin 31.4 pg (27.0-31.0); Mean Corpuscular Volume 98.9 fL (78.0-98.0); Mean Platelet Volume 5.6 fL (7.4-10.4); Platelet Count 204 thou/uL (130-400); RBC Distribution Width 12.6 % (11.5-14.5); Red Blood Cell (RBC) Count 3.14 mill/uL (4.20-5.40); White Blood Cell (WBC) Count 6.7 thou/uL (4.8-10.8)
--- NOTE | 2020-07-07 07:05 | PRG ---
DATE OF SERVICE: 07/06/2020 SUBJECTIVE: The patient feels well, up about moving in the room and in the [place]lin without assistance and feels she is preparing for transfer home next week. OBJECTIVE: VITAL SIGNS: Show temperature is 98.2, pulse 100, respirations 20, O2 sats 97% on 1 L, and blood pressure 117/62. LUNGS: Clear. Decreased breath sounds. CARDIAC: Shows regular rhythm. ABDOMEN: Soft and nontender. SKIN/EXTREMITIES: Show no edema. ASSESSMENT: 1. Resolving exacerbation of chronic obstructive pulmonary disease, on stable steroid dose and 1 L of O2. 2. Greatly improving deconditioning. 3. Stable fibromyalgia. 4. Stable anxiety and depression. 5. Stable irritable bowel. PLAN: 1. Continue PT/OT. 2. Repeat labs tomorrow. 3. Continue stable dose of prednisone and oxygen. 4. Prepare for discharge next week. Job ID: [id number]
[2020-07-07 07:12] LABS: ALT (SGPT) 14 U/L (8-55); AST (SGOT) 12 U/L (5-34); Albumin 3.5 g/dL (3.4-4.8); Alkaline Phosphatase 91 U/L (40-110); Anion Gap 13 mmol/L (10-20); BUN (Urea Nitrogen) 8 mg/dL (9.8-20.1); Bilirubin, Total 0.3 mg/dL (0.2-1.2); Calc. Creatinine Clearance 94 mL/min (70-130); Calcium 8.5 mg/dL (7.8-10.44); Carbon Dioxide 30 mmol/L (23-31); Chloride 95 mmol/L (98-107); Estimated GFR-MDRD Greater than 90; Globulin 2.1 g/dL (2.4-3.5); Glucose 84 mg/dL (83-110); Potassium 3.5 mmol/L (3.5-5.1); Protein, Total 5.6 g/dL (6.0-8.3); Sodium 134 mmol/L (136-145)
[2020-07-07] MEDS: Dicyclomine 20 MG TAB PO SCH ×2 (08:11→21:02)
[2020-07-07] MEDS: Gabapentin 100 MG CAP PO SCH ×2 (08:11→15:21)
[2020-07-07] MEDS: Metoprolol Tartrate 25 MG TAB PO SCH ×2 (08:12→21:02)
[2020-07-07] MEDS: Citalopram 10 MG TAB PO SCH (08:12)
[2020-07-07] MEDS: guaiFENesin ER 600 MG TAB PO SCH ×2 (08:12→21:01)
[2020-07-07] MEDS: Simethicone Chewable 80 MG TAB PO SCH ×3 (08:12→21:02)
[2020-07-07] MEDS: Methocarbamol 500 MG TAB PO PRN ×3 (08:12→21:02)
[2020-07-07] MEDS: predniSONE 20 MG TAB PO SCH (08:12)
[2020-07-07] MEDS: Fluticasone Propionate Nasal Spray 16 gm Bottle NASAL SCH (08:18)
[2020-07-07] MEDS: Acetaminophen 325 MG TAB PO PRN (12:30)
[2020-07-07] MEDS: ALPRAZolam 0.25 MG TAB PO PRN ×2 (13:12→21:02)
[2020-07-07] MEDS: Gabapentin 300 MG CAP PO SCH (21:02)
[2020-07-07] MEDS: Atorvastatin Calcium 20 MG TAB PO SCH (21:02)
[2020-07-08] MEDS: Budesonide 0.5 MG/2 ML NEB NEB SCH ×2 (05:46→18:13)
[2020-07-08] MEDS: guaiFENesin ER 600 MG TAB PO SCH ×2 (08:39→20:36)
[2020-07-08] MEDS: Simethicone Chewable 80 MG TAB PO SCH ×3 (08:40→20:36)
[2020-07-08] MEDS: Gabapentin 100 MG CAP PO SCH ×2 (08:40→15:01)
[2020-07-08] MEDS: Methocarbamol 500 MG TAB PO PRN ×3 (08:40→20:36)
[2020-07-08] MEDS: Citalopram 10 MG TAB PO SCH (08:40)
[2020-07-08] MEDS: Dicyclomine 20 MG TAB PO SCH ×2 (08:40→20:36)
[2020-07-08] MEDS: predniSONE 20 MG TAB PO SCH (08:40)
[2020-07-08] MEDS: ALPRAZolam 0.25 MG TAB PO PRN ×2 (08:41→15:01)
[2020-07-08] MEDS: Metoprolol Tartrate 25 MG TAB PO SCH ×2 (08:41→20:36)
[2020-07-08] MEDS: Fluticasone Propionate Nasal Spray 16 gm Bottle NASAL SCH (08:42)
[2020-07-08] MEDS: Gabapentin 300 MG CAP PO SCH (20:35)
[2020-07-08] MEDS: Acetaminophen 325 MG TAB PO PRN (20:36)
[2020-07-08] MEDS: Atorvastatin Calcium 20 MG TAB PO SCH (20:36)
[2020-07-09] MEDS: Budesonide 0.5 MG/2 ML NEB NEB SCH (05:03)
[2020-07-09] MEDS: Simethicone Chewable 80 MG TAB PO SCH (08:14)
[2020-07-09] MEDS: Gabapentin 100 MG CAP PO SCH (08:14)
[2020-07-09] MEDS: guaiFENesin ER 600 MG TAB PO SCH (08:14)
[2020-07-09] MEDS: Metoprolol Tartrate 25 MG TAB PO SCH (08:15)
[2020-07-09] MEDS: Methocarbamol 500 MG TAB PO PRN (08:15)
[2020-07-09] MEDS: Dicyclomine 20 MG TAB PO SCH (08:15)
[2020-07-09] MEDS: Citalopram 10 MG TAB PO SCH (08:15)
[2020-07-09] MEDS: predniSONE 20 MG TAB PO SCH (08:16)
[2020-07-09] MEDS: ALPRAZolam 0.25 MG TAB PO PRN (08:16)
[2020-07-09] MEDS: Fluticasone Propionate Nasal Spray 16 gm Bottle NASAL SCH (08:19)
[2020-07-09 08:43] VITALS: BP 121/64; TEMP 98
--- NOTE | 2020-07-09 09:16 | PRG ---
DATE OF SERVICE: 07/08/2020 SUBJECTIVE: The patient feels well, up and walking with therapy today, has done all of her exam and feels she is ready for discharge. OBJECTIVE: VITAL SIGNS: Show temperature is 97.6, pulse 89, respirations 20, O2 saturations 99% on 1 L, blood pressure 125/57. LUNGS: Show decreased breath sounds. CARDIAC: Shows regular rhythm. ABDOMEN: Soft and nontender. SKIN/EXTREMITIES: Show no edema. ASSESSMENT: 1. Resolving exacerbation of chronic obstructive pulmonary disease. 2. Stable respiratory failure on 1 L oxygen, 10 mg prednisone. 3. Improved deconditioning, able to maintain ADLs. 4. Irritable bowel, stable on dicyclomine. 5. Fibromyalgia, controlled with gabapentin. 6. Anxiety and depression, stable. PLAN: Discharge home tomorrow with family on present medications. Job ID: [id number]
--- NOTE | 2020-07-09 09:28 | PRG ---
DATE OF SERVICE: 07/07/2020 SUBJECTIVE: The patient feels well, walking in the [place]lin with a walker in her room without assistance, preparing for her exit exams tomorrow. OBJECTIVE: VITAL SIGNS: Temperature is 98, pulse 98, respirations 20, O2 sats 97% on 1 L, and blood pressure is 112/64. LUNGS: Show decreased breath sounds. CARDIAC: Shows regular rhythm. ABDOMEN: Soft and nontender. SKIN/EXTREMITIES: Show no edema. ASSESSMENT: 1. Resolved chronic obstructive pulmonary disease exacerbation with stable respiratory failure on 10 mg of prednisone and 1 L of oxygen. 2. Deconditioning, improved greatly with the patient walking with a walker. 3. Irritable bowel, stable. 4. Fibromyalgia, controlled on gabapentin. 5. Anxiety, stable. PLAN: Prepare for exams tomorrow as the patient is being discharged home in 2 days. Continue to walk with a walker and monitor safety exams. Continue on 10 mg prednisone and 1 L of oxygen indefinitely. Job ID: [id number]
--- NOTE | 2020-07-10 02:15 | DIS ---
DATE OF ADMISSION: 06/26/2020 DATE OF DISCHARGE: 07/09/2020 FINAL DIAGNOSES: 1. Chronic obstructive pulmonary disease, resolved. 2. Respiratory failure, chronic on 1 L of oxygen and routine bronchodilators, oral steroids and supplemental oxygen. 3. Cancer of the lung, status post radiation with no evidence for recurrence. 4. Irritable bowel, stable on dicyclomine. 5. Fibromyalgia, stable on gabapentin. 6. Severe deconditioning, improved greatly. Able to maintain activities daily of living at this time with walker. HOSPITAL COURSE: The patient is a 70-year-old white female, well known to myself with long history of COPD with respiratory failure with chronic oxygen requirements and steroid requirements, who has had a recent exacerbation with inability to maintain ADLs and increased oxygen requirements and with subsequent severe deconditioning and therefore is admitted to [facility] after acute care admission and stabilization of her COPD for PT and OT. She has slowly increased her strength to the point that she is improved from bedridden status and total care to being able to maintain ADLs, walking in the franklin in the bathroom with a walker. Her oxygen requirement has increased from 2 to 3 L to 1 L and her oral steroids have been decreased from 40 mg to 20 mg to 10 mg and she is maintaining on this. She is eating well, sleeping well with decreased anxiety, depression. She has stable irritable bowel, on dicyclomine and stable fibromyalgia, on gabapentin. PHYSICAL EXAMINATION: VITAL SIGNS: On discharge, stable with a temperature of 98, pulse 96, respirations 18, O2 sats 99% on 1 L, blood pressure 121/64. LUNGS: Show a markedly decreased breath sounds with no wheezes or rhonchi. Lungs are clear. ABDOMEN: Soft, nontender. LABORATORY DATA: Hemoglobin 9.9, hematocrit 31, white count 6700. Sodium 134, potassium 3.5, chloride 95, bicarb 30, BUN 8, creatinine 0.63, total protein 5.6, albumin 3.5, globulin 2.1. MEDICATIONS: She will be discharged home on her medications of: 1. Tylenol as needed. 2. Alprazolam 0.25 three times daily. 3. Atorvastatin 20 nightly. 4. Pulmicort 0.5 mg nebulizer twice daily. 5. Citalopram 10 mg daily. 6. Dicyclomine 20 mg twice daily. 7. Fluticasone inhaler once daily. 8. Gabapentin 200 mg at morning and afternoon and 300 mg at night. 9. Robaxin 500 mg 4 times daily. 10. Metoprolol 25 mg twice daily. 11. Pantoprazole 40 mg daily. 12. Prednisone 10 mg daily. 13. Anoro inhaler one puff daily. 14. Handheld nebulizer with DuoNebs every 6 hours. FOLLOWUP: She will follow up with ourself in 1 week for transition of care. Her prognosis is still guarded and she and the family understand this. Job ID: [id number]
== END 2020-07-09 13:30 | disposition home health service (06) | DRG 191 ==
LOC: NAV ACUTE 13:39
PROVIDERS: ADMIT Internal Medicine; ATTEND Internal Medicine
DX: J44.1 Chronic obstructive pulmonary disease with (acute) exacerbation (principal); J96.10 Chronic respiratory failure, unspecified whether with hypoxia or hypercapnia; R53.81 Other malaise; G89.29 Other chronic pain; M54.9 Dorsalgia, unspecified; F41.9 Anxiety disorder, unspecified; I25.10 Atherosclerotic heart disease of native coronary artery without angina pectoris; I10 Essential (primary) hypertension; M79.7 Fibromyalgia; K58.9 Irritable bowel syndrome, unspecified; M51.36 Other intervertebral disc degeneration, lumbar region; F32.9 Major depressive disorder, single episode, unspecified; Z95.5 Presence of coronary angioplasty implant and graft; Z90.49 Acquired absence of other specified parts of digestive tract; Z92.3 Personal history of irradiation; Z87.891 Personal history of nicotine dependence; Z85.118 Personal history of other malignant neoplasm of bronchus and lung; Z90.710 Acquired absence of both cervix and uterus; Z74.01 Bed confinement status
CPT/HCPCS: 71045; 80053; 81001; 85025; 94640; J7512; J7611; J7620; J7626

== ENCOUNTER 2020-08-08 15:57 | Inpatient (IN) | payer MEDICARE, BC ==
[2020-08-08 16:31] VITALS: BMI 26.3
[2020-08-08] MEDS: Budesonide 0.5 MG/2 ML NEB NEB SCH (19:19)
[2020-08-08] MEDS: guaiFENesin ER 600 MG TAB PO SCH (21:24)
[2020-08-08] MEDS: Atorvastatin Calcium 20 MG TAB PO SCH (21:24)
[2020-08-08] MEDS: Gabapentin 300 MG CAP PO SCH (21:24)
[2020-08-08] MEDS: Dicyclomine 10 MG CAP PO SCH (21:24)
[2020-08-08] MEDS: Simethicone Chewable 80 MG TAB PO SCH (21:25)
[2020-08-08] MEDS: Metoprolol Tartrate 25 MG TAB PO SCH (21:25)
[2020-08-08] MEDS: Methocarbamol 500 MG TAB PO PRN (21:30)
[2020-08-08] MEDS: ALPRAZolam 0.25 MG TAB PO PRN (21:30)
--- NOTE | 2020-08-08 21:59 | HP ---
PRINCIPAL DIAGNOSES: Chronic obstructive pulmonary disease exacerbation and deconditioning for physical therapy. BRIEF HISTORY: This is a pleasant 70-year-old female, who was admitted to [facility] in [place] with cough and shortness of breath. She diagnosed with acute on chronic hypoxic hypercapnic respiratory failure likely secondary to COPD exacerbation. She admitted on BiPAP, but has been slowly tapered down and is currently on 2 L of nasal cannula, which is what she does at home. She finished 5 days of azithromycin. She apparently was started on Solu-Medrol b.i.d. after finishing a 5-day course of prednisone due to persistent shortness of breath. This was on 08/06. She has been now tapered off to oral steroids, but the plan is for her to be on 80 mg daily for 5 days, then 40 mg daily for 5 days, then 20 mg daily for 3 days, then she will go back with her usual dose of 10 mg daily. Currently, she states that she feels tired today, but she had a great day yesterday. Denies any chest pain or shortness of breath. Denies any fever or chills. PAST MEDICAL HISTORY: 1. Chronic obstructive pulmonary disease. 2. Chronic hypoxemic respiratory failure. 3. Irritable bowel syndrome. 4. Fibromyalgia. 5. History of lung cancer, status post radiation, now in remission. 6. Coronary artery disease. 7. Dyslipidemia. 8. Hypertension. 9. Anxiety. 10. Macrocytic anemia likely due to folic acid deficiency. PAST SURGICAL HISTORY: 1. Coronary artery stenting. 2. Partial hysterectomy. 3. Appendectomy. 4. Cholecystectomy. PSYCHOSOCIAL HISTORY: More than [id number] history of smoking. She quit 7 years ago. Denies any alcohol or recreational drug abuse. Lives with her . FAMILY HISTORY: Noncontributory to current admission. ALLERGIES: TO OFLOXACIN; PENICILLIN; SERTRALINE, BUT SHE CAN TAKE CELEXA; CHLORPROMAZINE; AND PREGABALIN, BUT SHE CAN TAKE GABAPENTIN. MEDICATIONS: She has been transferred here on the following medications: 1. Tylenol 650 mg p.o. q.4 p.r.n. 2. DuoNeb q.6 scheduled. 3. Xanax 0.25 mg p.o. t.i.d. scheduled. 4. Lipitor 20 mg at bedtime. 5. Pulmicort 0.25 mg nebulizer b.i.d. 6. Celexa 10 mg daily. 7. Bentyl 20 mg b.i.d. 8. Flonase 1 spray to each nostril daily. 9. Folic acid 1 mg daily. 10. Gabapentin 300 mg at bedtime and 200 mg at 9 o'clock and 3 o'clock. 11. Guaifenesin 1200 mg b.i.d. 12. Robaxin 500 mg q.i.d. p.r.n. 13. Lopressor 25 mg b.i.d. 14. Anoro Ellipta one puff daily. 15. Protonix 40 mg daily. 16. Simethicone 80 mg t.i.d. REVIEW OF SYSTEMS: CARDIOVASCULAR SYSTEM: Denies any chest pain, improving shortness of diet. Denies any palpitations, PND, orthopnea, or pedal edema. GENERAL: She denies any fever, chills, improving fatigue. RESPIRATORY SYSTEM: Occasional cough, improving shortness of breath. Denies any hemoptysis or pleuritic-type chest pain. GASTROINTESTINAL SYSTEM: Denies any nausea, vomiting, diarrhea, constipation, hematemesis, melena, hematochezia. GENITOURINARY SYSTEM: Denies any frequency, urgency, dysuria, hematuria. CENTRAL NERVOUS SYSTEM: Generalized weakness, otherwise nonfocal. Denies any fainting spells. MUSCULOSKELETAL SYSTEM: Frequent joint pain. SKIN: Denies any rash. HEENT: Denies any changes with vision, hearing, or swallowing. PHYSICAL EXAMINATION: GENERAL: Pleasant 70-year-old female, who is up in bed and denies any complaints. She is alert, awake, and oriented x3. She is not in any distress. VITAL SIGNS: She is afebrile. Heart rate 94, respirations 18, oxygen saturation 99% on 2 L, and blood pressure 143/90. HEENT: Normocephalic and atraumatic. Pupils equally reactive to light and accommodation. No JVD, thyromegaly, cervical adenopathy, or throat exudates. No carotid bruits. She does have steroid facies. CARDIOVASCULAR SYSTEM: S1-S2 plus. Rate and rhythm regular. RESPIRATORY SYSTEM: Normal vesicular breath sounds with scattered rhonchi and occasional wheeze. Prolonged expiratory phase. Decreased air entry in the bases. ABDOMEN: Soft, obese, nontender. Bowel sounds heard in all quadrants. EXTREMITIES: Without cyanosis or clubbing. Trace edema. Peripheral pulses are palpable. CENTRAL NERVOUS SYSTEM: Awake and responsive. Cranial nerves 2 through 12 intact. Grossly nonfocal. LABORATORY VALUES: Pending. IMPRESSION: 1. Chronic obstructive pulmonary disease exacerbation, which has since resolved. 2. Resolved acute on chronic hypoxemic respiratory failure. 3. Chronic hypoxemic respiratory failure. 4. Hypertension. 5. Dyslipidemia. 6. Coronary artery disease. 7. Fibromyalgia. 8. Irritable bowel syndrome. 9. Depression and anxiety. 10. Deconditioning. 11. Macrocytosis, likely due to folic acid deficient. PLAN: 1. Continue current medications. 2. Heart healthy diet. 3. Monitor respiratory status and breathing treatments as needed. 4. DVT prophylaxis with PlexiPulses. 5. Decubitus precautions. 6. Stress ulcer prophylaxis. 7. PT/OT eval and treat. 8. Check CBC, CMP in the morning. 9. Continue home medications. 10. Discussed with patient in detail and all questions answered. Job ID: [id number]
[2020-08-09 05:32] LABS: #Basophils 0.1 thou/uL (0.0-0.2); #Monocytes 1.2 thou/uL (0.11-0.59); #Neutrophils 8.6 thou/uL (1.40-6.50); %Basophils 0.9 % (0.0-1.0); %Lymphocytes 9.1 % (21.0-51.0); %Monocytes 10.6 % (0.0-10.0); %Neutrophils 79.3 % (42.0-75.0); Mean Corpuscular HGB CONC 32.4 g/dL (32.0-36.0); Mean Corpuscular Hemoglobin 31.7 pg (27.0-31.0); Platelet Count 390 thou/uL (130-400); RBC Distribution Width 12.2 % (11.5-14.5); Red Blood Cell (RBC) Count 3.77 mill/uL (4.20-5.40); White Blood Cell (WBC) Count 10.8 thou/uL (4.8-10.8)
[2020-08-09 05:49] LABS: ALT (SGPT) 11 U/L (8-55); AST (SGOT) 9 U/L (5-34); Albumin 4.1 g/dL (3.4-4.8); Alkaline Phosphatase 76 U/L (40-110); Anion Gap 13 mmol/L (10-20); BUN (Urea Nitrogen) 16 mg/dL (9.8-20.1); Bilirubin, Total 0.5 mg/dL (0.2-1.2); Calc. Creatinine Clearance 66 mL/min (70-130); Calcium 9.3 mg/dL (7.8-10.44); Carbon Dioxide 27 mmol/L (23-31); Chloride 95 mmol/L (98-107); Estimated GFR-MDRD 73; Globulin 2.2 g/dL (2.4-3.5); Glucose 95 mg/dL (83-110); Potassium 3.8 mmol/L (3.5-5.1); Protein, Total 6.3 g/dL (6.0-8.3); Sodium 131 mmol/L (136-145)
[2020-08-09] MEDS: Budesonide 0.5 MG/2 ML NEB NEB SCH ×2 (05:57→18:25)
[2020-08-09] MEDS: Fluticasone Propionate Nasal Spray 16 gm Bottle NASAL SCH (08:24)
[2020-08-09] MEDS: Dicyclomine 10 MG CAP PO SCH ×2 (08:24→21:09)
[2020-08-09] MEDS: Citalopram 10 MG TAB PO SCH (08:24)
[2020-08-09] MEDS: Gabapentin 100 MG CAP PO SCH ×2 (08:25→14:41)
[2020-08-09] MEDS: guaiFENesin ER 600 MG TAB PO SCH ×2 (08:25→21:09)
[2020-08-09] MEDS: Folic Acid 1 MG TAB PO SCH (08:25)
[2020-08-09] MEDS: predniSONE 20 MG TAB PO SCH (08:26)
[2020-08-09] MEDS: Metoprolol Tartrate 25 MG TAB PO SCH ×2 (08:26→21:08)
[2020-08-09] MEDS: Simethicone Chewable 80 MG TAB PO SCH ×3 (08:26→21:09)
[2020-08-09] MEDS ORDERED: [UNRECOGNIZED DRUG - OTHER] INH SCH (09:00)
[2020-08-09] MEDS ORDERED: UMECLIDINIUM INH SCH (09:00)
[2020-08-09] MEDS ORDERED: VILANTEROL INH SCH (09:00)
[2020-08-09] MEDS: Methocarbamol 500 MG TAB PO PRN ×2 (09:38→21:09)
--- NOTE | 2020-08-09 09:40 | PRG ---
DATE OF SERVICE: SUBJECTIVE: Ms. Rivas is looking much more alert and rested. She apparently had a good night's sleep. She finished her breakfast. She denies any chest pain or shortness of breath. She is ready for therapy. OBJECTIVE: VITAL SIGNS: She is afebrile, heart rate 99, respirations 20, oxygen saturation 100% on 2 L of nasal cannula, blood pressure is 117/62. CARDIOVASCULAR: S1 and S2 plus. RESPIRATORY: Normal vesicular breath sounds with prolonged expiratory phase and decreased air entry in the bases. Scattered rhonchi. Occasional wheeze. ABDOMEN: Soft and nontender. Bowel sounds heard in all quadrants and obese. EXTREMITIES: Without cyanosis, clubbing. Trace edema. CENTRAL NERVOUS SYSTEM: Generalized weakness, otherwise nonfocal. LABORATORY VALUES: White count is 10.8, H and H are 12 and 37. Sodium 131, potassium 3.8, BUN and creatinine are 16 and 0.78. IMPRESSION: 1. Resolved acute on chronic hypoxemic respiratory failure. 2. Improving chronic obstructive pulmonary disease exacerbation. 3. Hyponatremia. 4. Fibromyalgia. 5. Irritable bowel syndrome. 6. Coronary artery disease. 7. Hypertension. 8. Dyslipidemia. 9. Depression and anxiety. PLAN: 1. Continue current medications. 2. Heart healthy diet. 3. Monitor respiratory status and breathing treatments as needed. 4. DVT prophylaxis with PlexiPulses. 5. Decubitus precautions. 6. Stress ulcer prophylaxis. 7. Physical therapy, PT and OT eval and treat. 8. Routine laboratory values. Job ID: [id number]
[2020-08-09] MEDS: Acetaminophen 325 MG TAB PO PRN (17:36)
[2020-08-09] MEDS: Gabapentin 300 MG CAP PO SCH (21:08)
[2020-08-09] MEDS: ALPRAZolam 0.25 MG TAB PO PRN (21:09)
[2020-08-09] MEDS: Atorvastatin Calcium 20 MG TAB PO SCH (21:09)
[2020-08-10] MEDS: Budesonide 0.5 MG/2 ML NEB NEB SCH ×2 (05:52→18:13)
[2020-08-10] MEDS: ALPRAZolam 0.25 MG TAB PO PRN ×2 (09:22→16:38)
[2020-08-10] MEDS: Methocarbamol 500 MG TAB PO PRN ×2 (09:22→21:10)
[2020-08-10] MEDS: guaiFENesin ER 600 MG TAB PO SCH ×2 (09:23→21:10)
[2020-08-10] MEDS: Simethicone Chewable 80 MG TAB PO SCH ×3 (09:24→21:10)
[2020-08-10] MEDS: predniSONE 20 MG TAB PO SCH (09:24)
[2020-08-10] MEDS: Citalopram 10 MG TAB PO SCH (09:24)
[2020-08-10] MEDS: Metoprolol Tartrate 25 MG TAB PO SCH ×2 (09:25→21:10)
[2020-08-10] MEDS: Folic Acid 1 MG TAB PO SCH (09:25)
[2020-08-10] MEDS: Fluticasone Propionate Nasal Spray 16 gm Bottle NASAL SCH (09:26)
[2020-08-10] MEDS: Gabapentin 100 MG CAP PO SCH ×2 (09:28→16:37)
[2020-08-10] MEDS: Dicyclomine 10 MG CAP PO SCH ×2 (09:28→21:10)
--- NOTE | 2020-08-10 15:53 | PRG ---
DATE OF SERVICE: 08/10/2020 SUBJECTIVE: Ms. Rivas is doing well. She apparently had a night nap after lunch. She is happy with her progress. Denies any new issues with breathing. OBJECTIVE: VITAL SIGNS: She is afebrile. Heart rate 86, respirations 22, oxygen saturation 99% on 2 L via nasal cannula, and blood pressure 115/78. CARDIOVASCULAR SYSTEM: S1 and S2 plus. RESPIRATORY SYSTEM: Normal vesicular breath sounds. ABDOMEN: Soft and nontender. Bowel sounds heard in all quadrants. EXTREMITIES: Without cyanosis or clubbing. Peripheral pulses are palpable. CENTRAL NERVOUS SYSTEM: Generalized weakness, otherwise nonfocal. IMPRESSION: 1. Chronic hypoxemic respiratory failure. 2. Resolving chronic obstructive pulmonary disease exacerbation. 3. Fibromyalgia. 4. Coronary artery disease. 5. Hypertension. 6. Dyslipidemia. 7. Depression and anxiety. 8. Deconditioning. PLAN: 1. Continue current medications. 2. Heart healthy diet. 3. Monitor blood pressure and adjust medications as needed. 4. Monitor respiratory status and breathing treatments as needed. 5. DVT prophylaxis with PlexiPulses. 6. Decubitus precaution. 7. Stress ulcer prophylaxis. 8. Continue therapy. 9. Routine laboratory values. Job ID: [id number]
[2020-08-10] MEDS: Gabapentin 300 MG CAP PO SCH (21:10)
[2020-08-10] MEDS: Atorvastatin Calcium 20 MG TAB PO SCH (21:10)
[2020-08-11] MEDS: Budesonide 0.5 MG/2 ML NEB NEB SCH ×2 (05:31→18:06)
[2020-08-11] MEDS: guaiFENesin ER 600 MG TAB PO SCH ×2 (09:21→21:12)
[2020-08-11] MEDS: Dicyclomine 10 MG CAP PO SCH ×2 (09:21→21:12)
[2020-08-11] MEDS: Folic Acid 1 MG TAB PO SCH (09:22)
[2020-08-11] MEDS: predniSONE 20 MG TAB PO SCH (09:22)
[2020-08-11] MEDS: Simethicone Chewable 80 MG TAB PO SCH ×3 (09:22→21:12)
[2020-08-11] MEDS: Citalopram 10 MG TAB PO SCH (09:23)
[2020-08-11] MEDS: Gabapentin 100 MG CAP PO SCH ×2 (09:23→15:33)
[2020-08-11] MEDS: Methocarbamol 500 MG TAB PO PRN ×2 (09:24→21:12)
[2020-08-11] MEDS: Fluticasone Propionate Nasal Spray 16 gm Bottle NASAL SCH (09:24)
[2020-08-11] MEDS: Metoprolol Tartrate 25 MG TAB PO SCH ×2 (09:24→21:12)
[2020-08-11] MEDS: ALPRAZolam 0.25 MG TAB PO PRN ×2 (09:25→15:33)
--- NOTE | 2020-08-11 16:35 | PRG ---
DATE OF SERVICE: 08/11/2020 SUBJECTIVE: Ms. Rivas is up in bed. She is noticing some stiffness in her back. She denies any chest pain or shortness of breath. She apparently was sitting in a chair for a while ambulate. OBJECTIVE: VITAL SIGNS: She is afebrile, heart rate 88, respirations 20, oxygen saturation 100% on 2 L nasal cannula, and blood pressure 128/74. CARDIOVASCULAR SYSTEM: S1 and S2 plus. RESPIRATORY SYSTEM: Normal vesicular breath sounds. ABDOMEN: Soft, nontender. Bowel sounds heard in all quadrants. EXTREMITIES: Without cyanosis or clubbing. CENTRAL NERVOUS SYSTEM: Generalized weakness, otherwise nonfocal. IMPRESSION: 1. Chronic obstructive pulmonary disease exacerbation. 2. Resolved acute on chronic hypoxemic respiratory failure. 3. Coronary artery disease. 4. Hypertension. 5. Dyslipidemia. 6. Depression and anxiety. 7. Deconditioning. PLAN: 1. Continue current medications. 2. Heart-healthy diet. 3. Monitor blood pressure and adjust medications as needed. 4. Monitor respiratory status and breathing treatments as needed. 5. DVT prophylaxis with PlexiPulses. 6. Decubitus precaution. 7. Stress ulcer prophylaxis. 8. Physical therapy. 9. Routine laboratory values. Job ID: [id number]
[2020-08-11] MEDS: Gabapentin 300 MG CAP PO SCH (21:12)
[2020-08-11] MEDS: Atorvastatin Calcium 20 MG TAB PO SCH (21:12)
[2020-08-12] MEDS: Budesonide 0.5 MG/2 ML NEB NEB SCH ×2 (05:42→18:40)
[2020-08-12] MEDS: Fluticasone Propionate Nasal Spray 16 gm Bottle NASAL SCH (10:06)
[2020-08-12] MEDS: predniSONE 20 MG TAB PO SCH (10:07)
[2020-08-12] MEDS: Folic Acid 1 MG TAB PO SCH (10:08)
[2020-08-12] MEDS: Metoprolol Tartrate 25 MG TAB PO SCH ×2 (10:08→20:42)
[2020-08-12] MEDS: Dicyclomine 10 MG CAP PO SCH ×2 (10:08→20:42)
[2020-08-12] MEDS: Gabapentin 100 MG CAP PO SCH ×2 (10:08→14:45)
[2020-08-12] MEDS: Citalopram 10 MG TAB PO SCH (10:08)
[2020-08-12] MEDS: guaiFENesin ER 600 MG TAB PO SCH ×2 (10:09→20:41)
[2020-08-12] MEDS: Simethicone Chewable 80 MG TAB PO SCH ×3 (10:13→20:44)
--- NOTE | 2020-08-12 13:51 | PRG ---
DATE OF SERVICE: 08/12/2020 SUBJECTIVE: Ms. Rivas is up in her chair, eating lunch. She apparently walked twice around the nurse's station. She is noticing some pain, but the medications are helping. Denies any chest pain or shortness of breath. No family at bedside. Discussed with nursing. OBJECTIVE: VITAL SIGNS: She is afebrile. Heart rate 86, respirations 22, oxygen saturation 100% on 2 L nasal cannula, blood pressure is 112/68. CARDIOVASCULAR: S1 and S2 plus. RESPIRATORY: Normal vesicular breath sounds with occasional rhonchi. ABDOMEN: Soft, nontender. Bowel sounds heard in all quadrants. EXTREMITIES: Without cyanosis or clubbing. Trace pedal edema. CENTRAL NERVOUS SYSTEM: Generalized weakness, otherwise nonfocal. IMPRESSION: 1. Resolved acute on chronic hypoxemic respiratory failure. 2. Chronic obstructive pulmonary disease. 3. Coronary artery disease. 4. Hypertension. 5. Dyslipidemia. 6. Depression and anxiety. 7. Deconditioning. PLAN: 1. Continue current medications. 2. Heart healthy diet. 3. Monitor respiratory status and breathing treatments as needed. 4. Monitor blood pressure and adjust medications as needed. 5. DVT prophylaxis with PlexiPulses. 6. Decubitus precaution. 7. Stress ulcer prophylaxis. 8. Physical therapy. 9. Routine laboratory values. Job ID: [id number]
[2020-08-12] MEDS: Acetaminophen 325 MG TAB PO PRN (14:45)
[2020-08-12] MEDS: ALPRAZolam 0.25 MG TAB PO PRN (20:42)
[2020-08-12] MEDS: Gabapentin 300 MG CAP PO SCH (20:42)
[2020-08-12] MEDS: Methocarbamol 500 MG TAB PO PRN (20:42)
[2020-08-12] MEDS: Atorvastatin Calcium 20 MG TAB PO SCH (20:42)
[2020-08-13] MEDS: Acetaminophen 325 MG TAB PO PRN (02:04)
[2020-08-13] MEDS: Budesonide 0.5 MG/2 ML NEB NEB SCH ×2 (05:38→17:59)
[2020-08-13] MEDS: Fluticasone Propionate Nasal Spray 16 gm Bottle NASAL SCH (08:39)
[2020-08-13] MEDS: Dicyclomine 10 MG CAP PO SCH ×2 (08:39→20:55)
[2020-08-13] MEDS: Methocarbamol 500 MG TAB PO PRN (08:40)
[2020-08-13] MEDS: Simethicone Chewable 80 MG TAB PO SCH ×3 (08:40→20:54)
[2020-08-13] MEDS: guaiFENesin ER 600 MG TAB PO SCH ×2 (08:40→20:56)
[2020-08-13] MEDS: Gabapentin 100 MG CAP PO SCH ×2 (08:40→15:33)
[2020-08-13] MEDS: Folic Acid 1 MG TAB PO SCH (08:41)
[2020-08-13] MEDS: predniSONE 20 MG TAB PO SCH (08:41)
[2020-08-13] MEDS: Citalopram 10 MG TAB PO SCH (08:41)
[2020-08-13] MEDS: Metoprolol Tartrate 25 MG TAB PO SCH ×2 (08:41→20:56)
--- NOTE | 2020-08-13 14:21 | PRG ---
DATE OF SERVICE: 08/13/2020 SUBJECTIVE: Ms. Rivas is doing well. She apparently had her oxygen off for a little bit at a time by accident and she noticed some shortness of breath. She is doing well otherwise. She participated with therapy. No concerns or questions. No family at bedside. OBJECTIVE: VITAL SIGNS: She is afebrile. Heart rate 92, respirations 24, oxygen saturation 100% on 2 L, blood pressure 101/68. CARDIOVASCULAR: S1 and S2 plus. RESPIRATORY: Normal vesicular breath sounds. ABDOMEN: Soft, nontender. Bowel sounds heard in all quadrants. EXTREMITIES: Without cyanosis or clubbing. Trace edema. CENTRAL NERVOUS SYSTEM: Improving deconditioning. IMPRESSION: 1. Resolved acute on chronic respiratory failure with hypoxemia. 2. Chronic hypoxemic respiratory failure. 3. Coronary artery disease. 4. Hypertension. 5. Dyslipidemia. 6. Depression and anxiety. 7. Deconditioning, improving. 8. Chronic obstructive pulmonary disease. PLAN: 1. Continue current medications. 2. Nutritional support with heart healthy diet. 3. Monitor blood pressure and adjust medications as needed. 4. Monitor respiratory status and breathing treatments as needed. 5. DVT prophylaxis with PlexiPulses. 6. Decubitus precaution. 7. Physical therapy. 8. Routine laboratory values. Job ID: [id number]
[2020-08-13] MEDS: Gabapentin 300 MG CAP PO SCH (20:54)
[2020-08-13] MEDS: Atorvastatin Calcium 20 MG TAB PO SCH (20:55)
[2020-08-13] MEDS: ALPRAZolam 0.25 MG TAB PO PRN (20:56)
[2020-08-14] MEDS: Budesonide 0.5 MG/2 ML NEB NEB SCH ×2 (05:46→18:05)
[2020-08-14] MEDS: Fluticasone Propionate Nasal Spray 16 gm Bottle NASAL SCH (09:20)
[2020-08-14] MEDS: Methocarbamol 500 MG TAB PO PRN ×2 (09:20→20:48)
[2020-08-14] MEDS: Dicyclomine 10 MG CAP PO SCH ×2 (09:21→20:47)
[2020-08-14] MEDS: guaiFENesin ER 600 MG TAB PO SCH ×2 (09:21→20:49)
[2020-08-14] MEDS: predniSONE 20 MG TAB PO SCH (09:21)
[2020-08-14] MEDS: Metoprolol Tartrate 25 MG TAB PO SCH ×2 (09:22→20:48)
[2020-08-14] MEDS: Folic Acid 1 MG TAB PO SCH (09:22)
[2020-08-14] MEDS: Citalopram 10 MG TAB PO SCH (09:22)
[2020-08-14] MEDS: Simethicone Chewable 80 MG TAB PO SCH ×3 (09:22→20:47)
[2020-08-14] MEDS: Gabapentin 100 MG CAP PO SCH ×2 (09:22→15:05)
--- NOTE | 2020-08-14 13:08 | PRG ---
DATE OF SERVICE: 08/14/2020 SUBJECTIVE: Ms. Rivas is doing well. Denies any complaints. She has been moved up to 143. Therapy states that she has reached maximum improvement and so plan is for her to go home tomorrow. She states the only prescription needs is for the prednisone taper. She uses [facility] at [facility]. She also uses [facility]. OBJECTIVE: VITAL SIGNS: She is afebrile, heart rate 92, respirations 20, oxygen saturation 100% on 2 L, and blood pressure 121/82. CARDIOVASCULAR: S1 and S2 plus. RESPIRATORY: Normal vesicular breath sounds. ABDOMEN: Soft and nontender. Bowel sounds heard in all quadrants. EXTREMITIES: Without cyanosis or clubbing. CENTRAL NERVOUS SYSTEM: Generalized weakness, otherwise nonfocal. IMPRESSION: 1. Chronic obstructive pulmonary disease, well controlled. 2. Resolved chronic obstructive pulmonary disease exacerbation. 3. Resolved acute on chronic hypoxemic respiratory failure. 4. Coronary artery disease. 5. Hypertension. 6. Dyslipidemia. 7. Deconditioning. 8. Depression and anxiety. PLAN: 1. Continue current medications. Nutritional support with heart healthy diet. 1. Contact Case Management to arrange [facility], the patient has had it before. 2. DVT prophylaxis with PlexiPulses. 3. Decubitus precautions. 4. Stress ulcer prophylaxis. 5. send in her prednisone prescription to [facility] at [facility], she is on 40 mg once daily until and then 20 mg once daily from the through the and after that, it will be 10 mg once daily until she follows up with her home improvement installer. For full details, please see chart. Job ID: [id number]
[2020-08-14] MEDS: Acetaminophen 325 MG TAB PO PRN (20:47)
[2020-08-14] MEDS: Atorvastatin Calcium 20 MG TAB PO SCH (20:48)
[2020-08-14] MEDS: Gabapentin 300 MG CAP PO SCH (20:48)
[2020-08-14] MEDS: ALPRAZolam 0.25 MG TAB PO PRN (20:48)
[2020-08-15] MEDS: Budesonide 0.5 MG/2 ML NEB NEB SCH (06:10)
[2020-08-15 08:15] VITALS: BP 142/69; TEMP 97
[2020-08-15] MEDS: Fluticasone Propionate Nasal Spray 16 gm Bottle NASAL SCH (08:49)
[2020-08-15] MEDS: Dicyclomine 10 MG CAP PO SCH (08:49)
[2020-08-15] MEDS: Simethicone Chewable 80 MG TAB PO SCH (08:50)
[2020-08-15] MEDS: Citalopram 10 MG TAB PO SCH (08:50)
[2020-08-15] MEDS: predniSONE 20 MG TAB PO SCH (08:50)
[2020-08-15] MEDS: guaiFENesin ER 600 MG TAB PO SCH (08:50)
[2020-08-15] MEDS: Metoprolol Tartrate 25 MG TAB PO SCH (08:50)
[2020-08-15] MEDS: Gabapentin 100 MG CAP PO SCH (08:50)
[2020-08-15] MEDS: Folic Acid 1 MG TAB PO SCH (08:51)
[2020-08-15] MEDS: Methocarbamol 500 MG TAB PO PRN (08:55)
--- NOTE | 2020-08-15 23:32 | DIS ---
DATE OF ADMISSION: 08/08/2020 DATE OF DISCHARGE: 08/15/2020 PRINCIPAL DIAGNOSIS: Resolved exacerbation of chronic obstructive pulmonary disease. SECONDARY DIAGNOSES: 1. Resolved acute on chronic hypoxemic respiratory failure. 2. Stable chronic hypoxemic respiratory failure. 3. Dyslipidemia. 4. Depression and anxiety. 5. Improved deconditioning. 6. Irritable bowel syndrome. 7. Fibromyalgia. 8. Coronary artery disease. 9. Hypertension. COMPLICATIONS: None. ADVERSE REACTIONS: None. PROCEDURES: None. CONSULTATIONS: Physical Therapy and Occupational Therapy. HOSPITAL COURSE: The patient was admitted on 08/08 after being at [facility] in [place] with acute on chronic hypoxemic respiratory failure and COPD exacerbation. She has responded well to therapy. She is tolerating her taper of prednisone. She was deemed to have reached her baseline and ready to go home. She has [facility] which Case Management is going to inform to resume her care. She states now she also needs a refill on her muscle relaxant and her gas pill. Apparently, Dr. Haq has prescribed it from the office, so I told her I will do refills from the office including her prednisone taper. DISCHARGE PHYSICAL EXAMINATION: VITAL SIGNS: On the day of discharge, she is afebrile, heart rate 95, respirations 20, oxygen saturation 100% on room air, blood pressure is 142/69. CARDIOVASCULAR SYSTEM: S1-S2 plus. RESPIRATORY SYSTEM: Normal vesicular breath sounds. ABDOMEN: Soft, nontender. Bowel sounds heard in all quadrants. EXTREMITIES: Without cyanosis or clubbing. CENTRAL NERVOUS SYSTEM: Generalized weakness, otherwise nonfocal. DISCHARGE MEDICATIONS: Same as admission: 1. Tylenol 650 q.4h p.r.n. 2. DuoNeb 3 mL q.6 p.r.n. 3. Xanax 0.25 mg t.i.d. p.r.n. 4. Lipitor 20 mg at bedtime. 5. Pulmicort nebulizer b.i.d., gargle after use. 6. Celexa 10 mg daily. 7. Bentyl 20 mg b.i.d. 8. Flonase 1 spray to each nostril daily. 9. Folic acid 1 mg daily. 10. Neurontin 300 mg at bedtime and 200 mg at 9:00 a.m. and 3:00 p.m. 11. Guaifenesin 1200 mg b.i.d. 12. Robaxin 500 mg b.i.d. p.r.n. 13. Lopressor 25 mg b.i.d. 14. Protonix 40 mg daily. 15. Simethicone 80 mg t.i.d. 16. Prednisone taper. She is on 40 mg daily until the and then 20 mg daily from the through the 14th and after that, it is 10 mg daily until she follows up with her PCP. DIET: Heart healthy diet. ACTIVITY: As tolerated. FOLLOWUP: She is to follow up with Dr. Haq in 2 weeks. She is to follow up with Pulmonary for their recommendation. She is to call us with any questions or concerns. Also please use this dictation as a [id number] for her home health. The patient is homebound. She has been advised not to drive. She has need for continued therapy at home. She also needs penitentiary visits to monitor her respiratory status given that she is just recovering from her COPD exacerbation and she has chronic hypoxemic respiratory failure. For full details, please see chart. Total time spent on this discharge, 35 minutes. Job ID: [id number]
[2020-08-19] MEDS ORDERED: predniSONE 20 MG TAB PO SCH (09:00)
== END 2020-08-15 12:19 | disposition home health service (06) | DRG 191 ==
LOC: NAV ACUTE 15:57
PROVIDERS: ADMIT Internal Medicine; ATTEND Internal Medicine
DX: J44.1 Chronic obstructive pulmonary disease with (acute) exacerbation (principal); J96.11 Chronic respiratory failure with hypoxia; E87.1 Hypo-osmolality and hyponatremia; E78.5 Hyperlipidemia, unspecified; F32.9 Major depressive disorder, single episode, unspecified; F41.9 Anxiety disorder, unspecified; R53.81 Other malaise; K58.9 Irritable bowel syndrome, unspecified; I25.10 Atherosclerotic heart disease of native coronary artery without angina pectoris; I10 Essential (primary) hypertension; M79.7 Fibromyalgia; D75.89 Other specified diseases of blood and blood-forming organs; Z85.118 Personal history of other malignant neoplasm of bronchus and lung; Z92.3 Personal history of irradiation; Z95.5 Presence of coronary angioplasty implant and graft; Z90.711 Acquired absence of uterus with remaining cervical stump; Z90.49 Acquired absence of other specified parts of digestive tract; Z87.891 Personal history of nicotine dependence; Z88.0 Allergy status to penicillin; Z88.1 Allergy status to other antibiotic agents; Z88.8 Allergy status to other drugs, medicaments and biological substances
CPT/HCPCS: 80053; 85025; 94640; J7512; J7620; J7626

== ENCOUNTER 2020-08-22 11:46 | Inpatient (IN) | payer MEDICARE, BC, OTHER ==
[~2020-08-22 11:46] MED LIST: Iopamidol 370 76% 100 ML VIAL ONE
--- NOTE | 2020-08-22 12:20 | RAD ---
Chest one view HISTORY: Chest pain. COMPARISON: 08/08/2020. FINDINGS: Cardiac silhouette is magnified by projection. Patient slightly rotated rightward. Calcification of the aorta. Lungs remain slightly hyperinflated. Pulmonary vasculature are unremarkable. No lobar consolidation or evidence of pneumothorax. Linear scarring at the right apex stable. Old rig ht lateral lower rib fractures evident. IMPRESSION : Hyperinflation and other Chronic-type findings are stable. No active cardiopulmonary abnormalities ar e demonstrated.
[2020-08-22 12:31] LABS: #Basophils 0.1 thou/uL (0.0-0.2); #Lymphocytes 0.5 thou/uL (1.20-3.40); #Monocytes 0.7 thou/uL (0.11-0.59); #Neutrophils 16.8 thou/uL (1.40-6.50); %Basophils 0.7 % (0.0-1.0); %Eosinophils 0.1 % (0.0-10.0); %Lymphocytes 2.8 % (21.0-51.0); %Monocytes 3.9 % (0.0-10.0); %Neutrophils 92.5 % (42.0-75.0); Hemoglobin 10.7 g/dL (12.0-16.0); Mean Corpuscular Hemoglobin 31.6 pg (27.0-31.0); Mean Corpuscular Volume 98.7 fL (78.0-98.0); Mean Platelet Volume 5.5 fL (7.4-10.4); Platelet Count 282 thou/uL (130-400); RBC Distribution Width 12.6 % (11.5-14.5); Red Blood Cell (RBC) Count 3.38 mill/uL (4.20-5.40); White Blood Cell (WBC) Count 18.2 thou/uL (4.8-10.8)
[2020-08-22 12:33] LABS: CK (CPK) 20 U/L (29-168); Lipase 21 U/L (8-78)
[2020-08-22 13:10] LABS: Bilirubin Negative (Negative); Blood, Urine Negative (Negative); Clarity Clear (Clear); Glucose, Urine (Dipstick) Negative (Negative); Ketone, Urine Trace mg/dL (Negative); Leukocyte Negative (Negative); Nitrite Negative (Negative); Protein, Urine (Dipstick) 30 mg/dL (Neg-Trace); Specific Gravity, Urine 1.025 (1.005-1.030); Urobilinogen 0.2 mg/dL (Less than 2); pH, Urine 5.5 (5.0-9.0)
[2020-08-22] MEDS ORDERED: Cyclobenzaprine 10 MG TAB ONE (13:17)
[2020-08-22] MEDS ORDERED: Acetaminophen 325 MG TAB ONE (13:17)
[2020-08-22 13:30] LABS: ALT (SGPT) 17 U/L (8-55); AST (SGOT) 15 U/L (5-34); Albumin 3.5 g/dL (3.4-4.8); Alkaline Phosphatase 72 U/L (40-110); Anion Gap 13 mmol/L (10-20); BUN (Urea Nitrogen) 12 mg/dL (9.8-20.1); Bilirubin, Total 0.4 mg/dL (0.2-1.2); Calc. Creatinine Clearance 0 mL/min (70-130); Calcium 8.6 mg/dL (7.8-10.44); Carbon Dioxide 30 mmol/L (23-31); Chloride 97 mmol/L (98-107); Estimated GFR-MDRD 80; Glucose 114 mg/dL (83-110); Potassium 4.2 mmol/L (3.5-5.1); Protein, Total 5.5 g/dL (6.0-8.3); Sodium 136 mmol/L (136-145)
[2020-08-22 13:52] LABS: Bacteria/HPF None Seen HPF (None Seen); RBC/HPF 0-3 HPF (0-3); WBC/HPF None Seen HPF (0-3)
--- NOTE | 2020-08-22 14:29 | CT ---
Exam: CT angiogram of the chest HISTORY: Chest pain. COMPARISON: 09/23/2018 Correlation: Noncontrast chest CT 07/23/2020 TECHNIQUE: CT angiogram of the chest is performed in the axial plane. Three-dimensional reformatted i mages are submitted for interpretation FINDINGS: Mediastinum: No mass, lymphadenopathy or hematoma. HEART: Normal size. No significant pericardial fluid. Aorta: No aneurysm or dissection Upper solid abdominal viscera: Stable bilateral adrenal gland hyperplasia. Trachea and central bronchi: Patent Pleural spaces: No effusion Lung parenchyma: Stable areas of scarring and atelectasis. Stable wedge-shaped opacity with irregular margination involving the lateral aspect of the right upper lobe. Stable pleural-based nodule adjacent to the medial right lower lobe. No new masses or suspicious nodules. Pneumothorax: None Osseous structures: No lytic or blastic lesions Pulmonary arteries: Adequate contrast opacification pulmonary arterial system to the level of segment al arteries. No filling defect to suggest pulmonary embolism IMPRESSION: 1. No evidence of pulmonary artery embolism to the level segmental arteries 2. Chronic changes in the right upper lobe.
[2020-08-22] MEDS ORDERED: predniSONE 20 MG TAB PO SCH (17:45)
[2020-08-22] MEDS: ALPRAZolam 0.25 MG TAB PO PRN (17:58)
[2020-08-22] MEDS: Methocarbamol 500 MG TAB PO PRN ×2 (17:58→21:04)
[2020-08-22] MEDS: Budesonide 0.5 MG/2 ML NEB NEB SCH (17:59)
[2020-08-22] MEDS: Dicyclomine 10 MG CAP PO SCH (21:04)
[2020-08-22] MEDS: Gabapentin 300 MG CAP PO SCH (21:04)
[2020-08-22] MEDS: Atorvastatin Calcium 20 MG TAB PO SCH (21:04)
[2020-08-22] MEDS: Simethicone Chewable 80 MG TAB PO SCH (21:04)
[2020-08-22] MEDS: Metoprolol Tartrate 25 MG TAB PO SCH (21:04)
[2020-08-22] MEDS: guaiFENesin ER 600 MG TAB PO SCH (21:04)
[2020-08-23] MEDS: Budesonide 0.5 MG/2 ML NEB NEB SCH ×2 (05:07→17:35)
[2020-08-23] MEDS ORDERED: Gabapentin 100 MG CAP PO SCH (09:00)
[2020-08-23] MEDS: guaiFENesin ER 600 MG TAB PO SCH ×2 (10:22→20:24)
[2020-08-23] MEDS: Fluticasone Propionate Nasal Spray 16 gm Bottle NASAL SCH (10:22)
[2020-08-23] MEDS: Folic Acid 1 MG TAB PO SCH (10:22)
[2020-08-23] MEDS: Simethicone Chewable 80 MG TAB PO SCH ×3 (10:22→20:24)
[2020-08-23] MEDS: Citalopram 20 MG TAB PO SCH (10:23)
[2020-08-23] MEDS: Dicyclomine 10 MG CAP PO SCH ×2 (10:23→20:23)
[2020-08-23] MEDS: Methocarbamol 500 MG TAB PO PRN ×3 (10:23→23:45)
[2020-08-23] MEDS: Metoprolol Tartrate 25 MG TAB PO SCH ×2 (10:23→20:24)
[2020-08-23] MEDS: predniSONE 20 MG TAB PO SCH (10:24)
[2020-08-23] MEDS: Gabapentin 300 MG CAP PO SCH ×3 (10:24→20:24)
[2020-08-23] MEDS: Acetaminophen 325 MG TAB PO PRN ×2 (10:24→15:53)
[2020-08-23 12:54] LABS: SARS-CoV-2 MS2 Positive; SARS-CoV-2 N Gene Negative; SARS-CoV-2 S Gene Negative; SARS-CoV-2 by NAA Not Detected (NotDetected); SARS-CoV-2 orf1ab Negative
[2020-08-23] MEDS: ALPRAZolam 0.25 MG TAB PO PRN ×2 (13:39→20:24)
[2020-08-23] MEDS: Atorvastatin Calcium 20 MG TAB PO SCH (20:24)
[2020-08-24] MEDS: Budesonide 0.5 MG/2 ML NEB NEB SCH ×2 (05:12→18:33)
--- NOTE | 2020-08-24 07:10 | HP ---
CHIEF COMPLAINT: Severe lower back pain and spasm. HISTORY OF PRESENT ILLNESS: The patient is an unfortunate 70-year-old white female, well known to myself with a long history of COPD, which has become steroid and oxygen-dependent, being followed by Dr. Alton Nur. She also has stage I lung cancer in remission, status post radiation and a long history of fibromyalgia with chronic back pain, muscle spasms, irritable bowel with recurrent diarrhea, hypertension, anxiety, and a distant history of coronary artery disease status post stent. She has recently been discharged from [facility], where she had admission for exacerbation of her COPD, required aggressive IV and nebulized bronchodilators and steroids and increased oxygen requirement shortly. She eventually also even required BiPAP and became very weakened and was admitted to the ICU, but did not require intubation. She eventually stabilized, but because of her weakened condition was transferred to [facility], was discharged home with home health care. However, when she returned home on August 20, she began to have severe back pain, which increased to the point she presented to the emergency room on August 22 with severe pain, inability to move without pain even with coughing. She had a chest and thorax CTA evaluating for pulmonary embolus or dissection, which showed no changes except for chronic changes in the right upper lobe. She was not found to have any evidence of infection, but did have a leukocytosis associated with her steroid therapy. Her respiratory status appeared to be stable on 2 L of oxygen. She was severely weak and unable to move with severe pain and therefore, is admitted to the hospital for pain relief. She has had problems in the past with sedation with narcotics because of her severe respiratory depression and has been taking only gabapentin and Robaxin for back pain with occasional need for a lidocaine patch. At present, she is taking Anoro inhaler, alprazolam 0.25 three times daily as needed, atorvastatin 20 mg daily, budesonide 0.25 nebulizer twice daily, citalopram 10 mg daily, dicyclomine 20 mg twice daily, fluticasone nasal spray daily, gabapentin 200 mg at 9 o'clock and 3 o'clock and 300 mg at night, Robaxin 500 mg four times daily, metoprolol 25 twice daily, pantoprazole 40 daily, simethicone 80 three times daily, and prednisone 20 mg daily. PAST MEDICAL HISTORY: As above in history of present illness. PAST SURGICAL HISTORY: Positive for cholecystectomy, hysterectomy, and appendectomy. SOCIAL HISTORY: She lives with her . She is a nondrinker. She stopped smoking 11 years ago. REVIEW OF SYSTEMS: HEENT: She denies headaches, dizziness, change in vision or hearing, hoarseness, or dysphagia. PULMONARY: Does have severe shortness of breath on minimal exertion. Has no chest pain except with cough. CARDIOVASCULAR: Denies chest pain, orthopnea, paroxysmal nocturnal dyspnea, or edema. GASTROINTESTINAL: She has recurrent diarrhea and constipation, but with no nausea or vomiting. She has been eating well. GENITOURINARY: She denies dysuria, hematuria, or nocturia. MUSCULOSKELETAL: She has the above-mentioned severe stiffness and pain in her back with any movement, palpable spasms. NEUROLOGIC: She denies localized numbness, weakness in arm or extremities. PHYSICAL EXAMINATION: GENERAL: The patient is an elderly white female, in no distress at rest, obviously cushingoid facies. She is oriented x3 and cooperative. VITAL SIGNS: Showed to have temperature 97.4, pulse 90, respirations 20, O2 sats 98% on 2 L, and blood pressure is 121/56. HEENT: Pupils are equal, round, and reactive to light and accommodation. Sclerae anicteric. Conjunctivae pale. Oral mucous membranes well hydrated. NECK: Supple. No nodes or masses. LUNGS: Show markedly decreased breath sounds with no rales or rhonchi. CARDIAC: Showed regular rhythm. No gallops or murmurs. ABDOMEN: Obese, diffusely tender with no masses or organomegaly. SKIN/EXTREMITIES: Show diffuse tenderness to palpation in the lower back with no edema. NEUROLOGIC: Intact. LABORATORY DATA: Shows sodium 136, potassium 4.2, chloride 97, bicarb 30, BUN 12, creatinine 0.72, glucose 114, calcium 8.6, total protein 5.5, globulin 2.0. White count 18,200, hematocrit 33, hemoglobin 10. Urinalysis within normal limits. Chest angiogram as above. ASSESSMENT: The patient is an unfortunate 70-year-old white female, well known to myself with a long history of chronic obstructive pulmonary disease with recent exacerbation and gradually deteriorating pulmonary function, now steroid and oxygen dependent, who also has complications of severe back spasms, fibromyalgia, and chronic pain, who has had an increase in her back spasms recently and has been unable to ambulate or move without severe pain. Because of her chronic obstructive pulmonary disease, she has had respiratory depression with narcotics, she is only able to take gabapentin and Robaxin. In the past, the Tramadol has not really helped. She is, therefore, admitted to the hospital for treatment with this and possibly with tramadol and a lidocaine patch. She will be continued on her pre-hospital bronchodilation with Anoro, prednisone, DuoNebs, supplemental oxygen. She will also be continued on treatment for irritable bowel, Bentyl, with good control of her blood pressure. She will have PT and OT consult, but hopefully she will be able to improve over the weekend to the point that she can do this, but because of her severe pain, will have an MRI as she is a high risk for osteoporosis and compression fracture possibly causing her pain. Job ID: [id number]
[2020-08-24] MEDS: Simethicone Chewable 80 MG TAB PO SCH ×3 (09:12→20:24)
[2020-08-24] MEDS: Dicyclomine 10 MG CAP PO SCH ×2 (09:12→20:24)
[2020-08-24] MEDS: Folic Acid 1 MG TAB PO SCH (09:12)
[2020-08-24] MEDS: guaiFENesin ER 600 MG TAB PO SCH ×2 (09:13→20:25)
[2020-08-24] MEDS: Metoprolol Tartrate 25 MG TAB PO SCH ×2 (09:13→20:25)
[2020-08-24] MEDS: Gabapentin 300 MG CAP PO SCH ×3 (09:13→20:24)
[2020-08-24] MEDS: predniSONE 20 MG TAB PO SCH (09:13)
[2020-08-24] MEDS: Citalopram 20 MG TAB PO SCH (09:14)
[2020-08-24] MEDS: Fluticasone Propionate Nasal Spray 16 gm Bottle NASAL SCH (09:15)
[2020-08-24] MEDS: Lidocaine 5% Patch TD SCH (09:15)
[2020-08-24] MEDS: Acetaminophen 325 MG TAB PO PRN ×2 (09:16→14:29)
[2020-08-24] MEDS: ALPRAZolam 0.25 MG TAB PO PRN (14:29)
[2020-08-24] MEDS: Methocarbamol 500 MG TAB PO PRN ×2 (14:29→20:25)
[2020-08-24] MEDS: Lidocaine Patch Removal TOP SCH (20:25)
[2020-08-24] MEDS: Atorvastatin Calcium 20 MG TAB PO SCH (20:25)
[2020-08-25] MEDS: Budesonide 0.5 MG/2 ML NEB NEB SCH ×2 (05:05→18:41)
--- NOTE | 2020-08-25 06:08 | PRG ---
DATE OF SERVICE: 08/24/2020 SUBJECTIVE: Ms. Rivas is resting in bed. She feels like the Lidoderm patch may be helping, still in significant pain. No family at bedside. OBJECTIVE: VITAL SIGNS: She is afebrile. Heart rate 88, respirations 17, oxygen saturation 96% on 2 L, blood pressure 122/64. CARDIOVASCULAR: S1, S2 plus. RESPIRATORY: Normal vesicular breath sounds. ABDOMEN: Soft, nontender. Bowel sounds heard in all quadrants. EXTREMITIES: Without cyanosis or clubbing. CENTRAL NERVOUS SYSTEM: Generalized weakness. IMPRESSION: 1. Low back pain and spasm, rule out neurological condition. She is scheduled for MRI on Wednesday. 2. Chronic obstructive pulmonary disease. 3. Chronic hypoxemic respiratory failure. 4. Coronary artery disease. 5. Depression and anxiety. 6. Gastroesophageal reflux disease. PLAN: 1. Continue current medications. 2. Heart healthy diet. 3. Monitor respiratory status. 4. DVT prophylaxis with PlexiPulses. 5. Decubitus precautions. 6. Stress ulcer prophylaxis. 7. Await MRI. 8. Continue therapy. Job ID: [id number]
[2020-08-25] MEDS: Gabapentin 300 MG CAP PO SCH ×3 (08:45→20:32)
[2020-08-25] MEDS: Dicyclomine 10 MG CAP PO SCH ×2 (08:45→20:32)
[2020-08-25] MEDS: Methocarbamol 500 MG TAB PO PRN ×3 (08:46→20:31)
[2020-08-25] MEDS: Lidocaine 5% Patch TD SCH (08:46)
[2020-08-25] MEDS: Citalopram 20 MG TAB PO SCH (08:46)
[2020-08-25] MEDS: guaiFENesin ER 600 MG TAB PO SCH ×2 (08:46→20:32)
[2020-08-25] MEDS: Metoprolol Tartrate 25 MG TAB PO SCH ×2 (08:46→20:32)
[2020-08-25] MEDS: Folic Acid 1 MG TAB PO SCH (08:46)
[2020-08-25] MEDS: Simethicone Chewable 80 MG TAB PO SCH ×3 (08:46→20:32)
[2020-08-25] MEDS: Fluticasone Propionate Nasal Spray 16 gm Bottle NASAL SCH (09:16)
--- NOTE | 2020-08-25 15:55 | PRG ---
DATE OF SERVICE: 08/25/2020 SUBJECTIVE: Ms. Rivas is doing better. She states her pain is improving. She is scheduled for an MRI tomorrow. The Lidoderm patch seems to be helping. No family at bedside. OBJECTIVE: VITAL SIGNS: She is afebrile. Heart rate 87, respirations 18, oxygen saturation 100% on 2 L, and blood pressure is 117/56. CARDIOVASCULAR SYSTEM: S1, S2 plus. RESPIRATORY SYSTEM: Normal vesicular breath sounds. ABDOMEN: Soft and nontender. Bowel sounds heard in all quadrants. EXTREMITIES: Without cyanosis or clubbing. CENTRAL NERVOUS SYSTEM: Generalized weakness, otherwise nonfocal. IMPRESSION: 1. Severe acute low back pain, unknown etiology. 2. Chronic obstructive pulmonary disease. 3. Chronic hypoxemic respiratory failure. 4. Coronary artery disease. 5. Depression and anxiety. 6. Gastroesophageal reflux disease. PLAN: 1. Continue current medications. 2. Heart healthy diet. 3. Monitor respiratory status and breathing treatments as needed. 4. DVT prophylaxis with PlexiPulses. 5. Pain control. 6. Await MRI tomorrow. 7. Dr. Severino moss [facility]. Job ID: [id number]
[2020-08-25] MEDS: Atorvastatin Calcium 20 MG TAB PO SCH (20:32)
[2020-08-25] MEDS: Lidocaine Patch Removal TOP SCH (20:33)
[2020-08-26] MEDS: Budesonide 0.5 MG/2 ML NEB NEB SCH ×2 (05:22→17:40)
[2020-08-26] MEDS: Dicyclomine 10 MG CAP PO SCH ×2 (07:59→21:05)
[2020-08-26] MEDS: Citalopram 20 MG TAB PO SCH (07:59)
[2020-08-26] MEDS: Folic Acid 1 MG TAB PO SCH (08:02)
[2020-08-26] MEDS: Fluticasone Propionate Nasal Spray 16 gm Bottle NASAL SCH (08:02)
[2020-08-26] MEDS: Lidocaine 5% Patch TD SCH (08:03)
[2020-08-26] MEDS: Metoprolol Tartrate 25 MG TAB PO SCH ×2 (08:03→21:05)
[2020-08-26] MEDS: Simethicone Chewable 80 MG TAB PO SCH ×3 (08:03→21:05)
[2020-08-26] MEDS: Gabapentin 300 MG CAP PO SCH ×3 (08:04→21:04)
[2020-08-26] MEDS: guaiFENesin ER 600 MG TAB PO SCH ×2 (08:04→21:05)
[2020-08-26] MEDS: Acetaminophen 325 MG TAB PO PRN (08:05)
[2020-08-26] MEDS: Methocarbamol 500 MG TAB PO PRN ×3 (08:05→21:04)
--- NOTE | 2020-08-26 14:18 | PRG ---
DATE OF SERVICE: 08/26/2020 SUBJECTIVE: The patient feels somewhat better with lidocaine patch. She is able to exercise in the bed, but still having significant pain. She has had MRI of her lumbar spine done today, but the results are still pending. OBJECTIVE: VITAL SIGNS: Temperature is 97.8, pulse 88, respirations 18, O2 saturation is 99% on 2 L, and blood pressure 139/64. LUNGS: Decreased breath sounds with no rales or rhonchi. CARDIAC: Regular rhythm. No gallops or murmurs. ABDOMEN: Soft and nontender. BACK: Significant tenderness to palpation, movement. NEUROLOGICAL: Intact. ASSESSMENT: 1. Severe chronic obstructive pulmonary disease, steroid and oxygen dependent, stable. 2. Chronic degenerative disk disease with chronic lower back pain, now with increased exacerbation with muscle spasms with lidocaine patch, gabapentin, and Robaxin. Awaiting results of MRI. 3. Cancer of the lung, status post radiation with no evidence for recurrence. 4. Irritable bowel, stable. 5. Anxiety and depression, stable. PLAN: 1. Continue PT and OT. Obtain results of MRI. Continue lidocaine patch, gabapentin, and Robaxin for back pain. 2. Continue dicyclomine for irritable bowel. 3. Continue citalopram and alprazolam for anxiety and depression. Job ID: [id number]
--- NOTE | 2020-08-26 15:14 | PRG ---
DATE OF SERVICE: 08/26/2020 SUBJECTIVE: The patient is having decreased, but persistent pain in her back with lidocaine patch. OBJECTIVE: Shows MRI does show a compression fracture acutely of L3 with no apparent lytic lesions and some bilateral adrenal hyperplasia, possible nodules. LUNGS: Clear with decreased breath sounds. CARDIAC: Shows regular rhythm. ABDOMEN: Soft and nontender. VITAL SIGNS: Temperature is 97.8, pulse 88, respirations 18, O2 sats 99% on 2 L, and blood pressure 139/64. ASSESSMENT: 1. Acute compression fracture of L3 with subsequent muscle spasm. 2. Cancer of the lung, stage I. 3. Severe chronic obstructive pulmonary disease, steroid dependent. 4. Irritable bowel, stable. 5. Chronic pain, stable. PLAN: 1. Continue PT/OT. 2. Continue lidocaine patch, gabapentin, and Robaxin. 3. Discussed stronger pain medication with the patient. Job ID: [id number]
[2020-08-26] MEDS: Polyethylene Glycol 3350 17 GM Packet PO SCH ×2 (17:40→21:06)
[2020-08-26] MEDS: Docusate 100 MG CAP PO SCH ×2 (17:40→21:07)
[2020-08-26] MEDS: Atorvastatin Calcium 20 MG TAB PO SCH (21:04)
[2020-08-26] MEDS: Lidocaine Patch Removal TOP SCH (21:06)
[2020-08-26] MEDS ORDERED: Dicyclomine 10 MG CAP PO SCH (21:15)
[2020-08-27] MEDS: Budesonide 0.5 MG/2 ML NEB NEB SCH ×2 (05:31→18:04)
[2020-08-27] MEDS: Dicyclomine 10 MG CAP PO SCH ×2 (09:19→20:22)
[2020-08-27] MEDS: Citalopram 20 MG TAB PO SCH (09:19)
[2020-08-27] MEDS: Folic Acid 1 MG TAB PO SCH (09:20)
[2020-08-27] MEDS: Docusate 100 MG CAP PO SCH ×2 (09:20→20:21)
[2020-08-27] MEDS: Fluticasone Propionate Nasal Spray 16 gm Bottle NASAL SCH (09:20)
[2020-08-27] MEDS: Metoprolol Tartrate 25 MG TAB PO SCH ×2 (09:21→20:22)
[2020-08-27] MEDS: Lidocaine 5% Patch TD SCH (09:21)
[2020-08-27] MEDS: Gabapentin 300 MG CAP PO SCH ×3 (09:21→20:22)
[2020-08-27] MEDS: guaiFENesin ER 600 MG TAB PO SCH ×2 (09:21→20:22)
[2020-08-27] MEDS: Polyethylene Glycol 3350 17 GM Packet PO SCH ×2 (09:22→20:21)
[2020-08-27] MEDS: Methocarbamol 500 MG TAB PO PRN ×2 (09:22→20:22)
[2020-08-27] MEDS: Simethicone Chewable 80 MG TAB PO SCH ×3 (09:22→20:21)
[2020-08-27] MEDS: Acetaminophen 325 MG TAB PO PRN (09:23)
[2020-08-27] MEDS: ALPRAZolam 0.25 MG TAB PO PRN ×2 (09:25→20:22)
[2020-08-27 10:49] VITALS: BMI 29.2
[2020-08-27] MEDS: Atorvastatin Calcium 20 MG TAB PO SCH (20:22)
[2020-08-27] MEDS: Lidocaine Patch Removal TOP SCH (20:23)
[2020-08-28] MEDS: Budesonide 0.5 MG/2 ML NEB NEB SCH ×2 (05:11→17:35)
[2020-08-28] MEDS: guaiFENesin ER 600 MG TAB PO SCH ×2 (08:07→20:03)
[2020-08-28] MEDS: Metoprolol Tartrate 25 MG TAB PO SCH ×2 (08:07→20:03)
[2020-08-28] MEDS: Dicyclomine 10 MG CAP PO SCH ×2 (08:07→20:03)
[2020-08-28] MEDS: Citalopram 20 MG TAB PO SCH (08:07)
[2020-08-28] MEDS: Methocarbamol 500 MG TAB PO PRN ×3 (08:07→20:03)
[2020-08-28] MEDS: Simethicone Chewable 80 MG TAB PO SCH ×3 (08:07→20:03)
[2020-08-28] MEDS: Docusate 100 MG CAP PO SCH ×2 (08:07→20:04)
[2020-08-28] MEDS: Gabapentin 300 MG CAP PO SCH ×3 (08:08→20:03)
[2020-08-28] MEDS: Folic Acid 1 MG TAB PO SCH (08:08)
[2020-08-28] MEDS: Fluticasone Propionate Nasal Spray 16 gm Bottle NASAL SCH (08:08)
[2020-08-28] MEDS: Polyethylene Glycol 3350 17 GM Packet PO SCH ×2 (08:09→20:02)
[2020-08-28] MEDS: Lidocaine 5% Patch TD SCH (08:09)
[2020-08-28] MEDS: ALPRAZolam 0.25 MG TAB PO PRN (20:03)
[2020-08-28] MEDS: Atorvastatin Calcium 20 MG TAB PO SCH (20:03)
[2020-08-28] MEDS: Lidocaine Patch Removal TOP SCH (20:04)
[2020-08-29] MEDS: Budesonide 0.5 MG/2 ML NEB NEB SCH ×2 (05:06→18:37)
--- NOTE | 2020-08-29 07:09 | PRG ---
DATE OF SERVICE: 08/28/2020 SUBJECTIVE: Patient is having persistent pain in the back and is cooperating minimally with therapy, but states that she will cooperate. She is confronted with need to cooperate in order to qualify to swing and the assisted bed to continue pressure therapy. The patient states that she will discuss further with therapy. OBJECTIVE: VITAL SIGNS: Show temperature is 98, pulse 110, respirations 18, O2 sats 98% on 2 L, and blood pressure 110/52. LUNGS: Show decreased breath sounds. No wheezes or rhonchi. CARDIAC EXAMINATION: Shows regular rhythm. ABDOMEN: Soft and nontender. SKIN/EXTREMITIES: Display tender lower back with palpable spasms. ASSESSMENT: 1. Severe chronic obstructive pulmonary disease, steroid and oxygen dependent. 2. Compression fracture of L3 with muscle spasms, significant pain. 3. Irritable bowel, stable. 4. Fibromyalgia, stable. 5. Cancer of the lung, no evidence recurrence. PLAN: 1. Continue to stress need to do therapy and discuss further with PT. 2. Continue gabapentin, Robaxin, and may consider hydrocodone. 3. Continue dicyclomine for irritable bowel. Job ID: [id number]
[2020-08-29 07:12] LABS: #Basophils 0.1 thou/uL (0.0-0.2); #Eosinphils 0.3 thou/uL (0.0-0.7); #Lymphocytes 0.6 thou/uL (1.20-3.40); #Monocytes 0.6 thou/uL (0.11-0.59); #Neutrophils 4.3 thou/uL (1.40-6.50); %Basophils 1.3 % (0.0-1.0); %Eosinophils 4.8 % (0.0-10.0); %Lymphocytes 9.6 % (21.0-51.0); %Neutrophils 73.4 % (42.0-75.0); Hemoglobin 11.4 g/dL (12.0-16.0); Mean Corpuscular HGB CONC 33.3 g/dL (32.0-36.0); Mean Corpuscular Hemoglobin 32.7 pg (27.0-31.0); Mean Corpuscular Volume 98.1 fL (78.0-98.0); Mean Platelet Volume 5.7 fL (7.4-10.4); Platelet Count 270 thou/uL (130-400); RBC Distribution Width 12.6 % (11.5-14.5); Red Blood Cell (RBC) Count 3.49 mill/uL (4.20-5.40); White Blood Cell (WBC) Count 5.8 thou/uL (4.8-10.8)
--- NOTE | 2020-08-29 07:17 | PRG ---
DATE OF SERVICE: 08/27/2020 SUBJECTIVE: The patient is having persistent severe pain in her back with spasms, tempting to cooperate with therapy somewhat limited. She is having stable dyspnea on exertion, on high-dose bronchodilators and steroids. OBJECTIVE: MRI does show that she has compression fracture of L3 fairly acute with no evidence of any lytic lesions or pathologic fracture. LUNGS: Show decreased breath sounds. No rhonchi. CARDIAC: Shows regular rhythm. ABDOMEN: Soft and nontender. SKIN/EXTREMITIES: Show cushingoid facies. VITAL SIGNS: Show temperature 97.4, pulse 101, respirations 20, O2 sats 96% on 2 L, and blood pressure 109/66. BACK: Shows palpable spasms, tenderness over lumbar spine. ASSESSMENT: 1. Acute compression fracture of L3 with muscle spasms. 2. Severe but stable chronic obstructive pulmonary disease, prednisone, oxygen-dependent. 3. Cancer of the lung with no evidence of recurrence. 4. Irritable bowel, stable. 5. Fibromyalgia, stable. 6. Deconditioning, minimal improvement. PLAN: 1. Continue to stress PT/OT. Continue gabapentin and Robaxin as the patient cannot tolerate hydrocodone and tramadol does not work. 2. Continue prednisone at 20 mg an hour. 3. Continue lidocaine patch, appears to be improving. Job ID: [id number]
[2020-08-29 07:27] LABS: ALT (SGPT) 16 U/L (8-55); AST (SGOT) 17 U/L (5-34); Albumin 3.8 g/dL (3.4-4.8); Alkaline Phosphatase 86 U/L (40-110); Anion Gap 12 mmol/L (10-20); BUN (Urea Nitrogen) 9 mg/dL (9.8-20.1); Bilirubin, Total 0.5 mg/dL (0.2-1.2); Calc. Creatinine Clearance 85 mL/min (70-130); Calcium 9.1 mg/dL (7.8-10.44); Carbon Dioxide 27 mmol/L (23-31); Chloride 95 mmol/L (98-107); Estimated GFR-MDRD 87; Globulin 2.4 g/dL (2.4-3.5); Glucose 114 mg/dL (83-110); Potassium 4.2 mmol/L (3.5-5.1); Protein, Total 6.2 g/dL (6.0-8.3); Sodium 130 mmol/L (136-145)
[2020-08-29] MEDS: Methocarbamol 500 MG TAB PO PRN ×3 (09:05→22:53)
[2020-08-29] MEDS: guaiFENesin ER 600 MG TAB PO SCH ×2 (09:05→20:41)
[2020-08-29] MEDS: Metoprolol Tartrate 25 MG TAB PO SCH ×2 (09:06→20:41)
[2020-08-29] MEDS: Folic Acid 1 MG TAB PO SCH (09:06)
[2020-08-29] MEDS: Dicyclomine 10 MG CAP PO SCH ×2 (09:06→20:42)
[2020-08-29] MEDS: Citalopram 20 MG TAB PO SCH (09:06)
[2020-08-29] MEDS: Gabapentin 300 MG CAP PO SCH ×3 (09:06→20:42)
[2020-08-29] MEDS: predniSONE 20 MG TAB PO SCH (09:06)
[2020-08-29] MEDS: Fluticasone Propionate Nasal Spray 16 gm Bottle NASAL SCH (09:07)
[2020-08-29] MEDS: Lidocaine 5% Patch TD SCH (09:07)
[2020-08-29] MEDS: Docusate 100 MG CAP PO SCH ×2 (09:07→20:41)
[2020-08-29] MEDS: Simethicone Chewable 80 MG TAB PO SCH ×3 (09:07→20:41)
[2020-08-29] MEDS: Polyethylene Glycol 3350 17 GM Packet PO SCH ×2 (09:08→20:41)
[2020-08-29] MEDS: Acetaminophen 325 MG TAB PO PRN (11:15)
--- NOTE | 2020-08-29 19:58 | RAD ---
Chest AP view INDICATION: Increased cough and secretions COMPARISON: August 22, 2020 FINDINGS: Lungs: Lungs remain hyperinflated but clear Cardiac silhouette: The cardiomediastinal silhouette appears within normal limits. Pulmonary vasculature: Normal Pleural spaces: No pleural effusion or pneumothorax is demonstrated. Upper abdomen: No abnormality seen. Osseous structures: No acute osseous abnormality. Additional findings: None. IMPRESSION: Hyperinflated lungs without acute infiltrate.
[2020-08-29] MEDS: Atorvastatin Calcium 20 MG TAB PO SCH (20:41)
[2020-08-29] MEDS: ALPRAZolam 0.25 MG TAB PO PRN (20:41)
[2020-08-29] MEDS: Lidocaine Patch Removal TOP SCH (20:42)
[2020-08-30] MEDS: Budesonide 0.5 MG/2 ML NEB NEB SCH (05:43)
[2020-08-30] MEDS: Fluticasone Propionate Nasal Spray 16 gm Bottle NASAL SCH (09:37)
[2020-08-30] MEDS: Lidocaine 5% Patch TD SCH (09:37)
[2020-08-30] MEDS: Acetaminophen 325 MG TAB PO PRN (09:38)
[2020-08-30] MEDS: Polyethylene Glycol 3350 17 GM Packet PO SCH (09:38)
[2020-08-30] MEDS: Metoprolol Tartrate 25 MG TAB PO SCH (09:38)
[2020-08-30] MEDS: Citalopram 20 MG TAB PO SCH (09:39)
[2020-08-30] MEDS: guaiFENesin ER 600 MG TAB PO SCH (09:40)
[2020-08-30] MEDS: Docusate 100 MG CAP PO SCH (09:40)
[2020-08-30] MEDS: predniSONE 20 MG TAB PO SCH (09:40)
[2020-08-30] MEDS: Gabapentin 300 MG CAP PO SCH (09:40)
[2020-08-30] MEDS: Folic Acid 1 MG TAB PO SCH (09:40)
[2020-08-30] MEDS: Simethicone Chewable 80 MG TAB PO SCH (09:40)
[2020-08-30] MEDS: Methocarbamol 500 MG TAB PO PRN (09:50)
[2020-08-30] MEDS: ALPRAZolam 0.25 MG TAB PO PRN (09:50)
[2020-08-30] MEDS: Dicyclomine 10 MG CAP PO SCH (09:53)
[2020-08-30 12:01] VITALS: BP 122/65; TEMP 97.8
[2020-08-30 12:53] LABS: #Basophils 0.1 thou/uL (0.0-0.2); #Eosinphils 0.3 thou/uL (0.0-0.7); #Lymphocytes 0.4 thou/uL (1.20-3.40); #Monocytes 0.6 thou/uL (0.11-0.59); #Neutrophils 13.6 thou/uL (1.40-6.50); %Basophils 0.7 % (0.0-1.0); %Eosinophils 1.9 % (0.0-10.0); %Lymphocytes 2.9 % (21.0-51.0); %Monocytes 3.8 % (0.0-10.0); %Neutrophils 90.6 % (42.0-75.0); Hemoglobin 12.2 g/dL (12.0-16.0); Mean Corpuscular HGB CONC 34.3 g/dL (32.0-36.0); Mean Corpuscular Hemoglobin 33.5 pg (27.0-31.0); Mean Corpuscular Volume 97.6 fL (78.0-98.0); Mean Platelet Volume 5.8 fL (7.4-10.4); Platelet Count 408 thou/uL (130-400); RBC Distribution Width 12.9 % (11.5-14.5); Red Blood Cell (RBC) Count 3.63 mill/uL (4.20-5.40)
[2020-08-30 13:05] LABS: Anion Gap 14 mmol/L (10-20); BUN (Urea Nitrogen) 11 mg/dL (9.8-20.1); Calc. Creatinine Clearance 71 mL/min (70-130); Calcium 9.5 mg/dL (7.8-10.44); Carbon Dioxide 24 mmol/L (23-31); Chloride 92 mmol/L (98-107); Estimated GFR-MDRD 70; Glucose 163 mg/dL (83-110); Potassium 4.4 mmol/L (3.5-5.1); Sodium 126 mmol/L (136-145)
== END 2020-08-30 10:15 | DRG 543 ==
LOC: NAV ERS 11:46 → NAV ACUTE 16:20 → OBSVTOIN 16:20 → NAV ACUTE 16:37
PROVIDERS: ADMIT Internal Medicine; ATTEND Internal Medicine
DX: M48.56XA Collapsed vertebra, not elsewhere classified, lumbar region, initial encounter for fracture (principal); J96.11 Chronic respiratory failure with hypoxia; C34.90 Malignant neoplasm of unspecified part of unspecified bronchus or lung; M54.5 Low back pain; J44.9 Chronic obstructive pulmonary disease, unspecified; I25.10 Atherosclerotic heart disease of native coronary artery without angina pectoris; Z20.828 Contact with and (suspected) exposure to other viral communicable diseases; I10 Essential (primary) hypertension; E78.5 Hyperlipidemia, unspecified; F41.9 Anxiety disorder, unspecified; F32.9 Major depressive disorder, single episode, unspecified; K58.9 Irritable bowel syndrome, unspecified; M79.7 Fibromyalgia; I25.2 Old myocardial infarction; Z85.118 Personal history of other malignant neoplasm of bronchus and lung; Z90.49 Acquired absence of other specified parts of digestive tract; Z90.710 Acquired absence of both cervix and uterus; Z95.5 Presence of coronary angioplasty implant and graft; Z87.891 Personal history of nicotine dependence; Z88.0 Allergy status to penicillin; Z88.1 Allergy status to other antibiotic agents; Z88.8 Allergy status to other drugs, medicaments and biological substances; Z79.899 Other long term (current) drug therapy; Z88.2 Allergy status to sulfonamides; R53.81 Other malaise
CPT/HCPCS: 51701; 71045; 71275; 80048; 80053; 81003; 81015; 82550; 83690; 84484; 85025; 85379; 87635; 93005; 94640; 94760; J7512; J7620; J7626; Q9967; U0003

== ENCOUNTER 2020-08-30 10:18 | Inpatient (IN) | payer MEDICARE, BC ==
[2020-08-30] MEDS ORDERED: FLU VACC QS2020-21(65YR UP)/PF 240 MCG/0.7 ML SYRINGE IM ONE (13:00)
[2020-08-30] MEDS: Gabapentin 100 MG CAP PO SCH (15:20)
[2020-08-30] MEDS: Simethicone Chewable 80 MG TAB PO SCH ×2 (15:21→21:06)
[2020-08-30] MEDS: Acetaminophen 325 MG TAB PO PRN (17:36)
[2020-08-30] MEDS: Budesonide 0.5 MG/2 ML NEB NEB SCH (18:10)
[2020-08-30] MEDS: ALPRAZolam 0.25 MG TAB PO PRN (21:05)
[2020-08-30] MEDS: Methocarbamol 500 MG TAB PO PRN (21:05)
[2020-08-30] MEDS: guaiFENesin ER 600 MG TAB PO SCH (21:06)
[2020-08-30] MEDS: Atorvastatin Calcium 20 MG TAB PO SCH (21:06)
[2020-08-30] MEDS: Metoprolol Tartrate 25 MG TAB PO SCH (21:06)
[2020-08-30] MEDS: Gabapentin 300 MG CAP PO SCH (21:06)
[2020-08-30] MEDS: Docusate 100 MG CAP PO SCH (21:06)
[2020-08-30] MEDS: Dicyclomine 10 MG CAP PO SCH (21:06)
[2020-08-30] MEDS: Polyethylene Glycol 3350 17 GM Packet PO SCH (21:07)
[2020-08-31] MEDS: Lidocaine Patch Removal 1 EACH TOP SCH (01:46)
[2020-08-31] MEDS: Budesonide 0.5 MG/2 ML NEB NEB SCH ×2 (06:02→17:33)
[2020-08-31] MEDS: Methocarbamol 500 MG TAB PO PRN ×3 (06:05→20:46)
[2020-08-31] MEDS: predniSONE 20 MG TAB PO SCH (08:15)
[2020-08-31] MEDS: Citalopram 20 MG TAB PO SCH (08:15)
[2020-08-31] MEDS: Dicyclomine 10 MG CAP PO SCH ×2 (08:16→20:38)
[2020-08-31] MEDS: Docusate 100 MG CAP PO SCH ×2 (08:16→20:39)
[2020-08-31] MEDS: Metoprolol Tartrate 25 MG TAB PO SCH ×2 (08:17→20:39)
[2020-08-31] MEDS: Folic Acid 1 MG TAB PO SCH (08:17)
[2020-08-31] MEDS: guaiFENesin ER 600 MG TAB PO SCH ×2 (08:17→20:39)
[2020-08-31] MEDS: Gabapentin 100 MG CAP PO SCH ×2 (08:17→14:11)
[2020-08-31] MEDS: Simethicone Chewable 80 MG TAB PO SCH ×3 (08:18→20:50)
[2020-08-31] MEDS: UMECLIDINIUM INH SCH (08:18)
[2020-08-31] MEDS: VILANTEROL INH SCH (08:18)
[2020-08-31] MEDS: Acetaminophen 325 MG TAB PO PRN ×2 (08:18→14:12)
[2020-08-31] MEDS: Polyethylene Glycol 3350 17 GM Packet PO SCH ×2 (08:18→20:39)
[2020-08-31] MEDS: Fluticasone Propionate Nasal Spray 16 gm Bottle NASAL SCH (08:22)
--- NOTE | 2020-08-31 10:12 | PRG ---
DATE OF SERVICE: 08/31/2020 SUBJECTIVE: This is a 70-year-old female, originally admitted to [facility] for exacerbation of COPD requiring aggressive IV steroids and nebulized bronchodilators and increased oxygen requirement. The patient eventually recovered from this and continued to do well. However, she remained weak due to having severe pain and therefore was admitted to [facility] for pain relief. The patient has been swung to a senior living bed after being in acute care. Overall, the patient continues to have shortness of breath and cough, but it is stable compared to her previous visit as well as stable during PT and OT Services. VITAL SIGNS: Temperature 97 to 97.9, pulse 78 to 105, respiratory rate 20 to 22, O2 saturations 95 to 100 on 2 L nasal cannula, blood pressure 118/70. LABORATORY DATA: WBC 15, hemoglobin 12.12, hematocrit 35.4, platelets 408, neutrophil 90%, lymphocytes 2.9%, monocytes 3.8%, eosinophil 1.9%, basophils 0.7%. Sodium 126, potassium 4.4, chloride 92, carbon dioxide 24, BUN 11, creatinine 0.81, GFR 70, glucose ranging from 114 to 163, calcium 9.5. ASSESSMENT: 1. Acute compression fracture of L3 with muscle spasms. 2. Severe chronic obstructive pulmonary disease, but stable with prednisone, bronchodilators, and oxygen. 3. Cancer of the lung, no evidence of recurrence. 4. Irritable bowel syndrome, stable. 5. Fibromyalgia, stable. 6. Deconditioning, requiring continued PT and OT services with senior living. 7. Hyponatremia. PLAN: 1. Continue to encourage cooperation with PT and OT. Continue gabapentin and Robaxin as needed for her muscle spasms. 2. Continue prednisone. 3. Continue lidocaine patch as needed. 4. Continue bronchodilators and oxygen therapy. 5. Continue to monitor the patient's sodium. The patient is asymptomatic from this. We will give fluid restriction of 1.5 L per day and repeat BMP in the morning. Monitor for any new signs or symptoms of hyponatremia. Job ID: [id number] [facility]
--- NOTE | 2020-08-31 11:43 | HP ---
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 She has improved, but then had the acute onset of severe pain, was found to have a compression fracture of L3 and required admission to the [facility] for pain relief. While there, she initially did not ambulate, but then began to ambulate more and was very weak, however, has been admitted to [facility] for continued PT. She has been continued on her handheld nebulizers with DuoNeb, inhaled budesonide as well as oral steroids, supplemental oxygen, and an oral inhaler and has continued to have significant dyspnea on minimal exertion, but not at rest. She did develop some significant dyspnea at rest today, but chest x-ray show no acute changes. Vital signs have remained stable with temperature of 98, pulse 103, respirations 22, and blood pressure 113/80. Laboratory done yesterday showed a white count of 5800. Chemistry did show a sodium of 130, potassium 4.2, bicarb 27, and chloride of 95. She is complaining now of her recurrent irritable bowel with a burning in her stomach despite being on pantoprazole. She is also coughing up clear thin mucous and lungs do not show any significant wheezing, but she is tachypneic. PAST MEDICAL HISTORY: 1. Remarkable for cancer of the lung, stage I in remission. 2. Stable fibromyalgia, chronic for years with chronic back pain previous to the compression fracture. 3. Irritable bowel syndrome with recurrent abdominal pain and diarrhea, treated with dicyclomine as well as pantoprazole with no evidence of previous peptic ulcer disease. She has had a distant history of coronary artery disease, myocardial infarction greater than 30 years ago with no recurrent ischemia during her multiple admissions. ALLERGIES: SHE IS ALLERGIC TO PENICILLIN, SERTRALINE, CHLORPROMAZINE, OFLOXACIN, LYRICA, SULFA DRUGS, AND DECONGESTANT. SOCIAL HISTORY: She lives with her . She has a distant history of smoking, but none in the last 3 years. She does not drink alcohol. REVIEW OF SYSTEMS: HEENT: She denies any headaches, dizziness, change in vision, hearing, hoarseness or dysphagia. PULMONARY: She denies cough, sputum production prior to last night, but has noticed some cough with eating at this time. She has had severe dyspnea on minimal exertion for many years and occasionally at rest, significant bronchodilators and steroid therapy. CARDIOVASCULAR: She has had rare episodes of chest pain with no evidence of ischemia. She has had no palpitations or orthopnea. GASTROINTESTINAL: She has recurrent abdominal pain with rare nausea, had no diarrhea, began on dicyclomine. GENITOURINARY: She denies dysuria or hematuria. MUSCULOSKELETAL: She has severe pain in her back on any movement, but does have chronic back pain and leg pain for years secondary to fibromyalgia. NEUROLOGIC: She denies localized numbness, weakness in arm or extremities. PHYSICAL EXAMINATION: GENERAL: The patient is an elderly white female, cushingoid round face who is in [id number] respiratory distress. Alert, oriented, and lucid. VITAL SIGNS: As above with a pulse 103, respirations 22, temperature is 98, O2 sats 96%, and blood pressure 113/80. HEENT: Pupils are equal, round, and reactive to light and accommodation. Sclerae are anicteric. Conjunctivae are pale. Oral mucous membranes well hydrated. NECK: Supple. There are no nodes or masses. JVP is not elevated. LUNGS: Show decreased breath sounds with only a few crackles in the bases. There are no wheezes or rhonchi. CARDIAC: Shows rapid regular rhythm. No gallops or murmurs. ABDOMEN: Soft, but diffusely tender. Good bowel sounds. SKIN/EXTREMITIES: Display no edema, clubbing, or cyanosis. There is severe spasm and tenderness to palpation of the lower back. NEUROLOGIC: Denies localized numbness or weakness. Has normal strength and sensation in all extremities. Cranial nerves are intact. ASSESSMENT: 1. Chronic obstructive pulmonary disease, end-stage, on multiple bronchodilators. Complaining of severe dyspnea at this time and inability to maintain ADLs, physical therapy. 2. Compression fracture of lumbar spine with significant pain, improved slightly with gabapentin and Robaxin. 3. Irritable bowel with increased symptoms today. Anorexia, despite being on dicyclomine and Protonix. 4. . Job ID: [id number]
[2020-08-31] MEDS: Lidocaine 5% Patch TD SCH (14:11)
[2020-08-31] MEDS: Atorvastatin Calcium 20 MG TAB PO SCH (20:38)
[2020-08-31] MEDS: Gabapentin 300 MG CAP PO SCH (20:39)
[2020-08-31] MEDS: ALPRAZolam 0.25 MG TAB PO PRN (20:46)
[2020-09-01] MEDS: Lidocaine Patch Removal 1 EACH TOP SCH (02:37)
[2020-09-01] MEDS: Budesonide 0.5 MG/2 ML NEB NEB SCH ×2 (05:39→17:35)
[2020-09-01] MEDS: Fluticasone Propionate Nasal Spray 16 gm Bottle NASAL SCH (08:19)
[2020-09-01] MEDS: UMECLIDINIUM INH SCH (08:19)
[2020-09-01] MEDS: VILANTEROL INH SCH (08:19)
[2020-09-01] MEDS: Docusate 100 MG CAP PO SCH ×3 (08:20→21:34)
[2020-09-01] MEDS: Dicyclomine 10 MG CAP PO SCH ×2 (08:20→21:19)
[2020-09-01] MEDS: predniSONE 20 MG TAB PO SCH (08:20)
[2020-09-01] MEDS: Citalopram 20 MG TAB PO SCH (08:20)
[2020-09-01] MEDS: Gabapentin 100 MG CAP PO SCH ×2 (08:21→14:11)
[2020-09-01] MEDS: guaiFENesin ER 600 MG TAB PO SCH ×2 (08:21→21:19)
[2020-09-01] MEDS: Folic Acid 1 MG TAB PO SCH (08:21)
[2020-09-01] MEDS: Polyethylene Glycol 3350 17 GM Packet PO SCH ×2 (08:21→21:34)
[2020-09-01] MEDS: Metoprolol Tartrate 25 MG TAB PO SCH ×2 (08:21→21:19)
[2020-09-01] MEDS: Methocarbamol 500 MG TAB PO PRN ×2 (08:22→14:11)
[2020-09-01] MEDS: Simethicone Chewable 80 MG TAB PO SCH ×3 (08:22→21:19)
[2020-09-01] MEDS: Acetaminophen 325 MG TAB PO PRN ×2 (08:22→14:11)
[2020-09-01] MEDS: Lidocaine 5% Patch TD SCH (14:11)
[2020-09-01] MEDS: Atorvastatin Calcium 20 MG TAB PO SCH (21:19)
[2020-09-01] MEDS: Gabapentin 300 MG CAP PO SCH (21:19)
[2020-09-01] MEDS: ALPRAZolam 0.25 MG TAB PO PRN (21:19)
[2020-09-02] MEDS ORDERED: Acetaminophen 325 MG TAB ONE (01:13)
[2020-09-02] MEDS: Acetaminophen 325 MG TAB PO PRN (01:15)
[2020-09-02] MEDS: Lidocaine Patch Removal 1 EACH TOP SCH (01:32)
[2020-09-02] MEDS: Methocarbamol 500 MG TAB PO PRN ×2 (02:06→09:23)
[2020-09-02] MEDS: Budesonide 0.5 MG/2 ML NEB NEB SCH ×2 (05:16→18:10)
[2020-09-02] MEDS: Fluticasone Propionate Nasal Spray 16 gm Bottle NASAL SCH (09:22)
[2020-09-02] MEDS: Simethicone Chewable 80 MG TAB PO SCH ×3 (09:23→20:26)
[2020-09-02] MEDS: Dicyclomine 10 MG CAP PO SCH ×2 (09:23→20:25)
[2020-09-02] MEDS: Folic Acid 1 MG TAB PO SCH (09:23)
[2020-09-02] MEDS: Docusate 100 MG CAP PO SCH ×2 (09:23→20:26)
[2020-09-02] MEDS: predniSONE 20 MG TAB PO SCH (09:23)
[2020-09-02] MEDS: guaiFENesin ER 600 MG TAB PO SCH ×2 (09:23→20:25)
[2020-09-02] MEDS: Metoprolol Tartrate 25 MG TAB PO SCH ×2 (09:24→20:26)
[2020-09-02] MEDS: Citalopram 20 MG TAB PO SCH (09:24)
[2020-09-02] MEDS: VILANTEROL INH SCH (09:25)
[2020-09-02] MEDS: UMECLIDINIUM INH SCH (09:25)
[2020-09-02] MEDS: Polyethylene Glycol 3350 17 GM Packet PO SCH ×2 (09:26→20:25)
[2020-09-02] MEDS: Gabapentin 100 MG CAP PO SCH ×2 (13:06→15:19)
[2020-09-02] MEDS: ALPRAZolam 0.25 MG TAB PO PRN ×2 (13:11→20:25)
[2020-09-02] MEDS: Lidocaine 5% Patch TD SCH (15:08)
--- NOTE | 2020-09-02 17:36 | PRG ---
DATE OF SERVICE: 09/02/2020 SUBJECTIVE: The patient feels well, lying in bed. No further problems of swallowing or coughing. Speech Therapy will re-evaluate, however, again tomorrow. She has done well today with persistent pain, but did cooperate in therapy and walk several times, and we will await therapy report tomorrow. OBJECTIVE: VITAL SIGNS: Her blood pressure has remained stable at 120/71 with pulse 85, O2 saturation of 99% on 2 L. LUNGS: Clear. CARDIAC: Shows regular rhythm. ABDOMEN: Soft and nontender. ASSESSMENT: 1. Persistent pain from compression fracture. 2. Resolving deconditioning slowly. 3. Stable chronic obstructive pulmonary disease. 4. Stable anxiety and depression. 5. Stable fibromyalgia. 6. Stable irritable bowel. PLAN: Change Robaxin to scheduled at 0900, 1500, and 2100 hours. Continue scheduled gabapentin, possibly start on tramadol. Continue Anoro plus DuoNebs and budesonide routinely. Job ID: [id number]
[2020-09-02] MEDS: Atorvastatin Calcium 20 MG TAB PO SCH (20:25)
[2020-09-02] MEDS: Gabapentin 300 MG CAP PO SCH (20:25)
[2020-09-02] MEDS: Methocarbamol 500 MG TAB PO SCH (20:26)
[2020-09-03] MEDS: Lidocaine Patch Removal 1 EACH TOP SCH (03:07)
[2020-09-03 05:19] LABS: Anion Gap 16 mmol/L (10-20); BUN (Urea Nitrogen) 8 mg/dL (9.8-20.1); Calc. Creatinine Clearance 78 mL/min (70-130); Calcium 9.2 mg/dL (7.8-10.44); Carbon Dioxide 24 mmol/L (23-31); Chloride 98 mmol/L (98-107); Estimated GFR-MDRD 84; Glucose 84 mg/dL (83-110); Sodium 134 mmol/L (136-145)
[2020-09-03 05:27] LABS: Potassium 4.3 mmol/L (3.5-5.1)
[2020-09-03] MEDS: Budesonide 0.5 MG/2 ML NEB NEB SCH ×2 (05:55→18:30)
[2020-09-03] MEDS: Polyethylene Glycol 3350 17 GM Packet PO SCH ×2 (08:29→20:40)
[2020-09-03] MEDS: Folic Acid 1 MG TAB PO SCH (08:30)
[2020-09-03] MEDS: predniSONE 20 MG TAB PO SCH (08:30)
[2020-09-03] MEDS: Methocarbamol 500 MG TAB PO SCH ×3 (08:31→20:39)
[2020-09-03] MEDS: Docusate 100 MG CAP PO SCH ×2 (08:31→20:39)
[2020-09-03] MEDS: Dicyclomine 10 MG CAP PO SCH ×2 (08:31→20:36)
[2020-09-03] MEDS: guaiFENesin ER 600 MG TAB PO SCH ×2 (08:31→20:37)
[2020-09-03] MEDS: Simethicone Chewable 80 MG TAB PO SCH ×3 (08:32→20:39)
[2020-09-03] MEDS: Fluticasone Propionate Nasal Spray 16 gm Bottle NASAL SCH (08:32)
[2020-09-03] MEDS: Metoprolol Tartrate 25 MG TAB PO SCH ×2 (08:32→20:39)
[2020-09-03] MEDS: UMECLIDINIUM INH SCH (08:32)
[2020-09-03] MEDS: VILANTEROL INH SCH (08:32)
[2020-09-03] MEDS: Gabapentin 100 MG CAP PO SCH ×2 (08:34→14:26)
[2020-09-03] MEDS: Citalopram 20 MG TAB PO SCH (08:36)
[2020-09-03 12:09] VITALS: BMI 27.6
[2020-09-03] MEDS: Lidocaine 5% Patch TD SCH (14:26)
[2020-09-03] MEDS: Gabapentin 300 MG CAP PO SCH (20:37)
[2020-09-03] MEDS: Atorvastatin Calcium 20 MG TAB PO SCH (20:39)
[2020-09-04] MEDS: Lidocaine Patch Removal 1 EACH TOP SCH (02:00)
[2020-09-04] MEDS: ALPRAZolam 0.25 MG TAB PO PRN ×2 (03:45→20:33)
[2020-09-04] MEDS: Acetaminophen 325 MG TAB PO PRN (05:12)
[2020-09-04] MEDS: Budesonide 0.5 MG/2 ML NEB NEB SCH ×2 (05:13→17:31)
--- NOTE | 2020-09-04 06:47 | PRG ---
DATE OF SERVICE: 09/03/2020 SUBJECTIVE: The patient lying in bed, feels well at rest, did walk today 30 feet, and did transfer despite significant pain. She has had no further problems with coughing, shortness of breath, sputum production. She has passed her speech evaluation. Therapy has stated that she may be ready to go home by the end of the week, but the patient states that she would need to talk to her about a handicap doorway and commode at home as well as bed. OBJECTIVE: VITAL SIGNS: Show her temperature is 97.6, pulse 86, respirations 20, O2 saturation 96% on 2 L, blood pressure 117/65. LUNGS: Show decreased breath sounds. No rales or rhonchi. CARDIAC: Shows regular rhythm. No gallops or murmurs. ABDOMEN: Soft and nontender. SKIN/EXTREMITIES: Show persistent spasms in the back, but decreasing. NEUROLOGICAL: Shows diffuse generalized weakness, but improving. ASSESSMENT: 1. Compression fracture, lumbar spine, at L3 with persistent but possibly decreased pain. 2. Decreasing deconditioning with patient cooperating with therapy and we will discuss discharge plan with Therapy and with Case Management as the patient requires some changes to her home. 3. Irritable bowel, stable and asymptomatic. 4. Fibromyalgia, complicating pain but stable. 5. Anxiety and depression, stable. PLAN: 1. Discuss home situation with Case Management. 2. Discussed discharge planning with PT. 3. Continue PT/OT. 4. Continue gabapentin and Robaxin. Job ID: [id number]
[2020-09-04] MEDS: predniSONE 20 MG TAB PO SCH (08:31)
[2020-09-04] MEDS: Dicyclomine 10 MG CAP PO SCH ×2 (08:32→20:33)
[2020-09-04] MEDS: Citalopram 20 MG TAB PO SCH (08:32)
[2020-09-04] MEDS: Docusate 100 MG CAP PO SCH ×2 (08:32→20:33)
[2020-09-04] MEDS: Fluticasone Propionate Nasal Spray 16 gm Bottle NASAL SCH (08:33)
[2020-09-04] MEDS: Gabapentin 100 MG CAP PO SCH ×2 (08:33→14:12)
[2020-09-04] MEDS: Folic Acid 1 MG TAB PO SCH (08:33)
[2020-09-04] MEDS: guaiFENesin ER 600 MG TAB PO SCH ×2 (08:36→20:32)
[2020-09-04] MEDS: VILANTEROL INH SCH (08:37)
[2020-09-04] MEDS: UMECLIDINIUM INH SCH (08:37)
[2020-09-04] MEDS: Methocarbamol 500 MG TAB PO SCH ×3 (08:37→20:33)
[2020-09-04] MEDS: Polyethylene Glycol 3350 17 GM Packet PO SCH ×2 (08:37→20:35)
[2020-09-04] MEDS: Metoprolol Tartrate 25 MG TAB PO SCH ×2 (08:37→20:32)
[2020-09-04] MEDS: Simethicone Chewable 80 MG TAB PO SCH ×3 (08:38→20:33)
[2020-09-04] MEDS: Lidocaine 5% Patch TD SCH (14:12)
[2020-09-04] MEDS: Atorvastatin Calcium 20 MG TAB PO SCH (20:32)
[2020-09-04] MEDS: Gabapentin 300 MG CAP PO SCH (20:33)
[2020-09-05] MEDS: Lidocaine Patch Removal 1 EACH TOP SCH ×2 (02:49→21:31)
[2020-09-05] MEDS: Budesonide 0.5 MG/2 ML NEB NEB SCH ×2 (05:45→18:32)
[2020-09-05] MEDS: Polyethylene Glycol 3350 17 GM Packet PO SCH ×2 (08:51→20:30)
[2020-09-05] MEDS: predniSONE 20 MG TAB PO SCH (08:52)
[2020-09-05] MEDS: Citalopram 20 MG TAB PO SCH (08:52)
[2020-09-05] MEDS: Dicyclomine 10 MG CAP PO SCH ×2 (08:52→20:31)
[2020-09-05] MEDS: Docusate 100 MG CAP PO SCH ×2 (08:53→20:31)
[2020-09-05] MEDS: Folic Acid 1 MG TAB PO SCH (08:53)
[2020-09-05] MEDS: Fluticasone Propionate Nasal Spray 16 gm Bottle NASAL SCH (08:53)
[2020-09-05] MEDS: Gabapentin 100 MG CAP PO SCH ×2 (08:53→14:50)
[2020-09-05] MEDS: guaiFENesin ER 600 MG TAB PO SCH ×2 (08:54→20:31)
[2020-09-05] MEDS: Metoprolol Tartrate 25 MG TAB PO SCH ×2 (08:54→20:30)
[2020-09-05] MEDS: Methocarbamol 500 MG TAB PO SCH ×3 (08:54→20:31)
[2020-09-05] MEDS: VILANTEROL INH SCH (08:55)
[2020-09-05] MEDS: UMECLIDINIUM INH SCH (08:55)
[2020-09-05] MEDS: Simethicone Chewable 80 MG TAB PO SCH ×3 (08:55→20:33)
[2020-09-05] MEDS: Acetaminophen 325 MG TAB PO PRN ×2 (08:57→14:52)
[2020-09-05] MEDS: Lidocaine 5% Patch TD SCH (14:50)
[2020-09-05] MEDS: Atorvastatin Calcium 20 MG TAB PO SCH (20:30)
[2020-09-05] MEDS: ALPRAZolam 0.25 MG TAB PO PRN (20:31)
[2020-09-05] MEDS: Gabapentin 300 MG CAP PO SCH (20:31)
[2020-09-06] MEDS: Budesonide 0.5 MG/2 ML NEB NEB SCH ×2 (05:37→18:08)
[2020-09-06] MEDS: Fluticasone Propionate Nasal Spray 16 gm Bottle NASAL SCH (08:57)
[2020-09-06] MEDS: UMECLIDINIUM INH SCH (08:58)
[2020-09-06] MEDS: Simethicone Chewable 80 MG TAB PO SCH ×3 (08:58→20:48)
[2020-09-06] MEDS: Gabapentin 100 MG CAP PO SCH ×2 (08:58→15:08)
[2020-09-06] MEDS: VILANTEROL INH SCH (08:58)
[2020-09-06] MEDS: Methocarbamol 500 MG TAB PO SCH ×3 (08:59→20:48)
[2020-09-06] MEDS: Metoprolol Tartrate 25 MG TAB PO SCH ×2 (08:59→20:49)
[2020-09-06] MEDS: Dicyclomine 10 MG CAP PO SCH ×2 (08:59→20:48)
[2020-09-06] MEDS: Docusate 100 MG CAP PO SCH ×2 (08:59→20:48)
[2020-09-06] MEDS: guaiFENesin ER 600 MG TAB PO SCH ×2 (08:59→20:49)
[2020-09-06] MEDS: Citalopram 20 MG TAB PO SCH (09:00)
[2020-09-06] MEDS: predniSONE 20 MG TAB PO SCH (09:00)
[2020-09-06] MEDS: Folic Acid 1 MG TAB PO SCH (09:00)
[2020-09-06] MEDS: Polyethylene Glycol 3350 17 GM Packet PO SCH ×2 (09:01→20:48)
--- NOTE | 2020-09-06 09:28 | PRG ---
DATE OF SERVICE: 09/04/2020 SUBJECTIVE: The patient lying in bed. She feels well, lying in bed, but does have pain on transfer and walking, although she did walk unknown amount today. There is concern, however, that she is only walking with a walker and she lives in a nonhandicapped disability apartment and may not be able to get the walker in the bathroom. She is also having difficulty transferring and is requesting a hospital bed. Her COPD is very severe, appears stable, no dyspnea at rest, but it is hard to keep her head elevated to rest. She is having no cough or sputum production. OBJECTIVE: VITAL SIGNS: Temperature is 97.4, pulse 99, respirations 20, O2 sats 97% on room air, and blood pressure 102/61. LUNGS: Show markedly decreased breath sounds. No rales or rhonchi. CARDIAC: Regular rhythm. No gallops or murmurs. ABDOMEN: Soft, minimally tender. SKIN AND EXTREMITIES: Show palpable spasms in the back with decreasing tenderness and pain. NEUROLOGICAL: Shows diffuse weakness, but improving. ASSESSMENT: 1. Severe chronic obstructive pulmonary disease, status post recent exacerbation, stabilized. 2. Compression fraction of L3, with severe pain and muscle spasms, improving. 3. Debility, improving as this patient is able to maintain ADLs with assistance only. 4. Irritable bowel, stable. 5. Fibromyalgia, stable. PLAN: Continue PT/OT. Obtain bedside commode and hospital bed so she can transfer to the walker and to prevent her from having to go into the bathroom without a walker as she does not have a handicapped accessible bathroom. Job ID: [id number]
[2020-09-06] MEDS: Acetaminophen 325 MG TAB PO PRN (10:12)
[2020-09-06] MEDS: ALPRAZolam 0.25 MG TAB PO PRN ×2 (10:13→20:47)
--- NOTE | 2020-09-06 11:47 | PRG ---
DATE OF SERVICE: 09/05/2020 SUBJECTIVE: The patient is sitting up in the bed, eating supper. States she is hurting, but she did walk 200 feet today. She understands she is nearing discharge and that hospital bed and bedside commode have been arranged. She is walking, unsure whether she will qualify for wheelchair and she understands this. She states, however, she wants a wheelchair to sit in when she is in her living room as she cannot sit in her couch. OBJECTIVE: VITAL SIGNS: Temperature 97.4, pulse 90, respirations 20, O2 sats 96% on 2 L, and blood pressure 158/68. LUNGS: Show decreased breath sounds. CARDIAC: Shows regular rhythm. ABDOMEN: Soft and nontender. SKIN/EXTREMITIES: Show no edema, clubbing, or cyanosis. There is tenderness to palpation in the lower back. ASSESSMENT: 1. Slowly improving compression fracture of L3. 2. Improved deconditioning. The patient walking 200 feet. 3. Stable but severe chronic obstructive pulmonary disease. 4. Fibromyalgia, chronic. 5. Irritable bowel, chronic. 6. Anxiety and depression, chronic, and somewhat limiting therapy. PLAN: Continue PT, OT. Arrange for hospital bed and bedside commode and hopefully wheelchair. Arrange for discharge in the next 1 to 2 days as the patient is maxing out on her therapy. Job ID: [id number]
[2020-09-06] MEDS: Lidocaine 5% Patch TD SCH (15:11)
[2020-09-06] MEDS: Gabapentin 300 MG CAP PO SCH (20:48)
[2020-09-06] MEDS: Atorvastatin Calcium 20 MG TAB PO SCH (20:49)
[2020-09-07] MEDS: Budesonide 0.5 MG/2 ML NEB NEB SCH ×2 (05:32→18:27)
[2020-09-07] MEDS: Fluticasone Propionate Nasal Spray 16 gm Bottle NASAL SCH (08:42)
[2020-09-07] MEDS: Lidocaine 5% Patch TD SCH (08:42)
[2020-09-07] MEDS: UMECLIDINIUM INH SCH (08:42)
[2020-09-07] MEDS: VILANTEROL INH SCH (08:42)
[2020-09-07] MEDS: guaiFENesin ER 600 MG TAB PO SCH ×2 (08:43→20:30)
[2020-09-07] MEDS: Gabapentin 100 MG CAP PO SCH ×2 (08:43→15:29)
[2020-09-07] MEDS: Simethicone Chewable 80 MG TAB PO SCH ×3 (08:44→20:30)
[2020-09-07] MEDS: Methocarbamol 500 MG TAB PO SCH ×3 (08:44→20:29)
[2020-09-07] MEDS: Citalopram 20 MG TAB PO SCH (08:44)
[2020-09-07] MEDS: Dicyclomine 10 MG CAP PO SCH ×2 (08:44→20:29)
[2020-09-07] MEDS: Metoprolol Tartrate 25 MG TAB PO SCH ×2 (08:44→20:30)
[2020-09-07] MEDS: predniSONE 20 MG TAB PO SCH (08:44)
[2020-09-07] MEDS: Folic Acid 1 MG TAB PO SCH (08:44)
[2020-09-07] MEDS: Docusate 100 MG CAP PO SCH ×2 (08:45→20:29)
[2020-09-07] MEDS: Polyethylene Glycol 3350 17 GM Packet PO SCH ×2 (08:45→20:30)
[2020-09-07] MEDS: ALPRAZolam 0.25 MG TAB PO PRN ×2 (10:11→20:29)
--- NOTE | 2020-09-07 20:11 | PRG ---
DATE OF SERVICE: SUBJECTIVE: Patient feels well, lying in the bed. States that her has the ramp ready, but the DME will not be ready for several more days. She is having no complaints at rest and is ready to go home. OBJECTIVE: VITAL SIGNS: Show temperature is 98, pulse 81, respirations 18, O2 sats 100% on room air, and blood pressure 107/67. LUNGS: Clear. Decreased breath sounds. CARDIAC EXAMINATION: Shows regular rhythm. ABDOMEN: Soft and nontender. EXTREMITIES: Show tenderness along the lower back. ASSESSMENT: 1. Stable steroid and oxygen-dependent chronic obstructive pulmonary disease, end-stage. 2. Recent compression fracture with persistent, but decreased pain and improved deconditioning. 3. Fibromyalgia, stable. 4. Irritable bowel, stable. 5. Anxiety and depression, stable. PLAN: 1. We will see if DME can present equipment earlier. 2. We will continue bronchodilators and low-dose steroids. 3. We will continue pain relief with gabapentin and Robaxin. Job ID: [id number]
--- NOTE | 2020-09-07 20:11 | PRG ---
DATE OF SERVICE: 09/06/2020 SUBJECTIVE: The patient is lying in the bed, states she cannot do any therapy this afternoon as her back is really hurting her, but she is ready to go home when her durable medical equipment is arrived. She is asking for a wheelchair and states that if insurance does not pay for it, she will pay for it. Her is building a ramp to her house. OBJECTIVE: VITAL SIGNS: Temperature 98.3, pulse 95, respirations 20, O2 saturations 97% on 2 L. LUNGS: Show decreased breath sounds. CARDIAC: Shows regular rhythm. ABDOMEN: Soft and nontender. SKIN AND EXTREMITIES: Display no edema or clubbing. There is palpable tenderness and spasm of the lower back. ASSESSMENT: 1. Fracture of lumbar spine with persistent pain. 2. Deconditioning, improving with the patient walking in the [place] with pain. 3. Fibromyalgia, stable. 4. Irritable bowel, stable. 5. Severe chronic obstructive pulmonary disease, on steroid, not oxygen dependent, but stable. PLAN: 1. I have requested a hospital bed and bedside commode as the patient does not have a handicap accessible house apartment. 2. Continue PT. 3. will have ramp built. Job ID: [id number]
[2020-09-07] MEDS: Gabapentin 300 MG CAP PO SCH (20:29)
[2020-09-07] MEDS: Atorvastatin Calcium 20 MG TAB PO SCH (20:30)
[2020-09-07] MEDS: Lidocaine Patch Removal 1 EACH TOP SCH (20:30)
[2020-09-08] MEDS: Budesonide 0.5 MG/2 ML NEB NEB SCH ×2 (05:38→18:28)
[2020-09-08] MEDS: Metoprolol Tartrate 25 MG TAB PO SCH ×2 (08:21→20:24)
[2020-09-08] MEDS: guaiFENesin ER 600 MG TAB PO SCH ×2 (08:21→20:24)
[2020-09-08] MEDS: Dicyclomine 10 MG CAP PO SCH ×2 (08:21→20:24)
[2020-09-08] MEDS: Methocarbamol 500 MG TAB PO SCH ×3 (08:22→20:24)
[2020-09-08] MEDS: Citalopram 20 MG TAB PO SCH (08:22)
[2020-09-08] MEDS: Folic Acid 1 MG TAB PO SCH (08:22)
[2020-09-08] MEDS: predniSONE 20 MG TAB PO SCH (08:22)
[2020-09-08] MEDS: Gabapentin 100 MG CAP PO SCH ×2 (08:22→14:40)
[2020-09-08] MEDS: VILANTEROL INH SCH (08:23)
[2020-09-08] MEDS: Simethicone Chewable 80 MG TAB PO SCH ×3 (08:23→20:24)
[2020-09-08] MEDS: Docusate 100 MG CAP PO SCH ×2 (08:23→20:23)
[2020-09-08] MEDS: UMECLIDINIUM INH SCH (08:23)
[2020-09-08] MEDS: Lidocaine 5% Patch TD SCH (08:24)
[2020-09-08] MEDS: Fluticasone Propionate Nasal Spray 16 gm Bottle NASAL SCH (08:24)
[2020-09-08] MEDS: Polyethylene Glycol 3350 17 GM Packet PO SCH ×2 (08:25→20:24)
[2020-09-08] MEDS: Acetaminophen 325 MG TAB PO PRN (09:04)
[2020-09-08] MEDS: ALPRAZolam 0.25 MG TAB PO PRN ×2 (09:04→20:23)
--- NOTE | 2020-09-08 20:01 | PRG ---
DATE OF SERVICE: 09/08/2020 SUBJECTIVE: The patient feels well except for some pain in her back on movement, but not at rest. She is awaiting DME tomorrow and ready to be discharged home. OBJECTIVE: VITAL SIGNS: Temperature is 98.4, pulse 84, respirations 18, O2 saturations 99% on 2 L, blood pressure 132/64. LUNGS: Clear. CARDIAC: Showed regular rhythm. ABDOMEN: Soft and nontender. SKIN/EXTREMITIES: Show tender lower back palpation. ASSESSMENT: 1. Slowly resolving compression fracture of L2, L3. 2. Stable fibromyalgia. 3. Stable irritable bowel. 4. Stable anxiety and depression. 5. Severe chronic obstructive pulmonary disease, end-stage steroid, not oxygen dependent, stable. 6. Deconditioning improved as the patient is walking 200 to 300 feet despite pain. PLAN: 1. Continue PT/OT tomorrow. Arrange for DME and [facility] and the patient to order wheelchair, if Medicare will not pay. 2. Continue maximum bronchodilator, steroid, not oxygen therapy for COPD. Job ID: [id number]
[2020-09-08] MEDS: Gabapentin 300 MG CAP PO SCH (20:23)
[2020-09-08] MEDS: Lidocaine Patch Removal 1 EACH TOP SCH (20:24)
[2020-09-08] MEDS: Atorvastatin Calcium 20 MG TAB PO SCH (20:24)
[2020-09-09] MEDS: Budesonide 0.5 MG/2 ML NEB NEB SCH ×2 (05:20→17:41)
[2020-09-09] MEDS: predniSONE 20 MG TAB PO SCH (08:25)
[2020-09-09] MEDS: Citalopram 20 MG TAB PO SCH (08:26)
[2020-09-09] MEDS: Fluticasone Propionate Nasal Spray 16 gm Bottle NASAL SCH (08:27)
[2020-09-09] MEDS: Dicyclomine 10 MG CAP PO SCH ×2 (08:27→20:54)
[2020-09-09] MEDS: Docusate 100 MG CAP PO SCH ×2 (08:27→20:51)
[2020-09-09] MEDS: Gabapentin 100 MG CAP PO SCH ×2 (08:28→14:17)
[2020-09-09] MEDS: Folic Acid 1 MG TAB PO SCH (08:28)
[2020-09-09] MEDS: guaiFENesin ER 600 MG TAB PO SCH ×2 (08:29→20:51)
[2020-09-09] MEDS: Metoprolol Tartrate 25 MG TAB PO SCH ×2 (08:30→20:53)
[2020-09-09] MEDS: Polyethylene Glycol 3350 17 GM Packet PO SCH ×2 (08:30→20:54)
[2020-09-09] MEDS: Lidocaine 5% Patch TD SCH (08:30)
[2020-09-09] MEDS: UMECLIDINIUM INH SCH (08:30)
[2020-09-09] MEDS: Methocarbamol 500 MG TAB PO SCH ×3 (08:30→20:52)
[2020-09-09] MEDS: VILANTEROL INH SCH (08:30)
[2020-09-09] MEDS: Acetaminophen 325 MG TAB PO PRN ×2 (08:31→14:20)
[2020-09-09] MEDS: Simethicone Chewable 80 MG TAB PO SCH ×4 (08:31→21:05)
[2020-09-09] MEDS ORDERED: Iopamidol 370 76% 100 ML VIAL ONE (09:00)
[2020-09-09 09:44] LABS: #Basophils 0.2 thou/uL (0.0-0.2); #Lymphocytes 0.9 thou/uL (1.20-3.40); #Monocytes 0.7 thou/uL (0.11-0.59); #Neutrophils 6.3 thou/uL (1.40-6.50); %Eosinophils 0.4 % (0.0-10.0); %Lymphocytes 11.2 % (21.0-51.0); %Monocytes 8.3 % (0.0-10.0); %Neutrophils 78.1 % (42.0-75.0); Hemoglobin 11.8 g/dL (12.0-16.0); Mean Corpuscular HGB CONC 33.9 g/dL (32.0-36.0); Mean Corpuscular Volume 97.5 fL (78.0-98.0); Mean Platelet Volume 5.4 fL (7.4-10.4); Platelet Count 377 thou/uL (130-400); RBC Distribution Width 12.8 % (11.5-14.5); Red Blood Cell (RBC) Count 3.58 mill/uL (4.20-5.40); White Blood Cell (WBC) Count 8.1 thou/uL (4.8-10.8)
[2020-09-09 09:56] LABS: ALT (SGPT) 16 U/L (8-55); AST (SGOT) 16 U/L (5-34); Albumin 3.5 g/dL (3.4-4.8); Alkaline Phosphatase 137 U/L (40-110); Anion Gap 16 mmol/L (10-20); BUN (Urea Nitrogen) 6 mg/dL (9.8-20.1); Bilirubin, Total 0.2 mg/dL (0.2-1.2); Calc. Creatinine Clearance 80 mL/min (70-130); Calcium 8.8 mg/dL (7.8-10.44); Carbon Dioxide 22 mmol/L (23-31); Chloride 96 mmol/L (98-107); Estimated GFR-MDRD 81; Globulin 2.4 g/dL (2.4-3.5); Glucose 111 mg/dL (83-110); Potassium 3.6 mmol/L (3.5-5.1); Protein, Total 5.9 g/dL (6.0-8.3); Sodium 130 mmol/L (136-145)
--- NOTE | 2020-09-09 10:51 | PRG ---
DATE OF SERVICE: 09/09/2020 SUBJECTIVE: The patient had an episode of syncope today lasting a few seconds while sitting in her chair after a bowel movement. This was not associated with any chest pain, but was associated with epigastric pain, nausea, and dizziness prior to the episode. It lasted only a few seconds and was relieved quickly by placing back in the bed. OBJECTIVE: VITAL SIGNS: Her vital signs remained stable once she was back in the bed with a blood pressure of 107/67, temperature is 98, pulse 100, respirations 18, O2 sats 99%. ABDOMEN: Soft with diffuse tenderness more in the right upper quadrant, epigastric region with some rebound. There are good bowel sounds. LUNGS: Clear. CARDIAC: Shows regular rhythm. NEUROLOGIC: Intact. IMAGING STUDIES: EKG showed normal sinus rhythm with nonspecific ST changes. LABORATORY DATA: Laboratories done, showed a sodium of 130, potassium 3.6, chloride 96, bicarb 22, BUN 6, creatinine 0.7, alkaline phosphatase 137, AST 16, ALT 16. White count is 8100, hematocrit 35, hemoglobin 11.8. ASSESSMENT: 1. Syncope while sitting in the chair with resolution of quickly upon lying down, consistent most likely with vasovagal, but as the patient does appear to have some increased abdominal tenderness, even though she always has abdominal tenderness, we will get abdominal CT scan with a well contrast to evaluate for perforation or abdominal aortic catastrophe. She will also have a troponin done this afternoon to evaluate for any elevation, although EKG shows no acute changes. 2. Chronic obstructive pulmonary disease, appears to be stable with no hypoxemia. 3. Compression fracture of the back, stable with persistent back pain. 4. Anxiety and depression, increased. PLAN: 1. Abdominal and pelvic CT scan with and without contrast. 2. Troponin. 3. Discuss with after evaluation. 4. Obtain hospital bed, bedside commode, and wheelchair to be delivered to the house tomorrow. Job ID: [id number]
[2020-09-09 14:07] LABS: Bilirubin Negative (Negative); Blood, Urine Negative (Negative); Clarity Clear (Clear); Glucose, Urine (Dipstick) Negative (Negative); Ketone, Urine Negative (Negative); Leukocyte Negative (Negative); Nitrite Negative (Negative); Protein, Urine (Dipstick) Negative (Neg-Trace); Urobilinogen 0.2 mg/dL (Less than 2)
[2020-09-09 14:15] LABS: Bacteria/HPF 1+ HPF (None Seen); RBC/HPF None Seen HPF (0-3); Squamous Epithelial 0-3 HPF (0-3); WBC/HPF None Seen HPF (0-3)
[2020-09-09 14:20] LABS: Troponin I Less than 0.010 ng/mL (< 0.028)
--- NOTE | 2020-09-09 14:53 | CT ---
CT ABDOMEN AND PELVIS WITH IV CONTRAST 09/09/2020 CLINICAL INFORMATION: Abdominal pain which started this a.m. History of inflammatory bowel syndrome. Patient with acute L3 fracture and undergoing pain control. COMPARISON: CTA chest on 08/22/[address] abdomen and pelvis on 05/10/2020 Technique: Multiple contiguous axial CT images are obtained through the abdomen and pelvis with IV contrast. Cor onal reformatted images are provided. FINDINGS: Lower Chest: There is mild bibasilar atelectasis. Vessels: Dense vascular calcifications are again seen in the abdominal aorta and involving the iliac arteries. Abdomen: Portal vein:Patent Gallbladder: Not visualized and likely surgically absent. Liver: within normal limits. Spleen: within normal limits. Pancreas: within normal limits. Adrenals: Again noted is abnormal lobular thickening and nodularity involving each adrenal gland whic h is not significantly changed when compared to recent CTA of the chest, but the adrenal glands are more prominent than on study of 05/10/2020. There is suggested areas of eccentric mild enhancement whic h could be related to hypervascularity and secondary to adrenal hyperplasia; however, further evaluation with PET CT scan examination is recommended. Kidneys: within normal limits. Bowel: Very small hiatal hernia is present. Loops of small bowel are normal in caliber. There is colo yamileth diverticulosis involving the sigmoid colon. Appendix: Not visualized, no secondary signs are seen to suggest appendicitis. Peritoneum: No ascites or free air; no fluid collection. Mesentery and Retroperitoneum: No enlarged mesenteric or retroperitoneal lymph nodes. Abdominal Wall: Small fat-containing umbilical hernia is again seen. Pelvis: Reproductive Organs: Evidence of hysterectomy. Bladder: within normal limits. Bones: Fracture involving the superior endplate L3 vertebral body is present. This fracture was seen on the MRI lumbar spine on 08/26/2020. The degree of height loss along the superior endplate although mild has slightly progressed compared to recent MRI exam. There is slight retropulsion of th e posterior superior endplate of the L3 vertebral body with mild effacement of the ventral aspect of the thecal sac. IMPRESSION: 1. Abnormal lobular thickening and overall nodular appearance of each adrenal gland which has increas ed compared to study on 05/10/2020. Findings could be related to adrenal hyperplasia with areas of slight peripheral nodular enhancement possibly related to hypervascularity due to adrenal hyperplasia , but bilateral adrenal nodules is a possibility. PET CT examination is recommended for further evaluation. 2. Mild burst fracture superior endplate L3 vertebral body. Degree of height loss along the superior endplate does appear slightly progressed when compared to MRI exam on 08/26/2020. 3. Colonic diverticulosis. 4. Hysterectomy. 5. No acute findings in the abdomen or pelvis.
[2020-09-09] MEDS: Gabapentin 300 MG CAP PO SCH (20:52)
[2020-09-09] MEDS: Atorvastatin Calcium 20 MG TAB PO SCH (20:53)
[2020-09-09] MEDS: Lidocaine Patch Removal 1 EACH TOP SCH (20:53)
[2020-09-09] MEDS: ALPRAZolam 0.25 MG TAB PO PRN (20:53)
[2020-09-10] MEDS: Budesonide 0.5 MG/2 ML NEB NEB SCH (05:48)
[2020-09-10 08:10] VITALS: BP 111/60; TEMP 98.2
[2020-09-10] MEDS: Fluticasone Propionate Nasal Spray 16 gm Bottle NASAL SCH (08:30)
[2020-09-10] MEDS: predniSONE 20 MG TAB PO SCH (08:31)
[2020-09-10] MEDS: Citalopram 20 MG TAB PO SCH (08:32)
[2020-09-10] MEDS: Dicyclomine 10 MG CAP PO SCH (08:33)
[2020-09-10] MEDS: Docusate 100 MG CAP PO SCH (08:33)
[2020-09-10] MEDS: Gabapentin 100 MG CAP PO SCH (08:34)
[2020-09-10] MEDS: Folic Acid 1 MG TAB PO SCH (08:34)
[2020-09-10] MEDS: Lidocaine 5% Patch TD SCH (08:35)
[2020-09-10] MEDS: Metoprolol Tartrate 25 MG TAB PO SCH (08:35)
[2020-09-10] MEDS: Methocarbamol 500 MG TAB PO SCH (08:35)
[2020-09-10] MEDS: guaiFENesin ER 600 MG TAB PO SCH (08:35)
[2020-09-10] MEDS: Polyethylene Glycol 3350 17 GM Packet PO SCH (08:36)
[2020-09-10] MEDS: Simethicone Chewable 80 MG TAB PO SCH (08:36)
[2020-09-10] MEDS: UMECLIDINIUM INH SCH (08:36)
[2020-09-10] MEDS: Acetaminophen 325 MG TAB PO PRN (08:36)
[2020-09-10] MEDS: VILANTEROL INH SCH (08:36)
== END 2020-09-10 11:28 | disposition home or self-care (01) | DRG 560 ==
LOC: NAV ACUTE 10:18
PROVIDERS: ADMIT Internal Medicine; ATTEND Internal Medicine
DX: M48.56XD Collapsed vertebra, not elsewhere classified, lumbar region, subsequent encounter for fracture with routine healing (principal); E87.1 Hypo-osmolality and hyponatremia; K58.9 Irritable bowel syndrome, unspecified; M79.7 Fibromyalgia; F41.9 Anxiety disorder, unspecified; F32.9 Major depressive disorder, single episode, unspecified; R53.81 Other malaise; J44.9 Chronic obstructive pulmonary disease, unspecified; Z99.81 Dependence on supplemental oxygen; Z88.0 Allergy status to penicillin; Z88.2 Allergy status to sulfonamides; Z88.8 Allergy status to other drugs, medicaments and biological substances
CPT/HCPCS: 36415; 74178; 80048; 80053; 81001; 84484; 85025; J7512; J7626; Q9967